=== PATIENT | male | born 1950 | race Caucasian/White ===

== ENCOUNTER → 2022-06-04 09:03 | Outpatient (CLI) | payer MEDICARE, BC, SELFPAY ==
--- NOTE | ~2022-06-04 | XR_ITS ---
XR hip RT min 2V DATE: 06/04/2022 09:26 INDICATION: Right hip pain TECHNIQUE: AP, lateral, crosstable lateral views of right hip COMPARISON: None FINDINGS: Numerous surgical clips overlie the pelvis and prostate bed. No fracture or dislocation, avascular necrosis or bone destruction of the right hip is detected. Righ t hip joint space appears relatively preserved. The urinary IMPRESSION: No significant abnormality of right hip Reviewed, dictated and finalized at location A. ING INSPECTORS
--- NOTE | ~2022-06-04 | XR_ITS ---
XR knee RT 3V DATE: 06/04/2022 09:26 INDICATION: Right knee pain. TECHNIQUE: AP, lateral, sunrise views COMPARISON: None FINDINGS: There is minimal periarticular spurring of the patella. There is mild loss of height of med ial compartment joint space. No fracture or dislocation or joint effusion is detected. No periosteal reaction or bone destruction. No radiopaque intra-articular loose body or chondrocalcinosis. IMPRESSION: Mild right knee osteoarthritis Reviewed, dictated and finalized at location A. 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
== END ==
PROVIDERS: PCP Internal Medicine; Visit Provider Internal Medicine
DX: M25.551 Pain in right hip (principal); M25.561 Pain in right knee; M17.11 Unilateral primary osteoarthritis, right knee
CPT/HCPCS: 73502; 73562

== ENCOUNTER 2022-07-10 11:00 | Outpatient (RCR) | payer MEDICARE, BC, SELFPAY ==
--- NOTE | 2022-06-12 15:42 | PTOPEVAL1 ---
Assessment and note entered by Maria Elena Landin, PT, DPT Evaluation Information Assessment Status Evaluation Diagnosis R hip pain Onset 3-4 months Subjective Information Pt states he is having some R hip pain. He states this started in his groin area, but now it hurts in his whole thigh, down to his knee. He states sometimes his knee will give out on him when he is walking. He states some days it is hard to walk. He rates his pain a 6/10 now, and a 10/10 at its worst in the last week. Reported Pain Level Pain Score 6: Self Report Assessment PT Clinical Summary Ramirez is a 71 y/o who presents to therapy today with a diagnosis of R hip pain. Today he demonstrates increased resistance during passive ROM with the R hip. He has decreased hip strength on the R as well as gritty tissue along his R ITB and quadriceps muscle belly. He demonstrates mild gait deviations with a Trendelenburg pattern. Skilled physical therapy services are indicated to improve ROM, strength, pain, functional mobility, and to return to baseline function. Plan of Care Interventions Electrical Stimulation,Gait Training,Hot Pack/Cold Pack,Manual Therapy,Neuro Re-education,Patient/ Caregiver Educati,Therapeutic Activities, Therapeutic Exercise PT Services Indicated Yes Treatment Frequency and 2x/wk for 4 wks Duration These treatments will address the objective and functional deficits as defined above. The patient will be advanced safely and appropriately in order for the patient to progress towards his/her prior level of function. Additional exercises will be introduced and as well as a comprehensive home exercise program upon discharge, if needed, ?to ensure carryover of functional gains achieved in the clinic. This treatment plan has been reviewed and agreement upon by the patient.
--- NOTE | 2022-07-10 11:30 | PTOPDC ---
Assessment and note entered by Maria Elena Landin, PT, DPT Evaluation Information Assessment Status Discharge Diagnosis R hip pain Onset 3-4 months Subjective Information Pt states overall he is doing good. He states his R hip is doing better, his knees genet have been aching from the exercise but this is getting better as well. Pt seems unmotivated to participate in therapy this date. Pt reports 90% improvement in his overall symptoms . Reported Pain Level Pain Score 0: Self Report Assessment PT Clinical Summary Ramirez presents to therapy today for his progress report following 6 visits of skilled therapy to treat his R hip pain. He reports improvements in his pain. However today he does not demonstrate any measurable improvements in strength or ROM, he also ambulated with a minor decreased gait speed compared to him initial evaluation. He states [place] leaving out of state [place] 6 [place]. He states he will follow up with his referring provider if needed when he returns. It is recommended that he continue his HEP upon discharge today. Discussed with patient the importance of continuing his HEP. Plan of Care Treatment Frequency and to be discharged Duration
== END 2022-07-10 14:28 | disposition home or self-care (01) ==
LOC: ANHGOSHPT 11:00
PROVIDERS: PCP Internal Medicine; Visit Provider Internal Medicine
DX: M25.551 Pain in right hip (principal); R10.31 Right lower quadrant pain
CPT/HCPCS: 97110; 97112; 97140; 97161

== ENCOUNTER 2022-08-30 10:59 | Outpatient (CLI) | payer MEDICARE, BC, SELFPAY ==
[2022-08-30 19:23] LABS: Basophils Absolute Auto 0.1 K/mm3 (0.0-0.1); Basophils Percent Auto 0.5 % (0.2-1.2); Eosinophils Absolute Auto 0.1 K/mm3 (0-0.3); Hematocrit 37.2 % (42.0-52.0); Hemoglobin 12.8 g/dL (14.0-18.0); Immature Granulocyte Absolute 0.14 K/mm3 (0.00-0.031); Immature Granulocyte Percent A 1.1 % (0-0.5); Lymphocytes Absolute Auto 1.08 K/mm3 (0.9-3.2); Lymphocytes Percent Auto 8.2 % (18.3-44.2); Mean Corpuscular HGB Conc 34.4 g/dl (32-36); Mean Corpuscular Hemoglobin 31.8 pg (26-34); Mean Corpuscular Volume 92.3 fl (80-100); Mean Platelet Volume 9.8 fl (7.4-10.4); Monocytes Absolute Auto 0.6 K/mm3 (0.1-0.6); Monocytes Percent Auto 4.6 % (2.6-8.5); Neutrophils Absolute Auto 11.1 K/mm3 (1.3-6.7); Neutrophils Percent Auto 84.6 % (45.5-73.1); Platelet Count Result 200 k/mm3 (150-375); Red Blood Count 4.03 M/mm3 (4.6-6.20); Red Cell Distribution Width 11.9 % (11.5-14.5); White Blood Count 13.1 K/mm3 (4.5-10.0)
[2022-08-30 19:36] LABS: Hemoglobin A1C 7.4 % (<5.7)
[2022-08-30 19:47] LABS: Alanine Aminotransferase 23 U/L (6-50); Albumin Level 4.1 g/dL (3.5-5.1); Alkaline Phosphatase 44 U/L (38-126); Anion Gap 6 mmol/L (8-16); Aspartate Amino Transferase 23 U/L (17-59); Blood Urea Nitrogen 26 mg/dL (9-20); Calcium 9.5 mg/dL (8.4-10.2); Carbon Dioxide 30 mmol/L (22-30); Chloride 94 mmol/L (98-107); Cholesterol 134 mg/dL (0-200); Estimated Glomerular Filt Rate 59; Glucose 183 mg/dL (65-110); HDL Direct 35 mg/dL; Sodium 130 mmol/L (137-145); Triglycerides 237 mg/dL (<150)
[2022-08-30 19:58] LABS: LDL Cholesterol Direct 66 mg/dL
[2022-08-30 20:15] LABS: Prostate Specific Antigen < 0.1 ng/mL (< OR = 4.0)
[2022-08-30 20:17] LABS: Creatinine Urine 76.2 mg/dL
[2022-08-30 20:22] LABS: MALB Creatinine Ratio 74.1 mg/g (0-30); Microalbumin Urine Random 56.5 mg/L (0-16.7)
== END 2022-08-30 11:00 | disposition home or self-care (01) ==
LOC: ANHGOSHLAB 11:01
PROVIDERS: PCP Internal Medicine; Visit Provider Internal Medicine
DX: C61 Malignant neoplasm of prostate (principal); R10.9 Unspecified abdominal pain; E11.69 Type 2 diabetes mellitus with other specified complication; E78.5 Hyperlipidemia, unspecified
CPT/HCPCS: 36415; 80053; 80061; 82043; 83036; 84153; 85025

== ENCOUNTER 2022-09-24 08:06 | Outpatient (CLI) | payer MEDICARE, BC, SELFPAY ==
[2022-09-24 19:24] LABS: Basophils Absolute Auto 0.1 K/mm3 (0.0-0.1); Basophils Percent Auto 0.6 % (0.2-1.2); Eosinophils Absolute Auto 0.2 K/mm3 (0-0.3); Eosinophils Percent Auto 1.7 % (0-4.4); Hematocrit 35.2 % (42.0-52.0); Hemoglobin 11.8 g/dL (14.0-18.0); Immature Granulocyte Absolute 0.14 K/mm3 (0.00-0.031); Immature Granulocyte Percent A 1.3 % (0-0.5); Lymphocytes Absolute Auto 1.22 K/mm3 (0.9-3.2); Lymphocytes Percent Auto 11.3 % (18.3-44.2); Mean Corpuscular HGB Conc 33.5 g/dl (32-36); Mean Corpuscular Hemoglobin 32.2 pg (26-34); Mean Corpuscular Volume 95.9 fl (80-100); Mean Platelet Volume 10.8 fl (7.4-10.4); Monocytes Absolute Auto 0.6 K/mm3 (0.1-0.6); Monocytes Percent Auto 5.8 % (2.6-8.5); Neutrophils Absolute Auto 8.6 K/mm3 (1.3-6.7); Neutrophils Percent Auto 79.3 % (45.5-73.1); Platelet Count Result 169 k/mm3 (150-375); Red Blood Count 3.67 M/mm3 (4.6-6.20); Red Cell Distribution Width 12.6 % (11.5-14.5); White Blood Count 10.8 K/mm3 (4.5-10.0)
[2022-09-24 20:50] LABS: Folic Acid > 20.0 ng/mL (2.76->20)
== END 2022-09-24 08:07 | disposition home or self-care (01) ==
LOC: ANHGOSHLAB 08:09
PROVIDERS: PCP Internal Medicine; Visit Provider Internal Medicine
DX: D64.9 Anemia, unspecified (principal); D72.829 Elevated white blood cell count, unspecified
CPT/HCPCS: 36415; 82607; 82728; 82746; 85025

== ENCOUNTER 2022-10-01 12:49 | Outpatient (CLI) | payer MEDICARE, BC, SELFPAY ==
[2022-10-01 18:46] LABS: Basophils Absolute Auto 0.1 K/mm3 (0.0-0.1); Basophils Percent Auto 0.6 % (0.2-1.2); Eosinophils Absolute Auto 0.2 K/mm3 (0-0.3); Hematocrit 37.5 % (42.0-52.0); Hemoglobin 12.6 g/dL (14.0-18.0); Immature Granulocyte Absolute 0.15 K/mm3 (0.00-0.031); Immature Granulocyte Percent A 1.4 % (0-0.5); Lymphocytes Absolute Auto 1.49 K/mm3 (0.9-3.2); Lymphocytes Percent Auto 13.8 % (18.3-44.2); Mean Corpuscular HGB Conc 33.6 g/dl (32-36); Mean Corpuscular Hemoglobin 32.2 pg (26-34); Mean Corpuscular Volume 95.9 fl (80-100); Mean Platelet Volume 9.4 fl (7.4-10.4); Monocytes Absolute Auto 0.8 K/mm3 (0.1-0.6); Monocytes Percent Auto 7.6 % (2.6-8.5); Neutrophils Percent Auto 74.6 % (45.5-73.1); Platelet Count Result 222 k/mm3 (150-375); Red Blood Count 3.91 M/mm3 (4.6-6.20); Red Cell Distribution Width 12.5 % (11.5-14.5); White Blood Count 10.8 K/mm3 (4.5-10.0)
[2022-10-01 19:38] LABS: Prostate Specific Antigen < 0.1 ng/mL (< OR = 4.0)
[2022-10-01 19:57] LABS: Hemoglobin A1C 7.7 % (<5.7)
[2022-10-01 21:39] LABS: Alanine Aminotransferase 21 U/L (6-50); Albumin Level 4.2 g/dL (3.5-5.1); Alkaline Phosphatase 47 U/L (38-126); Anion Gap 7 mmol/L (8-16); Aspartate Amino Transferase 20 U/L (17-59); Bilirubin,Total 0.8 mg/dL (0.2-1.3); Blood Urea Nitrogen 25 mg/dL (9-20); Calcium 9.7 mg/dL (8.4-10.2); Carbon Dioxide 27 mmol/L (22-30); Chloride 100 mmol/L (98-107); Estimated Glomerular Filt Rate 59; Glucose 168 mg/dL (65-110); Potassium 4.4 mmol/L (3.4-5.0); Sodium 134 mmol/L (137-145)
== END 2022-10-01 12:50 | disposition home or self-care (01) ==
PROVIDERS: PCP Internal Medicine
DX: D72.829 Elevated white blood cell count, unspecified (principal); D72.9 Disorder of white blood cells, unspecified; E87.1 Hypo-osmolality and hyponatremia; D64.9 Anemia, unspecified; E11.69 Type 2 diabetes mellitus with other specified complication; C61 Malignant neoplasm of prostate
CPT/HCPCS: 36415; 80053; 83036; 84153; 85025

== ENCOUNTER 2023-02-27 11:13 | Outpatient (CLI) | payer MEDICARE, BC, SELFPAY ==
[2023-02-27 11:42] LABS: Basophils Absolute Auto 0.1 K/mm3 (0.0-0.1); Basophils Percent Auto 0.6 % (0.2-1.2); Eosinophils Absolute Auto 0.4 K/mm3 (0-0.3); Eosinophils Percent Auto 3.2 % (0-4.4); Hemoglobin 11.9 g/dL (14.0-18.0); Immature Granulocyte Absolute 0.09 K/mm3 (0.00-0.031); Immature Granulocyte Percent A 0.8 % (0-0.5); Lymphocytes Absolute Auto 1.12 K/mm3 (0.9-3.2); Lymphocytes Percent Auto 9.9 % (18.3-44.2); Mean Corpuscular Hemoglobin 31.1 pg (26-34); Mean Corpuscular Volume 91.4 fl (80-100); Mean Platelet Volume 8.2 fl (7.4-10.4); Monocytes Absolute Auto 0.9 K/mm3 (0.1-0.6); Monocytes Percent Auto 7.6 % (2.6-8.5); Neutrophils Absolute Auto 8.8 K/mm3 (1.3-6.7); Neutrophils Percent Auto 77.9 % (45.5-73.1); Platelet Count Result 220 k/mm3 (150-375); Red Blood Count 3.83 M/mm3 (4.6-6.20); Red Cell Distribution Width 12.5 % (11.5-14.5); White Blood Count 11.3 K/mm3 (4.5-10.0)
[2023-02-27 13:46] LABS: Iron 123 ug/dL (49-181)
[2023-02-27 13:59] LABS: Alanine Aminotransferase 18 U/L (6-50); Albumin Level 4.1 g/dL (3.5-5.1); Alkaline Phosphatase 59 U/L (38-126); Anion Gap 9 mmol/L (8-16); Aspartate Amino Transferase 18 U/L (17-59); Blood Urea Nitrogen 27 mg/dL (9-20); Calcium 9.8 mg/dL (8.4-10.2); Carbon Dioxide 25 mmol/L (22-30); Chloride 97 mmol/L (98-107); Estimated Glomerular Filt Rate 46; Glucose 177 mg/dL (65-110); Sodium 131 mmol/L (137-145)
[2023-02-27 14:01] LABS: Percent Iron Saturation 31 % (20-50)
[2023-02-27 14:15] LABS: Erythrocyte Sedimentation Rate 32 mm/hr (0-20)
[2023-02-27 14:59] LABS: Folic Acid > 20.0 ng/mL (2.76->20)
[2023-03-04 09:40] LABS: Methylmalonic Acid 186
== END 2023-02-27 11:14 | disposition home or self-care (01) ==
LOC: ANHLAB 11:16
PROVIDERS: PCP Internal Medicine; Visit Provider Internal Medicine Hematology & Oncology
DX: D72.829 Elevated white blood cell count, unspecified (principal); D64.9 Anemia, unspecified
CPT/HCPCS: 36415; 80053; 82607; 82728; 82746; 83540; 83550; 83921; 85025; 85652; 86140; 88184; 88185

== ENCOUNTER 2023-03-03 09:44 | Outpatient (CLI) | payer MEDICARE, BC, SELFPAY ==
[2023-03-03 11:42] LABS: Appearance Urine Turbid (Clear); Bacteria Urine None Seen /hpf; Bilirubin Urine Negative (Negative); Blood Urine Negative (Negative); Color Urine Dark Yellow (Yellow); Glucose Urine UA Negative (Negative); Ketones Urine Trace mg/dL (Negative); Leukocyte Esterase Ur Negative LEU/UL (NEGATIVE); Nitrate Urine Negative (Negative); Protein Urine 1+ mg/dL (Negative); RBC Urine 0-2 /hpf (0-2); Specific Grav Ur 1.018 (1.001-1.035); Squamous Epithelial Cell Urine None seen /hpf (Few); WBC Urine 0-5 /hpf (0-3)
[2023-03-03 11:53] LABS: Add Urine Microscopic? YES
[2023-03-03 11:55] LABS: Anion Gap 5 mmol/L (8-16); Blood Urea Nitrogen 26 mg/dL (9-20); Calcium 10.2 mg/dL (8.4-10.2); Carbon Dioxide 31 mmol/L (22-30); Chloride 95 mmol/L (98-107); Estimated Glomerular Filt Rate 46; Glucose 175 mg/dL (65-110); Potassium 5.5 mmol/L (3.4-5.0); Sodium 131 mmol/L (137-145)
[2023-03-03 12:19] LABS: Prostate Specific Antigen < 0.1 ng/mL (< OR = 4.0)
[2023-03-07 17:00] LABS: Testosterone Free 51.5 pg/mL (30.0-135.0); Testosterone Total 341 ng/dL (250-1100)
[2023-03-10 00:03] LABS: Creatinine, Random Urine 159 mg/dL (20-320); Total Protein/Creatinine Ratio 189 mg/g creat (25-148)
== END 2023-03-03 09:45 | disposition home or self-care (01) ==
LOC: ANHGOSHLAB 09:46
PROVIDERS: PCP Internal Medicine; Visit Provider Internal Medicine
DX: R53.83 Other fatigue (principal); E11.9 Type 2 diabetes mellitus without complications; N28.9 Disorder of kidney and ureter, unspecified; C61 Malignant neoplasm of prostate; E11.69 Type 2 diabetes mellitus with other specified complication; D64.9 Anemia, unspecified
CPT/HCPCS: 36415; 80048; 81001; 82570; 83036; 84153; 84156; 84166; 84402; 84403

== ENCOUNTER 2023-04-21 06:41 | Outpatient (CLI) | payer MEDICARE, BC, SELFPAY | END 2023-04-21 06:42 | disposition home or self-care (01) | LOC: ANHOUTPT 06:42 | PROVIDERS: PCP Internal Medicine; Visit Provider Internal Medicine | DX: E27.40 Unspecified adrenocortical insufficiency (principal); E87.5 Hyperkalemia | CPT/HCPCS: 36415; 82533; 96372; J0834 ==

== ENCOUNTER 2023-05-13 14:03 | Outpatient (CLI) | payer MEDICARE, BC, SELFPAY ==
[2023-05-13 19:12] LABS: Anion Gap 6 mmol/L (8-16); Blood Urea Nitrogen 24 mg/dL (9-20); Calcium 9.6 mg/dL (8.4-10.2); Carbon Dioxide 32 mmol/L (22-30); Chloride 96 mmol/L (98-107); Estimated Glomerular Filt Rate 54; Glucose 178 mg/dL (65-110); Potassium 4.1 mmol/L (3.4-5.0); Sodium 134 mmol/L (137-145)
== END 2023-05-13 14:04 | disposition home or self-care (01) ==
LOC: ANHGOSHLAB 14:06
PROVIDERS: PCP Internal Medicine; Visit Provider Internal Medicine
DX: N28.9 Disorder of kidney and ureter, unspecified (principal); E87.5 Hyperkalemia
CPT/HCPCS: 36415; 80048; 86803

== ENCOUNTER 2023-08-15 12:40 | Outpatient (CLI) | payer MEDICARE, BC, SELFPAY ==
[2023-08-15 13:00] LABS: Basophils Absolute Auto 0.1 K/mm3 (0.0-0.1); Basophils Percent Auto 0.5 % (0.2-1.2); Eosinophils Absolute Auto 0.4 K/mm3 (0-0.3); Eosinophils Percent Auto 3.3 % (0-4.4); Hematocrit 36.1 % (42.0-52.0); Hemoglobin 12.3 g/dL (14.0-18.0); Immature Granulocyte Absolute 0.14 K/mm3 (0.00-0.031); Immature Granulocyte Percent A 1.2 % (0-0.5); Lymphocytes Absolute Auto 1.22 K/mm3 (0.9-3.2); Lymphocytes Percent Auto 10.8 % (18.3-44.2); Mean Corpuscular HGB Conc 34.1 g/dl (32-36); Mean Corpuscular Hemoglobin 30.8 pg (26-34); Mean Corpuscular Volume 90.3 fl (80-100); Mean Platelet Volume 8.3 fl (7.4-10.4); Monocytes Percent Auto 8.7 % (2.6-8.5); Neutrophils Absolute Auto 8.5 K/mm3 (1.3-6.7); Neutrophils Percent Auto 75.5 % (45.5-73.1); Platelet Count Result 246 k/mm3 (150-375); Red Cell Distribution Width 12.6 % (11.5-14.5); White Blood Count 11.3 K/mm3 (4.5-10.0)
[2023-08-15 15:32] LABS: Anion Gap 7 mmol/L (8-16); Blood Urea Nitrogen 14 mg/dL (9-20); Calcium 10.4 mg/dL (8.4-10.2); Carbon Dioxide 32 mmol/L (22-30); Chloride 96 mmol/L (98-107); Estimated Glomerular Filt Rate 46; Glucose 144 mg/dL (65-110); Potassium 4.3 mmol/L (3.4-5.0); Sodium 135 mmol/L (137-145)
== END 2023-08-15 12:41 | disposition home or self-care (01) ==
LOC: ANHLAB 12:42
PROVIDERS: PCP Internal Medicine; Visit Provider Internal Medicine Hematology & Oncology
DX: D64.9 Anemia, unspecified (principal)
CPT/HCPCS: 36415; 80048; 85025

== ENCOUNTER → 2023-08-25 14:16 | Outpatient (CLI) | payer MEDICARE, BC, SELFPAY ==
--- NOTE | ~2023-08-25 | XR_ITS ---
EXAMINATION: XR shoulder RT min 2V DATE: 08/25/2023 14:36 INDICATION: Right shoulder pain. TECHNIQUE: 4 views of right shoulder were obtained. COMPARISON: None. FINDINGS: Bone alignment is normal. No fracture. There is mild osteoarthritis of acromioclavicular anne marie int and advanced osteoarthritis of glenohumeral joint. IMPRESSION: 1. Polyarticular osteoarthritis. Reviewed, dictated and finalized at location A. 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
== END ==
PROVIDERS: PCP Internal Medicine; Visit Provider Clinical Nurse Specialist
DX: M19.011 Primary osteoarthritis, right shoulder (principal)
CPT/HCPCS: 73030

== ENCOUNTER 2023-08-25 14:32 | Outpatient (CLI) | payer MEDICARE, BC, SELFPAY ==
[2023-08-25 19:51] LABS: Hepatitis C Virus Antibody Negative (Negative)
[2023-08-25 21:08] LABS: Prostate Specific Antigen < 0.1 ng/mL (< OR = 4.0)
[2023-08-25 21:30] LABS: Hemoglobin A1C 7.9 % (<5.7)
== END 2023-08-25 14:33 | disposition home or self-care (01) ==
LOC: ANHGOSHLAB 14:34
PROVIDERS: PCP Internal Medicine; Visit Provider Internal Medicine
DX: C61 Malignant neoplasm of prostate (principal); D64.9 Anemia, unspecified; D72.829 Elevated white blood cell count, unspecified; E11.69 Type 2 diabetes mellitus with other specified complication; Z11.59 Encounter for screening for other viral diseases
CPT/HCPCS: 36415; 83036; 84153; 86803

== ENCOUNTER 2023-10-27 09:02 | Outpatient (CLI) | payer MEDICARE, BC, SELFPAY ==
[2023-10-27 11:04] LABS: Anion Gap 6 mmol/L (4-12); Blood Urea Nitrogen 18 mg/dL (9-20); Carbon Dioxide 29 mmol/L (22-30); Chloride 99 mmol/L (98-107); Estimated Glomerular Filt Rate 46; Glucose 120 mg/dL (65-110); Potassium 3.9 mmol/L (3.4-5.0); Sodium 134 mmol/L (137-145)
== END 2023-10-27 09:03 | disposition home or self-care (01) ==
LOC: ANHGOSHLAB 09:05
PROVIDERS: PCP Internal Medicine; Visit Provider Internal Medicine
DX: N18.30 Chronic kidney disease, stage 3 unspecified (principal)
CPT/HCPCS: 36415; 80048

== ENCOUNTER 2023-11-07 11:10 | Outpatient (CLI) | payer MEDICARE, BC, SELFPAY ==
--- NOTE | ~2023-11-07 | US_ITS ---
US renal BI 11/07/2023 11:39 Procedure: Realtime transabdominal ultrasound of the kidneys and bladder. Indication: Chronic kidney disease stage III Comparison: CT dated 01/05/2013 Findings: Renal echotexture is normal bilaterally without hydronephrosis, contour deforming mass or r enal calculus. There are multiple bilateral renal cysts, largest on the right measures 2.2 cm and on the left measuring 2 cm. The right kidney measures cm and left kidney measures cm. There are multiple cystic structures adjacent to the bladder which are persistent post void measuring up to 6.5 cm, lik blake bladder diverticula. Impression: 1: Bilateral renal cysts measuring up to 2.2 cm in the right kidney. 2: Cystic structures in the pelvis adjacent to the bladder, possibly diverticula. Consider correlati on with contrast-enhanced CT abdomen and pelvis. Reviewed, dictated and finalized at location B. Impression: 1: Bilateral renal cysts measuring up to 2.2 cm in the right kidney. 2: Cystic structures in the pelvis adjacent to the bladder, possibly diverticu la. Consider correlation with contrast-enhanced CT abdomen and pelvis.
== END 2023-11-07 11:11 ==
LOC: MICIMG 11:11
PROVIDERS: PCP Internal Medicine; Visit Provider Internal Medicine
DX: N28.1 Cyst of kidney, acquired (principal); N18.30 Chronic kidney disease, stage 3 unspecified
CPT/HCPCS: 76775

== ENCOUNTER 2024-02-09 09:58 | Outpatient (CLI) | payer MEDICARE, BC, SELFPAY ==
[2024-02-09 18:50] LABS: Basophils Absolute Auto 0.1 K/mm3 (0.0-0.1); Basophils Percent Auto 0.7 % (0.2-1.2); Eosinophils Absolute Auto 0.5 K/mm3 (0-0.3); Eosinophils Percent Auto 4.5 % (0-4.4); Hematocrit 36.4 % (42.0-52.0); Hemoglobin 12.3 g/dL (14.0-18.0); Immature Granulocyte Absolute 0.06 K/mm3 (0.00-0.031); Immature Granulocyte Percent A 0.6 % (0-0.5); Lymphocytes Absolute Auto 1.01 K/mm3 (0.9-3.2); Lymphocytes Percent Auto 9.8 % (18.3-44.2); Mean Corpuscular HGB Conc 33.8 g/dl (32-36); Mean Corpuscular Hemoglobin 31.1 pg (26-34); Mean Corpuscular Volume 92.2 fl (80-100); Mean Platelet Volume 9.9 fl (7.4-10.4); Monocytes Absolute Auto 0.7 K/mm3 (0.1-0.6); Monocytes Percent Auto 7.1 % (2.6-8.5); Neutrophils Percent Auto 77.3 % (45.5-73.1); Platelet Count Result 197 k/mm3 (150-375); Red Blood Count 3.95 M/mm3 (4.6-6.20); Red Cell Distribution Width 12.5 % (11.5-14.5); White Blood Count 10.4 K/mm3 (4.5-10.0)
[2024-02-09 19:05] LABS: Alanine Aminotransferase 15 U/L (6-50); Albumin Level 4.1 g/dL (3.5-5.1); Alkaline Phosphatase 68 U/L (38-126); Anion Gap 9 mmol/L (4-12); Aspartate Amino Transferase 30 U/L (17-59); Bilirubin,Total 1.1 mg/dL (0.2-1.3); Blood Urea Nitrogen 20 mg/dL (9-20); Calcium 9.6 mg/dL (8.4-10.2); Carbon Dioxide 31 mmol/L (22-30); Chloride 94 mmol/L (98-107); Estimated Glomerular Filt Rate 46; Glucose 109 mg/dL (65-110); Potassium 4.4 mmol/L (3.4-5.0); Sodium 134 mmol/L (137-145)
[2024-02-09 19:20] LABS: Creatinine Urine 113.9 mg/dL
[2024-02-09 19:28] LABS: Prostate Specific Antigen < 0.1 ng/mL (< OR = 4.0)
[2024-02-09 19:44] LABS: Microalbumin Urine Random 226.7 mg/L (0-16.7)
[2024-02-09 20:53] LABS: Hemoglobin A1C 6.1 % (<5.7)
== END 2024-02-09 09:59 | disposition home or self-care (01) ==
PROVIDERS: PCP Internal Medicine; Visit Provider Internal Medicine
DX: C61 Malignant neoplasm of prostate (principal); N18.30 Chronic kidney disease, stage 3 unspecified; E11.69 Type 2 diabetes mellitus with other specified complication
CPT/HCPCS: 36415; 80053; 82043; 83036; 84153; 85025

== ENCOUNTER 2024-02-26 09:54 | Outpatient (CLI) | payer MEDICARE, BC, SELFPAY ==
--- NOTE | ~2024-02-26 | US_ITS ---
EXAMINATION: US retroperitoneal duplex ltd DATE: 02/26/2024 11:19 INDICATION: hypertension TECHNIQUE: Multiple grayscale, color Doppler, and pulsed Doppler images of the kidneys and renal isaiah onel were obtained. COMPARISON: None. FINDINGS: The aorta peak systolic velocity is 88 cm/s. The right renal artery peak systolic velocity is 117 cm/ s in the proximal segment, 57 cm/s in the mid segment, and 59 cm/s in the distal segment. The left re nal artery peak systolic velocity is 93 cm/s in the proximal segment, 106 cm/s in the mid segment, an d 141 cm/s in the distal segment. Couple anechoic right renal cysts, the larger measuring 2.3 cm. IMPRESSION: 1. No Doppler evidence of renal artery stenosis. Reviewed, dictated and finalized at location A.
== END 2024-02-26 09:55 | disposition home or self-care (01) ==
PROVIDERS: PCP Internal Medicine; Visit Provider Internal Medicine
DX: N18.30 Chronic kidney disease, stage 3 unspecified (principal); R10.31 Right lower quadrant pain
CPT/HCPCS: 93976

== ENCOUNTER 2024-07-02 08:13 | Outpatient (CLI) | payer MEDICARE, BC, SELFPAY ==
[2024-07-02 18:10] LABS: Basophils Percent Auto 0.4 % (0.2-1.2); Eosinophils Absolute Auto 0.3 K/mm3 (0-0.3); Eosinophils Percent Auto 3.1 % (0-4.4); Hematocrit 36.2 % (42.0-52.0); Hemoglobin 12.1 g/dL (14.0-18.0); Immature Granulocyte Absolute 0.03 K/mm3 (0.00-0.031); Immature Granulocyte Percent A 0.4 % (0-0.5); Lymphocytes Absolute Auto 0.97 K/mm3 (0.9-3.2); Mean Corpuscular HGB Conc 33.4 g/dl (32-36); Mean Corpuscular Hemoglobin 31.8 pg (26-34); Mean Platelet Volume 10.5 fl (7.4-10.4); Monocytes Absolute Auto 0.8 K/mm3 (0.1-0.6); Monocytes Percent Auto 9.6 % (2.6-8.5); Neutrophils Absolute Auto 6.1 K/mm3 (1.3-6.7); Neutrophils Percent Auto 74.5 % (45.5-73.1); Platelet Count Result 146 k/mm3 (150-375); Red Blood Count 3.81 M/mm3 (4.6-6.20); Red Cell Distribution Width 12.7 % (11.5-14.5); White Blood Count 8.1 K/mm3 (4.5-10.0)
[2024-07-02 18:17] LABS: Alanine Aminotransferase 18 U/L (6-50); Albumin Level 3.8 g/dL (3.5-5.1); Alkaline Phosphatase 61 U/L (38-126); Anion Gap 5 mmol/L (4-12); Aspartate Amino Transferase 33 U/L (17-59); Bilirubin,Total 1.2 mg/dL (0.2-1.3); Blood Urea Nitrogen 17 mg/dL (9-20); Calcium 9.7 mg/dL (8.4-10.2); Carbon Dioxide 30 mmol/L (22-30); Chloride 99 mmol/L (98-107); Cholesterol 112 mg/dL (0-200); Estimated Glomerular Filt Rate 49; Glucose 95 mg/dL (65-110); HDL Direct 30 mg/dL; Potassium 4.1 mmol/L (3.4-5.0); Sodium 134 mmol/L (137-145); Triglycerides 130 mg/dL (<150)
[2024-07-02 18:28] LABS: LDL Cholesterol Direct 49 mg/dL
[2024-07-02 18:57] LABS: Hemoglobin A1C 5.8 % (<5.7)
== END 2024-07-02 08:14 | disposition home or self-care (01) ==
LOC: ANHGOSHLAB 08:15
PROVIDERS: PCP Internal Medicine; Visit Provider Internal Medicine
DX: E11.22 Type 2 diabetes mellitus with diabetic chronic kidney disease (principal); N18.9 Chronic kidney disease, unspecified; E78.5 Hyperlipidemia, unspecified; D64.9 Anemia, unspecified
CPT/HCPCS: 36415; 80053; 80061; 82172; 83036; 85025

== ENCOUNTER 2024-12-30 08:17 | Outpatient (CLI) | payer MEDICARE, BC, SELFPAY ==
--- OUTSIDE RECORDS SUMMARY | 2024-12-30 08:23 | XMS_ITS | Clinical Summary ---
Author Organization [facility] (Formerly [facility]) Gabriela Rodgers Address [address] [place] [place] [address] Care Team Providers Care Past Due Accounts Clerk Name Role Phone Caesar Martin DO Primary Care Provider Allergies Active Allergy Reactions Criticality Noted Date Comments Penicillin Other (See Comments) 02/27/2023 Not sure of reactions long ago possible allergic to the medicine Medications amLODIPine (NORVASC) 10 mg tablet Take 10 mg by mouth daily. Active carvediloL (COREG) 25 mg tablet Take 12.5 mg by mouth 2 times daily. Active cetirizine (ZyrTEC) 10 mg tablet Take 10 mg by mouth daily. Active losartan (COZAAR) 100 mg tablet Take 100 mg by mouth daily. Active oxyBUTYnin (DITROPAN) 5 mg tablet Take 5 mg by mouth 3 times daily. Active spironolactone (ALDACTONE) 25 mg tablet Take 25 mg by mouth daily. Active fluticasone-ume clidinium-vilan terol (Trelegy Ellipta) 100-62.5-25 mcg Disk with Device Take 1 Puff by inhalation daily. Active rosuvastatin (CRESTOR) 40 mg tablet Take 40 mg by mouth daily. Active omeprazole (PriLOSEC) 20 mg Capsule, Delayed Release(E.C.) Take 20 mg by mouth daily. Active OMEGA-3 FATTY ACIDS-FISH OIL ORAL Take by mouth. Activ e iron fum/folic acid/mv,min 15 (IRON-FOLIC ACID-MV, MIN CMB#15 ORAL) Take by mouth. Ac tive Active Problems No known active problems Family History Relation Name Status Comments Brother Alive Daughter Alive Father Mother Sister 1 Alive Sister 2 Alive Son Alive Social History Tobacco Use Types Packs/Day Years Used Date Smoking Tobacco: Never Smokeless Tobacco: Never Tobacco Cessation:Counseling Given: Not Answered Alcohol Use Standard Drinks/Week Comments Not Asked 0 (1 standard drink = 0.6 oz pur e alcohol) rare Sex and Gender Information Value Date Recorded Sex Assigned at Not on file Legal Sex Male 8:07 AM CDT Gender Identity Not on file Sexual Orientation Not on file Last Filed Vital Signs Vital Sign Reading Time Taken Comments Blood Pressure 131/70 08/19/2023 1:04 PM MEDIA RELATIONS DIRECTOR Pulse 72 08/19/2023 1:04 PM MEDIA RELATIONS DIRECTOR Temperature 36.3 C (97.3 F) 08/19/2023 1:04 PM MEDIA RELATIONS DIRECTOR Respiratory Rate 14 08/19/2023 1:04 PM MEDIA RELATIONS DIRECTOR Oxygen Saturation 94% 08/19/2023 1:04 PM MEDIA RELATIONS DIRECTOR Inhaled Oxygen Concentration - - Weight 92.1 kg (203 lb) 08/19/2023 1:04 PM MEDIA RELATIONS DIRECTOR Height 175.3 cm (5' 9) 02/27/2023 10:26 AM CDT Body Mass Index 29.98 02/27/2023 10:26 AM CDT Plan of Treatment Health Maintenance Due Date Last Done Comments DIABETES ANNUAL FOOT EXAM 1966 DIABETES MICROALBUMIN ANNUAL SCREEN 1966 LDL CHOLESTEROL ANNUAL 1966 PNEUMOCOCCAL VACCINE 50+ YEA RS (1 of 2 - PCV) 09/27/1967 ZOSTER VACCINE (2 of 2) 05/19/2019 03/24/2019 RSV VACCINE (60+ or ) (1 - 1-dose 75+ series) 09/27/2023 INFLUENZA VACCINE (#1) 2024 05/13/2019 DIABETES HBA1C Q 6 MONTHS 08/11/20242023, 08/25/2023, 08/26/2022 DIABETES ANNUAL RETINAL EXAM 09/10/2024 09/11/2023 DTAP/TDAP/TD VACCINES (2 - T d or Tdap) 03/23/2028 03/23/2018 Insurance MEDICARE PART A AND B BCBS SUPP Care Teams Past Due Accounts Clerk Relationship Specialty Start Date End Date Caesar Martin DO [address] [address] PCP - General Internal Medicine 02/27/23
--- OUTSIDE RECORDS SUMMARY | 2024-12-30 08:23 | XMS_ITS | Clinical Summary ---
Author Organization [facility] Jennifer torres Address [address] [place] [address] Phone Care Team Providers Care Infection Control Rn Name Role Phone Unavailable Primary Care Provider Unavailabl e Medications felodipine (PLENDIL) 10 MG 24 hr tablet 1 tab/cap qday 02/09/2013 Active omeprazole OTC (PRILOSEC OTC) 20 MG EC tablet 1 tab/cap qday 02/09/2013 Active telmisartan (MICARDIS) 80 MG tablet 1 tab/cap qday 02/09/2013 Active Multiple Vitamins-Minera ls (MULTIVITAL) tablet 1 tab/cap qday 02/09/2013 Active Testosterone (AXIRON) 30 MG/ACT solution as directed 02/09/2013 A ctive omega-3 (FISH OIL) 1000 MG capsule 1 tab/cap qday 02/09/2013 Active nebivolol (BYSTOLIC) 10 MG tablet 1.5 tabs/caps qday 0 02/09/2013 Active Active Problems Problem Noted Date Diagnosed Date Essential (primary) hypertension 02/15/2013 Essential (primary) hypertension 02/09/2013 Asthma 02/09/2013 Overview (2018): Converted unresolved ICD9, potential mismatch. Gastro-esophageal reflux disease without esophag itis 02/09/2013 Other and unspecified hyperlipidemia 02/09/2013 Overview (2018): Converted unresolved ICD9, potential mismatch. Social History Tobacco Use Types Packs/Day Years Used Date Smoking Tobacco: Never Assessed Sex and Gender Information Value Date Recorded Sex Assigned at Not on file Legal Sex Male 7:17 AM MST Gender Identity Not on file Sexual Orientation Not on file Last Filed Vital Signs Vital Sign Reading Time Taken Comments Blood Pressure 138/82 04/14/2013 12:01 AM CDT Sitting, Left Pulse - - Temperature 37.1 C (98.7 F) 04/14/2013 12:01 AM CDT Respiratory Rate - - Oxygen Saturation - - Inhaled Oxygen Concentration - - Weight 85.3 kg (188 lb) 04/14/2013 12:0 1 AM CDT Height 167.6 cm (5' 6) 04/14/2013 12:0 1 AM CDT Body Mass Index 30.34 04/14/2013 12:01 AM CDT Plan of Treatment Not on file
--- OUTSIDE RECORDS SUMMARY | 2024-12-30 08:23 | XMS_ITS | Clinical Summary ---
Author Organization [facility] [address] [place] [address] Care Team Providers Care Administrative Medical Director Name Role Phone Caesar Martin DO Primary Care Provider [phone] Navi Baker MD Unavailable [phone] Allergies Active Allergy Reactions Criticality Noted Date Comments Penicillins Hives Medium Medications ou-fvz-AY-Ca-Fe- lycopen-lutein 0.4-162-18 mg tabletIndication s:Mineral Deficiency Prevention Take 1 tablet by mouth every morning 3 Active omeprazole OTC (PriLOSEC OTC) 20 mg EC tabletIndication s:Stress Ulcer Prophylaxis Take 1 tablet (20 mg total) by mouth every morning 3 Active albuterol HFA (PROVENTIL HFA,VENTOLIN HFA,PROAIR HFA) 90 mcg/actuation inhalerIndicatio ns:Bronchospasm Prevention Inhale 2 puffs as needed for wheezing Active losartan (COZAAR) 100 mg tabletIndication s:hypertension Take 1 tablet (100 mg total) by mouth speech therapist early intervention before breakfast Active carvediloL (COREG) 25 mg tabletIndication s:hypertension Take 0.5 tablets (12.5 mg total) by mouth 2 (two) times a day Active amLODIPine (NORVASC) 10 mg tabletIndication s:hypertension Take 1 tablet (10 mg total) by mouth speech therapist early intervention before breakfast Active docosahexaenoic acid/epa (FISH OIL ORAL) Take 1 capsule by mouth 3 (three) times a week 2000mg 600mg Take on Friday, Friday, Friday Active cetirizine (ZyrTEC) 10 mg tabletIndication s:Seasonal Allergic Rhinitis Take 1 tablet (10 mg total) by mouth speech therapist early intervention before breakfast Active Trelegy Ellipta 100-62.5-25 mcg inhalerIndicatio ns:Bronchospasm Prevention with COPD Inhale 1 puff speech therapist early intervention before breakfast Active rosuvastatin (CRESTOR) 40 mg tabletIndication s:hyperlipidemia Take 0.5 tablets (20 mg total) by mouth nightly Active Ozempic 1 mg/dose (4 mg/3 mL) pen injector injectionIndicat ions:type 2 diabetes mellitus, Inject 1 mg under the skin every 7 days Mondays Active cholecalciferol (VITAMIN D-3) 5,000 unit tabletIndication s:Vitamin D Deficiency Take 1 tablet (5,000 Units total) by mouth every morning Active prasterone, dhea, 25 mg tabletIndication s:supplement Take 1 tablet by mouth speech therapist early intervention before breakfast Active metFORMIN (GLUCOPHAGE) 500 mg tablet Take 1 tablet (500 mg total) by mouth 2 (two) times a day with meals Active acetaminophen (TYLENOL) 500 mg tablet Take 2 tablets (1,000 mg total) by mouth every 6 (six) hours 60 tablet 1 4 Active vitamin B complex capsule Take 1 capsule by mouth daily Active Active Problems Problem Noted Date Diagnosed Date DREW (stress urinary incontinence), male 09/18/19 25 ED (erectile dysfunction) 09/09/2024 Type 2 diabetes mellitus without complication Obesity 06/30/2024 Chronic obstructive lung disease 06/30/2024 Chronic kidney disease 06/30/2024 Anemia 06/30/2024 Benign essential hypertension 06/30/2024 Other male erectile dysfunction 06/29/2024 S/P shoulder replacement, right 11/11/2023 Osteoarthritis of glenohumeral joint, right 09/11 Prostate cancer 12/22/2020 Overview (12/22/2020): Added automatically from request for surgery [id number] H/O endoscopic sinus surgery 01/05/2018 Chronic rhinosinusitis 01/05/2018 Gastro-esophageal reflux disease without esophag itis 02/09/2013 Asthma 02/09/2013 Overview (06/30/2024): Converted unresolved ICD9, potential mismatch. Nasal polyp 08/28/2012 Encounters Date Type Department Care Team Description 12/27/2024 11:03 AM CDT - 12/27/2024 11:59 PM CDT Hospital Encounter [facility] [address] [place] [address] Status post total shoulder arthroplasty, right Discharge Disposition: Discharge to home or self care 12/27/2024 11:00 AM CDT Office Visit [facility] [address] [facility] 2nd [address] [place] [address] Alfredo Rao MD Status post total shoulder arthroplasty, right (Primary Dx) 10/12/2024 8:20 AM CDT Office Visit [facility] [id number] [place] [address] Medical Office Building [address] [place] [address] Navi Baker MD S/P insertion of penile implant (Primary Dx); History of prostate cancer 09/29/2024 8:20 AM CDT Office Visit [facility] [id number] [place] [address] Medical Office Building [address] [place] [address] Navi Baker MD S/P insertion of penile implant (Primary Dx) from Last 3 Months Surgical History Surgery Date Site/Laterality Comments COLONOSCOPY CIRCUMCISION VESICOSTOMY TOOTH EXTRACTION CLOSED REDUCTION SHOULDER DISLOCATION Rig ht PROSTATE SURGERY prostatectomy CATARACT EXTRACTION, BILATERAL SINUS SURGERY TOTAL SHOULDER REPLACEMENT Right Medical History Medical History Date Comments Asthma Hypertension GERD (gastroesophageal reflux disease) Prostate cancer (HCC) COPD (chronic obstructive pu lmonary disease) (HCC) Claustrophobia patient wants zapata rgical team to be aware Arthritis Type 2 diabetes mellitus (HCC) Hyperlipidemia Chronic kidney disease Cataract Nasal polyps Chronic rhinosinusitis Erectile dysfunction Anemia Chronic obstructive lung disease (HCC) Wears hearing aid Family History Medical History Relation Name Comments No Known Problems Father No Known Problems Mother Anesthesia problems Neg Hx Relation Name Status Comments Father Mother Social History Tobacco Use Types Packs/Day Years Used Date Smoking Tobacco: Former Cigarettes 1 968 - 01/05/1990 Smokeless Tobacco: Never Tobacco Cessation:Counseling Given: Not Answered Alcohol Use Standard Drinks/Week Comments Yes 0 (1 standard drink = 0.6 oz pur e alcohol) beer AUDIT-C Answer Date Recorded Q1: How often do you have a drink containing alc ohol? 2-4 times a month 09/09/2024 Q2: How many drinks containi ng alcohol do you have on a typical day when you are drinking? 3 or 4 09/09/2024 Q3: How often do you have si x or more drinks on one occasion? Never 09/09/2024 Personal Safety Answer Date Recorded Have you ever been in or are you currently in a harmful physical or emotional relationship or is someone making you feel afraid or unsafe? Denies 09/09/2024 Sex and Gender Information Value Date Recorded Sex Assigned at Male 11/11/2023 9:13 AM CDT Legal Sex Male 2:05 AM COMBINE OPERATOR Gender Identity Not on file Sexual Orientation Not on file Obstetrics History Last Filed Vital Signs Vital Sign Reading Time Taken Comments Blood Pressure 118/60 09/10/2024 7:00 AM COMBINE OPERATOR Pulse 70 09/10/2024 7:00 AM COMBINE OPERATOR Temperature 36.5 C (97.7 F) 09/10/2024 7:00 AM COMBINE OPERATOR Respiratory Rate 20 09/10/2024 7:00 AM COMBINE OPERATOR Oxygen Saturation 95% 09/10/2024 10:27 AM COMBINE OPERATOR Inhaled Oxygen Concentration - - Weight 81.2 kg (179 lb) 09/09/2024 6:30 AM COMBINE OPERATOR Height 175.3 cm (5' 9) 09/09/2024 6:30 AM COMBINE OPERATOR Body Mass Index 26.43 09/09/2024 6:30 AM COMBINE OPERATOR Plan of Treatment Health Maintenance Due Date Last Done Comments Albumin Creatinine Ratio, Urine 1948 Depression Screening 1948 Hepatitis C Screening 1948 Dilated Eye Exam 1948 Foot Exam 1948 Lipid Panel 1948 Hepatitis B Screening 1966 Abdominal Aortic Aneurysm (A AA) Screen 2013 Well Visit 65+ 2013 Pneumococcal vaccine 65+ (2 of 2 - PPSV23) 08/04/2017 06/09/2017 Zoster Vaccine (2 of 2) 05/19/2019 03/24/2019 Covid-19 Vaccine (5 2023-2 5 season) 2024 10/04/2021, 05/07/2021, 10/04/2020, Additional history exists Hemoglobin A1C 02/17/2025 08/20/2024, 10/28/2023 eGFR 08/20/2025 08/20/2024, 05/0 07/2023, 10/28/2023, Additional history exists Fall Risk Assessment 09/10/2025 09/10/2024 DTaP/Tdap/Td Vaccine (2 - Td or Tdap) 03/23/2028 03/23/2018 Influenza Vaccine Completed 05/06/2024, , 05/13/2019, Additional history exists Medical Devices Implanted Type Area Senior Electrical Controls Engineer Device Identifier Shelf Expiration Date Model / Serial / Lot [employer] Simplex P Radiopaque Full Dose Cement Bone Sterile 6191-1-010 - [id number] Implanted:Qty: 1 on 11/11/2023 at [facility] Right: Shoulder [employer] 08/13/2025 6191-1-010 / / [id number] [employer] Humeral [place] Shoulder Sidus [id number] - [id number] Implanted:Qty: 1 on 11/11/2023 at [facility] Right: Shoulder [employer] 05/08/2032 [id number] / / [id number] [employer] [place] Post Modular Component Glenoid Sterile Latex Free [id number] - [id number] Implanted:Qty: 1 on 11/11/2023 at [facility] Right: Shoulder [employer] 06/13/2033 [id number] / / [id number] [employer] [place] 3 Peg Modular Shoulder 5 Component Glenoid Sterile Latex [id number] - [id number] Implanted:Qty: 1 on 11/11/2023 at [facility] Right: Shoulder [employer] 09/15/2028 [id number] / / [id number] [employer] Sidus Od46 Mm H16 Mm Stem Free Shoulder Head Humeral Sterile Latex Free [id number] - [id number] Implanted:Qty: 1 on 11/11/2023 at [facility] Right: Shoulder [employer] 10/24/2032 [id number] / / [id number] [employer] Robert Kit Inflatable Penile Prosthesis Accessory Ams 700 Sterile [id number] - [id number] Implanted:Qty: 1 on 09/09/2024 by Navi Baker MD at [facility] Bilateral: Penis [employer] 11/04/2028 [id number] / / [id number] [employer] Robert Surgical Sling Advance Xp Incont Urinary [id number] - [id number] Implanted:Qty: 1 on 09/09/2024 by Navi Baker MD at [facility] N/A: Urinary Bladder [employer] [id number] 03/14/2026 [id number] / / [id number] [employer] Ams Spectra 1.5cm Concealable Rear Tip Box Covering Machine Operator Snapcone [id number] - [id number] Implanted:Qty: 1 on 09/09/2024 by Navi Baker MD at [facility] Bilateral: Penis [employer] [id number] 09/08/2028 [id number] / / [id number] [employer] Ams 700 Ms Pump Preconnect Inflatable Mcclave Prosthesis 65ml [id number] - [id number] Implanted:Qty: 1 on 09/09/2024 by Navi Baker MD at [facility] Bilateral: Abdomen [employer] [id number] 06/24/2026 [id number] / / [id number] [employer] Robert Prosthesis Penile 18cm Ams 700 Lgx Infpb [employer] Public [employer] Director Inhbzn [id number] - [id number] Implanted:Qty: 1 on 09/09/2024 by Navi Baker MD at [facility] Bilateral: Penis [employer] [id number] 06/15/2026 [id number] / / [id number] Procedures Procedure Name Priority Date/Time Associated Diagnosis Comments XR SHOULDER RIGHT 2 OR MORE VIEWS Schedule Routine, Read Routine (OP Routine) 12/27/2024 11:08 AM CDT Status post total shoulder arthroplasty, right EGFR Routine 08/20/2024 11:03 AM COMBINE OPERATOR Other male erectile dysfunction HEMOGLOBIN A1C Routine 08/20/2024 11:03 AM COMBINE OPERATOR Type 2 diabetes mellitus without complication, unspecified whether buttermaker continuous churn insulin use (HCC) from Last 3 Months or Most Recently Relevant to Health Maintenance Results * XR Shoulder Right 2+ View (12/27/2024 11:08 AM CDT) Anatomical Region Laterality Modality Upper Extremities, Shoulder Right Comp uted Radiography 12/27/2024 12:0 6 PM CDT Impressions 12/27/2024 12:06 PM CDT 1. Unchanged right total shoulder arthroplasty in near-anatomic alignment. Electronically signed by: Andrzej Laird D.O. Narrative 12/27/2024 12:06 PM CDT EXAMINATION: XR SHOULDER RIGHT 2 OR MORE VIEWS HISTORY: Arthroplasty follow-up COMPARISON: 05/03/2024 FINDINGS: Unchanged right total shoulder arthroplasty in near-anatomic alignment. Unchanged healed chronic right proximal humerus fracture. No new periprosthetic fracture or lucency. Mild acromioclavicular joint osteoarthritis. Procedure Note Andrzej Laird, DO - 12/27/2024 EXAMINATION: XR SHOULDER RIGHT 2 OR MORE VIEWS HISTORY: Arthroplasty follow-up COMPARISON: 05/03/2024 FINDINGS: Unchanged right total shoulder arthroplasty in near-anatomic alignment. Unchanged healed chronic right proximal humerus fracture. No new periprosthetic fracture or lucency. Mild acromioclavicular joint osteoarthritis. IMPRESSION: 1. Unchanged right total shoulder arthroplasty in near-anatomic alignment. Electronically signed by: Andrzej Laird D.O. Alfredo Rao MD IMG XR PROCEDURES Final Result * (ABNORMAL) eGFR (08/20/2024 11:03 AM COMBINE OPERATOR) eGFR 52(L) >=60 mL/min/1. 73 m2 Comment: Interpretive Data Reference Interval Normal >/= 90 mL/min/1.73m2 Mildly decreased* 60 - 89 mL/min/1.73m2 Mildly to moderately decreased 45 - 59 mL/min/1.73m2 Moderately to severely decreased 30 - 44 mL/min/1.73m2 Severely decreased 15 - 29 mL/min/1.73m2 Kidney Failure < 15 mL/min/1.73m2 *Relative to young adult level Estimated glomerular filtration rate is determined by the 2020 CKD-EPI equation recommended by the National Kidney Foundation (A Unifying Approach to GFR Estimation: Recommendations of the NKF-ASK Task Force on Reassessing the Inclusion of Race in Diagnosing Kidney Disease, JASN 2020). The CKD-EPI equation should not be used for patients with unstable renal function and has not been validated in children and those over 70. Current interpretive data was last reviewed 2021. Blood 08/20/2024 11:0 3 AM COMBINE OPERATOR 08/20/2024 11:14 AM COMBINE OPERATOR Navi Baker MD LAB BLOOD ORDERABLES Fi nal Result Performing Organization Address City/[facility] Co de Phone Number BASHIR TINAJERO [phone] [place] [address] * (ABNORMAL) Hemoglobin A1c (08/20/2024 11:03 AM COMBINE OPERATOR) Hgb A1C 6.0(H) 4.0 - 5.6 % Estimated Average Glucose 126 mg/dL BASHIR TINAJERO Comment: The ADA recommends reporting an estimated Average Glucose (eAG) with all Hemoglobin A1c results using the equation derived from a study of 507 normal and diabetic adults. Minority populations were underrepresented and children were not included. (Diabetes Care 31:7013-5944, 2008). The eAG is not equivalent to a fasting glucose. Blood 08/20/2024 11:0 3 AM COMBINE OPERATOR 08/20/2024 11:13 AM COMBINE OPERATOR Nazia Linares NP LAB BLOOD ORDERABLES Final Res ult Performing Organization Address City/[facility]/ZIP Co de Phone Number BASHIR TINAJERO [phone] [place] [address] from Last 3 Months or Most Recently Relevant to Health Maintenance Additional Health Concerns Infection Onset Date Last Indicated MDR gram neg/ESBL Comment:ESBL E.coli urine 06/02/2024 06/02/2024 06/02/2024 Insurance MEDICARE [facility] MEDICARE [facility] TRADITIONAL BLUE TRADITIONAL OOS MEDICARE BLUE TRADITIONAL OOS Advance Directives For more information, please contact: [phone] * Full Code (Latest Code Status on File) Date Activated Date Inactivated Comments 09/09/2024 12:49 PM 09/10/2024 4:14 PM * Full Code Date Activated Date Inactivated Comments 11/11/2023 2:57 PM 11/12/2023 4:50 PM * Full Code Date Activated Date Inactivated Comments 06/25/2021 5:02 PM 06/26/2021 5:22 PM Care Teams Administrative Medical Director Relationship Specialty Start Date End Date Caesar Martin DO PCP - General 11/08/16 [place] [id number] [facility] [address] [place] [address] Consulting Physician Urology 09/10/24
--- OUTSIDE RECORDS SUMMARY | 2024-12-30 08:23 | XMS_ITS | Encounter Summary ---
Author Organization [facility] Address [address] [facility] [address] [place] [address] Care Team Providers Care Professor Of Business Name Role Phone Caesar Martin DO Primary Care Provider [phone] Navi Baker MD Unavailable [phone] Encounter Details Date Type Department Care Team (Late st Contact Info) Description 11/27/2016 Orders Only [facility] ProviderClaudia MD [address] [place] [address] Social History Tobacco Use Types Packs/Day Years Used Date Smoking Tobacco: Former Sex and Gender Information Value Date Recorded Sex Assigned at Male 11/11/2023 9:13 AM CDT Legal Sex Male 2:05 AM SUPERVISOR CYTOLOGY Gender Identity Not on file Sexual Orientation Not on file documented as of this encounter Plan of Treatment Not on file documented as of this encounter Procedures Procedure Name Priority Date/Time Associated Diagnosis Comments CARDIOLOGY REPORT 11/27/2016 documented in this encounter Results * CARDIOLOGY REPORT (11/27/2016) Anatomical Region Laterality Modality Other Narrative 11/27/2016 Ordered by an unspecified provider. Historical Provider [facility] SHERRI CASILLAS Final Result documented in this encounter Visit Diagnoses Not on filedocumented in this encounter Additional Health Concerns Infection Onset Date Last Indicated Resolved Time MDR gram neg/ESBL Comment:ESBL E.coli urine 06/02/2024 06/02/2024 06/02/2024 documented as of this encounter Care Teams Professor Of Business Relationship Specialty Start Date End Date Caesar Martin DO PCP - General 11/08/16 [place] [id number] [address] Consulting Physician Urology 09/10/24 documented as of this encounter
--- OUTSIDE RECORDS SUMMARY | 2024-12-30 08:23 | XMS_ITS ---
Author Organization [facility] [address] [place] [address] Care Team Providers Care Pony Edger Name Role Phone Caesar Martin DO Primary Care Provider [phone] Navi Baker MD Unavailable [phone] Active Problems Problem Noted Date Diagnosed Date DREW (stress urinary incontinence), male 09/18/19 ED (erectile dysfunction) 09/09/2024 Type 2 diabetes mellitus without complication Obesity 06/30/2024 Chronic obstructive lung disease 06/30/2024 Chronic kidney disease 06/30/2024 Anemia 06/30/2024 Benign essential hypertension 06/30/2024 Other male erectile dysfunction 06/29/2024 S/P shoulder replacement, right 11/11/2023 Osteoarthritis of glenohumeral joint, right 09/11 Prostate cancer 12/22/2020 Overview (12/22/2020): Added automatically from request for surgery [id number] H/O endoscopic sinus surgery 01/05/2018 Chronic rhinosinusitis 01/05/2018 Gastro-esophageal reflux disease without esophag itis 02/09/2013 Asthma 02/09/2013 Overview (06/30/2024): Converted unresolved ICD9, potential mismatch. Nasal polyp 08/28/2012 Current Treatment and Therapy Plans No current plan information found. Past Treatment and Therapy Plans No past plan information found. Lifetime Dose Tracking * Chemical Lifetime Dose Automatic Entry Manual Entr y DLP 217 mGycm 217 mGycm 0 mGycm
--- OUTSIDE RECORDS SUMMARY | 2024-12-30 08:23 | XMS_ITS | Referral Summary ---
Author Organization [facility] [place] [address] [place] [id number] Care Team Providers Care Utility Aircrewman Name Role Phone Caesar Martin DO Primary Care Provider [phone] Navi Baker MD Unavailable [phone] Encounters Date Type Department Care Team Description 12/27/2024 11:03 AM CDT - 12/27/2024 11:59 PM CDT Hospital Encounter [facility] [address] [place] [id number] Status post total shoulder arthroplasty, right Discharge Disposition: Discharge to home or self care 12/27/2024 11:00 AM CDT Office Visit [facility] [address] [place] [address] 2nd [address] [place] [address] Alfredo Rao MD Status post total shoulder arthroplasty, right (Primary Dx) 10/12/2024 8:20 AM CDT Office Visit [facility] [address] [place] [address] Medical Office Building [address] [place] [address] Navi Baker MD S/P insertion of penile implant (Primary Dx); History of prostate cancer 09/29/2024 8:20 AM CDT Office Visit [facility] [address] [place] [address] Medical Office Building [address] [place] [phone] Navi Baker MD S/P insertion of penile implant (Primary Dx) from Last 3 Months Allergies Active Allergy Reactions Criticality Noted Date Comments Penicillins Hives Medium Medications [id number]-gcj-VG-Ca-Fe- lycopen-lutein 0.4-162-18 mg tabletIndication s:Mineral Deficiency Prevention [...] 1 tablet (100 mg total) by mouth shaping machine tender before breakfast Active carvediloL (COREG) 25 mg tabletIndication s:hypertension Take 0.5 tablets (12.5 mg total) by mouth 2 (two) times a day Active amLODIPine (NORVASC) 10 mg tabletIndication s:hypertension Take 1 tablet (10 mg total) by mouth shaping machine tender before breakfast Active docosahexaenoic acid/epa (FISH OIL ORAL) Take 1 capsule by mouth 3 (three) times a week 2000mg 600mg Take on Friday, Friday, Friday Active cetirizine (ZyrTEC) 10 mg tabletIndication s:Seasonal Allergic Rhinitis Take 1 tablet (10 mg total) by mouth shaping machine tender before breakfast Active Trelegy Ellipta 100-62.5-25 mcg inhalerIndicatio ns:Bronchospasm Prevention with COPD Inhale 1 puff shaping machine tender before breakfast Active rosuvastatin (CRESTOR) 40 mg tabletIndication s:hyperlipidemia Take 0.5 tablets (20 mg total) by mouth nightly Active Ozempic 1 mg/dose (4 mg/3 mL) pen injector injectionIndicat ions:type 2 diabetes mellitus,Friday' Inject 1 mg under the skin every 7 days Mondays 4 Active cholecalciferol (VITAMIN D-3) 5,000 unit tabletIndication s:Vitamin D Deficiency Take 1 tablet (5,000 Units total) by mouth every morning Active prasterone, dhea, 25 mg tabletIndication s:supplement Take 1 tablet by mouth shaping machine tender before breakfast Active metFORMIN (GLUCOPHAGE) 500 mg tablet Take 1 tablet (500 mg total) by mouth 2 (two) times a day with meals Active acetaminophen (TYLENOL) 500 mg tablet Take 2 tablets (1,000 mg total) by mouth every 6 (six) hours 60 tablet 1 Active vitamin B complex capsule Take 1 [...] (12/22/2020): Added automatically from request for surgery [id number] H/O endoscopic sinus surgery 01/05/2018 Chronic rhinosinusitis 01/05/2018 Gastro-esophageal reflux disease without esophag itis 02/09/2013 Asthma 02/09/2013 Overview (06/30/2024): Converted unresolved ICD9, potential mismatch. Nasal polyp 08/28/2012 Social History Tobacco Use Types Packs/Day Years [...] AM CDT Legal Sex Male 2:05 AM TAILOR FITTER Gender Identity Not on file Sexual Orientation Not on file Last Filed Vital Signs Vital Sign Reading Time Taken Comments Blood Pressure 118/60 09/10/2024 7:00 AM TAILOR FITTER Pulse 70 09/10/2024 7:00 AM TAILOR FITTER Temperature 36.5 C (97.7 F) 09/10/2024 7:00 AM TAILOR FITTER Respiratory Rate 20 09/10/2024 7:00 AM TAILOR FITTER Oxygen Saturation 95% 09/10/2024 10:27 AM TAILOR FITTER Inhaled Oxygen Concentration - - Weight 81.2 kg (179 lb) 09/09/2024 6:30 AM TAILOR FITTER Height 175.3 cm (5' 9) 09/09/2024 6:30 AM TAILOR FITTER Body Mass Index 26.43 09/09/2024 6:30 AM TAILOR FITTER Plan of Treatment Not on file Medical Devices Implanted Type Area Photo Lab Manager Device Identifier Shelf Expiration Date Model / Serial / Lot [employer] Simplex P Radiopaque Full Dose Cement Bone Sterile 6191-1-010 - [id number] Implanted:Qty: 1 on 11/11/2023 at [facility] Right: Shoulder [employer] 08/13/2025 6191-1-010 / / [id number] [employer] Humeral [place] Shoulder Sidus [id number] - [id number] Implanted:Qty: 1 on 11/11/2023 at [facility] Right: Shoulder [employer] 05/08/2032 [id number] / / [id number] [employer] Trion Post Modular Component Glenoid Sterile Latex Free [id number] - [id number] Implanted:Qty: 1 on 11/11/2023 at [facility] Right: Shoulder [employer] 06/13/2033 [id number] / / [id number] [employer] Trion 3 Peg Modular Shoulder 5 Component Glenoid Sterile Latex [id number] - [id number] Implanted:Qty: 1 on 11/11/2023 at [facility] Right: Shoulder [employer] 09/15/2028 [id number] / / [id number] [employer] Sidus Od46 Mm H16 Mm Stem Free Shoulder Head Humeral Sterile Latex Free [id number] - [id number] Implanted:Qty: 1 on 11/11/2023 at [facility] Right: Shoulder [employer] 10/24/2032 [id number] / / [id number] [employer] Robert Kit Inflatable Penile Prosthesis Accessory Ams 700 Sterile [id number] - [id number] Implanted:Qty: 1 on 09/09/2024 by Navi Baker MD at [facility] Bilateral: Penis [employer] 11/04/2028 [id number] / / [id number] [employer] Surgical Sling Advance Xp Incont Urinary [id number] - [id number] Implanted:Qty: 1 on 09/09/2024 by Navi Baker MD at [facility] N/A: Urinary Bladder [employer] [id number] 03/14/2026 [id number] / / [id number] [employer] Ams Spectra 1.5cm Concealable Rear Tip Technology Coordinator Snapcone [id number] - [id number] Implanted:Qty: 1 on 09/09/2024 by Navi Baker MD at [facility] Bilateral: Penis [employer] [id number] 09/08/2028 [id number] / / [id number] [employer] Ams 700 Ms Pump Preconnect Inflatable Heartwell Prosthesis 65ml [id number] - [id number] Implanted:Qty: 1 on 09/09/2024 by Navi Baker MD at [facility] Bilateral: Abdomen [employer] [id number] 06/24/2026 [id number] / / [id number] [employer] Robert Prosthesis Penile 18cm Ams 700 Lgx Infpb Tenacio Timber Cutter Inhbzn [id number] - [id number] Implanted:Qty: 1 on 09/09/2024 by Navi Baker MD at [facility] Bilateral: Penis [employer] [id number] 06/15/2026 [id number] / / [id number] Procedures Procedure Name Priority Date/Time Associated Diagnosis Comments XR SHOULDER RIGHT 2 OR MORE VIEWS Schedule Routine, Read Routine (OP Routine) 12/27/2024 11:08 AM CDT Status post total shoulder arthroplasty, right EGFR Routine 08/20/2024 11:03 AM TAILOR FITTER Other male erectile dysfunction HEMOGLOBIN A1C Routine 08/20/2024 11:03 AM TAILOR FITTER Type 2 diabetes mellitus without complication, unspecified whether intermediate insulin use (HCC) from Last 3 Months [...] Mild acromioclavicular joint osteoarthritis. Procedure Note Andrzej Laird DO - 12/27/2024 EXAMINATION: XR SHOULDER RIGHT [...] Result * (ABNORMAL) eGFR (08/20/2024 11:03 AM TAILOR FITTER) eGFR 52(L) >=60 mL/min/1. 73 m2 Comment: [...] reviewed 2021. Blood 08/20/2024 11:0 3 AM TAILOR FITTER 08/20/2024 11:14 AM TAILOR FITTER Navi Baker MD LAB BLOOD ORDERABLES Fi nal Result BASHIR TINAJERO [id number] [address] [place] [address] * (ABNORMAL) Hemoglobin A1c (08/20/2024 11:03 AM TAILOR FITTER) Hgb A1C 6.0(H) 4.0 - 5.6 % Estimated Average Glucose 126 mg/dL BASHIR TINAJERO Comment: The ADA recommends reporting an estimated Average Glucose (eAG) with all Hemoglobin A1c results using the equation derived from a study of 507 normal and diabetic adults. Minority populations were underrepresented and children were not included. (Diabetes Care 31:3265-4634, 2008). The eAG is not equivalent to a fasting glucose. Blood 08/20/2024 11:0 3 AM TAILOR FITTER 08/20/2024 11:13 AM TAILOR FITTER us Nazia Linares NP LAB BLOOD ORDERABLES Final Res ult BASHIR TINAJERO [id number] [address] [place] [address] from Last 3 Months or Most Recently Relevant to Health Maintenance Additional Health Concerns Infection Onset Date Last Indicated MDR gram neg/ESBL Comment:ESBL E.coli urine 06/02/2024 06/02/2024 06/02/2024 Insurance MEDICARE [facility] MEDICARE [facility] TRADITIONAL BLUE TRADITIONAL OOS MEDICARE BLUE TRADITIONAL OOS Advance Directives For more information, please contact: [phone] * Full Code (Latest Code Status on File) Date Activated Date Inactivated Comments 09/09/2024 12:49 PM 09/10/2024 4:14 PM * Full Code Date Activated Date Inactivated Comments 11/11/2023 2:57 PM 11/12/2023 4:50 PM * Full Code Date Activated Date Inactivated Comments 06/25/2021 5:02 PM 06/26/2021 5:22 PM Care Teams Utility Aircrewman Relationship Specialty Start Date End Date Caesar Martin DO PCP - General 11/08/16 [place] [id number] [facility] [address] [place] [address] Consulting Physician Urology 09/10/24
--- OUTSIDE RECORDS SUMMARY | 2024-12-30 08:23 | XMS_ITS | Continuity of Care Document ---
Author Name [facility] Organization [facility] Care Team Providers Care Indirect Fire Infantryman Name Role Phone [facility] Unavailable Unavailable Problems Combined list of problems from [facility] and [facility] facilities. It does not include entries that were removed or entered in error. Problem Status Onset Date Problem Type Date of Resolution Comments Source Anemia ([facility] [id number]) Active Condition [facility] Benign essential hypertension Active Condition [facility] Chronic kidney disease Active Condition [facility] Chronic obstructive lung disease Active Condition [facility] Exposure to potentially hazardous substance Active Condition [facility] Hyperlipidemia Active Condition [facility] Malignant tumor of prostate Active Condition [facility] Obesity ([facility] [id number]) Active Condition [facility] Type 2 diabetes mellitus without complication Active Condition [facility] Asthma ([facility] [id number]) Inactive Condition 02/20/2022 [facility] Elevated PSA Inactive Condition 02/20/2022 [facility] Diagnosis: ICD-10-CM E11.9 Type 2 diabetes mellitus without complications Active Diagnosis [facility] Medications Combined list of outpatient medications from [facility] and [facility] facilities.Medications provided include 1) outpatient medications from the last 15 months, and 2) patient-reported medications. Medication Details Route Status Patient Instructions Prescription Expires Prescription Number Last Dispense Date Ordering Provider Order Date Order Qty Source ALBUTEROL SO4 90MCG/ACTUA T (CFC-F) INHL,ORAL,8 .5GM INHALE 2 PUFFS BY ORAL INHALATI ON FOUR TIMES A DAY NEEDED FOR BREATHIN G. SHAKE WELL. RINSE MOUTHPIE CE FREQUENT LY TO PREVENT CLOGGING . RESPIR ATORY (INHAL ATION) ACTIVE 01/17/2025 [id number] 5 MARCY SILVA SA 2024 3 [facility] ALBUTEROL SO4 90MCG/ACTUA T (CFC-F) INHL,ORAL,8 .5GM INHALE 2 PUFFS BY ORAL INHALATI ON FOUR TIMES A DAY NEEDED FOR BREATHIN G. SHAKE WELL. RINSE MOUTHPIE CE FREQUENT LY TO PREVENT CLOGGING . RESPIR ATORY (INHAL ATION) DISCONT INUED 09/10/2024 [id number] 5 MARCY SILVA SA 2023 1 [facility] AMLODIPINE BESYLATE 10MG TAB TAKE ONE TABLET BY MOUTH ONCE A DAY FOR HEART/BL OOD PRESSURE ORAL ACTIVE 05/07/2025 [id number] 5 ANDREAS GOLDMAN [address] [place] [address] [facility] AMLODIPINE BESYLATE 10MG TAB TAKE ONE TABLET BY MOUTH ONCE A DAY FOR HEART/BL OOD PRESSURE ORAL DISCONT INUED 05/08/2024 [id number] 4 ANDREAS GOLDMAN [address] [place] [address] [facility] CARVEDILOL 25MG TAB TAKE ONE-HALF TABLET BY MOUTH TWICE A DAY FOR HEART. TAKE WITH FOOD. ORAL ACTIVE 01/07/2025 [id number] 5 MACRY SILVA SA [address] [place] [address] DIVISIO N CARVEDILOL 25MG TAB TAKE ONE-HALF TABLET BY MOUTH TWICE A DAY FOR HEART. TAKE WITH FOOD. ORAL DISCONT INUED 03/24/2024 [id number] 4 MARCY SILVA SA [address] [place] [address] DIVISIO Kristin CHOLECALCIF OSCAR (LOW DOSE VIT D) - (OTC) TAB TAKE 1 TAB (DOSE UNKNOWN) BY MOUTH ONCE A DAY ORAL ACTIVE MARCY SILVA SA 2022 [facility] FLUTICASONE 100MCG/EARLENE NTEROL 25MCG INHL,ORAL,3 0D INHALE 1 PUFF ORAL INHALATI ON ONCE A DAY RESPIR ATORY (INHAL ATION) ACTIVE ME KRISTIN RODRIGUEZISSA Tramaine 2018 [facility] [place] POTASSIUM 100MG TAB TAKE ONE TABLET BY MOUTH ONCE A DAY TO LOWER BLOOD PRESSURE ORAL ACTIVE 05/07/2025 [id number] 5 ANDREAS GOLDMAN 2023 90 [facility] [place] POTASSIUM 100MG TAB TAKE ONE TABLET BY MOUTH ONCE A DAY TO LOWER BLOOD PRESSURE ORAL DISCONT INUED 05/08/2024 [id number] 4 ANDREAS GOLDMAN 2022 90 [facility] METFORMIN HCL 500MG 24HR TAB,SA TAKE ONE TABLET BY MOUTH TWO TIMES A DAY BEFORE MEALS FOR BLOOD SUGAR CONTROL. TAKE WITH FOOD. AVOID ALCOHOL. DISCONTI NUE BEFORE GETTING XRAY DYE. ORAL ACTIVE 09/24/2025 [id number] 5 ANDREAS GOLDMAN 2024 180 [facility] METFORMIN HCL 500MG 24HR TAB,SA TAKE ONE TABLET BY MOUTH TWO TIMES A DAY BEFORE MEALS FOR BLOOD SUGAR CONTROL. TAKE WITH FOOD. AVOID ALCOHOL. DISCONTI NUE BEFORE GETTING XRAY DYE. ORAL DISCONT INUED 10/22/2024 [id number] 5 ANDREAS GOLDMAN 2023 60 [facility] METFORMIN HCL 500MG 24HR TAB,SA TAKE ONE TABLET BY MOUTH TWO TIMES A DAY BEFORE MEALS FOR BLOOD SUGAR CONTROL. TAKE WITH FOOD. AVOID ALCOHOL. DISCONTI NUE BEFORE GETTING XRAY DYE. NEW FORMULAT ION. CALL YOUR MEDICAL OFFICE, IF YOU CANNOT TOLERATE THIS MEDICATI ON AFTER TWO WEEKS OF STARTING . FOR BLOOD SUGAR CONTROL. TAKE WITH FOOD. AVOID ALCOHOL. DISCONTI NUE BEFORE GETTING XRAY DYE. NEW FORMULAT ION. CALL YOUR MEDICAL OFFICE, IF YOU CANNOT TOLERATE THIS MEDICATI ON AFTER TWO WEEKS OF STARTING . ORAL DISCONT INUED 10/22/2024 [id number] 4 ANDREAS GOLDMAN 2023 180 [facility] MULTIVITAMI NS CAP/TAB TAKE ONE TABLET BY MOUTH ONCE A DAY ORAL ACTIVE MARCY SILVA SA 2022 [facility] ROSUVASTATI N CA 40MG TAB TAKE ONE-HALF TABLET BY MOUTH EVERY EVENING TO LOWER CHOLESTE ROL (REPORT ANY MUSCLE PAIN OR WEAKNESS ) ORAL ACTIVE 11/23/2025 [id number] 5 KINGMARCY SA D 2024 45 [facility] ROSUVASTATI N CA 40MG TAB TAKE ONE-HALF TABLET BY MOUTH EVERY EVENING TO LOWER CHOLESTE ROL (REPORT ANY MUSCLE PAIN OR WEAKNESS ) ORAL DISCONT INUED 12/30/2024 [id number] 5 KINGMARCY SA D 2023 45 [facility] Allergies, Adverse Reactions, Alerts Combined list of allergies from Department of Defense and Veterans Affairs facilities. It does not include entries that were removed or entered in error. Substance Category Reaction Severity Reaction type Status Date Reported Comments Source PENICILLIN Propensity to adverse reactions to drug (finding) Urticaria active 8 [facility] Immunizations Combined list of available immunizations from the Department of [facility] and Veterans Affairs facilities. Immunization Series Date Given Administered By Site Reaction Lot Number CVX Code Drug Crew Foreman Status Comments Source INFLUENZA, HIGH-DOSE, TRIVALENT, PF 2023 ANN RABAGO RIGHT DELTO ID [id number] 135 complet ed [facility] AT [facility] COVID-19 (PFIZER), MRNA, LNP-S, BIVALENT BOOSTER, PF, 30 MCG/0.3 ML DOSE 1 2021 300 complet ed HISTORICA L INFORMATI ON - FROM OTHER PROVIDER, [facility] N INFLUENZA, UNSPECIFIED FORMULATION 2021 88 complet ed HISTORICA L INFORMATI ON - FROM OTHER PROVIDER, [facility] N PNEUMOCOCCAL CONJUGATE PCV20, POLYSACCHARID E [id number] CONJUGATE, ADJUVANT, PF 2021 216 complet ed [facility] N COVID-19 (Optisense), MRNA, LNP-S, PF, 30 MCG/0.3 ML DOSE 2 2021 208 complet ed HISTORICA L INFORMATI ON - FROM OTHER PROVIDER, [facility] COVID-19 (Optisense), MRNA, LNP-S, PF, 30 MCG/0.3 ML DOSE 3 2020 208 complet ed HISTORICA L INFORMATI ON - FROM OTHER PROVIDER, [facility] COVID-19 (PFIZER), MRNA, LNP-S, PF, 30 MCG/0.3 ML DOSE 1 2020 208 complet ed HISTORICA L INFORMATI ON - FROM OTHER PROVIDER, [facility] INFLUENZA, TRIVALENT, ADJUVANTED 2018 168 complet ed HISTORICA L INFORMATI ON - FROM OTHER PROVIDER, Partner: [facility]. Administe red by: ZULEMA DAWKINS (BJO=[phone]). Partner 8 Lot#: [id number] Mfr: SEQIRUS; Dosage: 0.5 [facility] INFLUENZA, UNSPECIFIED FORMULATION 2018 88 complet ed [facility] ZOSTER RECOMBINANT 1 2018 187 complet ed [facility] INFLUENZA, UNSPECIFIED FORMULATION 2017 88 complet ed [facility] TDAP 2017 115 complet ed Right Deltoid [facility] Results Combined list of recent chemistry, hematology and other laboratory results from Department of Defense and Veterans Affairs, ranging from 15 months to all on record, depending upon the facility. Order Name Results Value Reference Range Date Interpretation Specimen Comments Source LIPID PANEL (STL) CHOLESTEROL [MASS/VOLUME] IN SERUM OR PLASMA 122 mg/dL 0 - 200 05/05 Specimen Type: PLASMA Comment: No hemolysis noted. Ordering Provider: Christi GOLDMAN Report Released Date/Time: May 08, 2023 11:39 AM Reporting Lab: [facility] [address] [facility] [address] Performing Lab: [facility] [address] [facility] [address] [facility] LIPID PANEL (STL) TRIGLYCERIDE [MASS/VOLUME] IN SERUM OR PLASMA 110 mg/dL 0 - 150 05/05 Specimen Type: PLASMA Comment: No hemolysis noted. Ordering Provider: Christi GOLDMAN Report Released Date/Time: May 08, 2023 11:39 AM Reporting Lab: [facility] [address] [facility] [address] Performing Lab: [facility] [address] [place] [phone] [facility] LIPID PANEL (STL) CHOLESTEROL IN LDL [MASS/VOLUME] IN SERUM OR PLASMA BY CALCULATION 69 mg/dL 05/05 Specimen Type: PLASMA Comment: No hemolysis noted. Ordering Provider: Christi GOLDMAN Report Released Date/Time: May 08, 2023 11:39 AM Reporting Lab: [facility] [address] [place] [phone] Performing Lab: [address] [address] [facility] LIPID PANEL (STL) CHOLESTEROL IN HDL [MASS/VOLUME] IN SERUM OR PLASMA 31 mg/dL 40 05/05 L Specimen Type: PLASMA Comment: No hemolysis noted. Ordering Provider: Christi GOLDMAN Report Released Date/Time: May 08, 2023 11:39 AM Reporting Lab: [facility] [address] [place] [phone] Performing Lab: [address] [address] [facility] IRON/TIBC PROFILE IRON BINDING CAPACITY [MASS/VOLUME] IN SERUM OR PLASMA 349 ug/dL 250 - 450 05/05 Specimen Type: SERUM Comment: No hemolysis noted. Ordering Provider: Christi GOLDMAN Report Released Date/Time: May 08, 2023 11:39 AM Reporting Lab: [facility] [address] [place] [phone] Performing Lab: [facility] [address] [place] [phone] [facility] IRON/TIBC PROFILE TRANSFERRIN [MASS/VOLUME] IN SERUM OR PLASMA 279 mg/dL 163 - 344 05/05 Specimen Type: SERUM Comment: No hemolysis noted. Ordering Provider: Christi GOLDMAN Report Released Date/Time: May 08, 2023 11:39 AM Reporting Lab: [facility] [address] [place] [phone] Performing Lab: [facility] [address] [place] [phone] [facility] IRON/TIBC PROFILE IRON SATURATION [MASS FRACTION] IN SERUM OR PLASMA 26 20 - 50 05/05 Specimen Type: SERUM Comment: No hemolysis noted. Ordering Provider: Christi GOLDMAN Report Released Date/Time: May 08, 2023 11:39 AM Reporting Lab: [address] [address] Performing Lab: [address] [address] [facility] IRON/TIBC PROFILE IRON [MASS/VOLUME] IN SERUM OR PLASMA 90 ug/dL 65 - 175 05/05 Specimen Type: SERUM Comment: No hemolysis noted. Ordering Provider: Christi GOLDMAN Report Released Date/Time: May 08, 2023 11:39 AM Reporting Lab: [address] [address] Performing Lab: [address] [address] [facility] CBC LEUKOCYTES [#/VOLUME] IN BLOOD BY AUTOMATED COUNT 8.6 10*3/u L 3.6 - 11.2 05/05 Specimen Type: BLOOD No comment entered. Ordering Provider: Christi GOLDMAN Report Released Date/Time: May 08, 2023 11:39 AM Reporting Lab: [facility] [address] [place] [phone] Performing Lab: [address] [address] [facility] CBC ERYTHROCYTES [#/VOLUME] IN BLOOD BY AUTOMATED COUNT 3.98 10*6/u L 4.10 - 5.70 05/05 L Specimen Type: BLOOD No comment entered. Ordering Provider: Christi GOLDMAN Report Released Date/Time: May 08, 2023 11:39 AM Reporting Lab: [address] [address] Performing Lab: [address] [address] [facility] CBC HEMOGLOBIN [MASS/VOLUME] IN BLOOD 12.5 g/dL 13.1 - 16.8 05/05 L Specimen Type: BLOOD No comment entered. Ordering Provider: Christi GOLDMAN Report Released Date/Time: May 08, 2023 11:39 AM Reporting Lab: [address] [address] Performing Lab: [address] [address] [facility] CBC HEMATOCRIT [VOLUME FRACTION] OF BLOOD 36.6 38.2 - 48.4 05/05 L Specimen Type: BLOOD No comment entered. Ordering Provider: Christi GOLDMAN Report Released Date/Time: May 08, 2023 11:39 AM Reporting Lab: [address] [address] Performing Lab: [address] [address] [facility] CBC MCV [ENTITIC VOLUME] BY AUTOMATED COUNT 92.0 fL 80.0 - 100.0 05/05 Specimen Type: BLOOD No comment entered. Ordering Provider: Christi GOLDMAN Report Released Date/Time: May 08, 2023 11:39 AM Reporting Lab: [address] [address] Performing Lab: [address] [address] [facility] CBC MCH [ENTITIC MASS] BY AUTOMATED COUNT 31.4 pg 27.0 - 34.0 05/05 Specimen Type: BLOOD No comment entered. Ordering Provider: Christi GOLDMAN Report Released Date/Time: May 08, 2023 11:39 AM Reporting Lab: [address] [address] Performing Lab: [address] [phone] [facility] CBC MCHC [MASS/VOLUME] BY AUTOMATED COUNT 34.2 g/dL 33.0 - 36.0 05/05 Specimen Type: BLOOD No comment entered. Ordering Provider: Christi GOLDMAN Report Released Date/Time: May 08, 2023 11:39 AM Reporting Lab: [address] [address] Performing Lab: [address] [facility] CBC PLATELETS [#/VOLUME] IN BLOOD BY AUTOMATED COUNT 209 10*3/u L 150 - 400 05/05 Specimen Type: BLOOD No comment entered. Ordering Provider: Christi GOLDMAN Report Released Date/Time: May 08, 2023 11:39 AM Reporting Lab: [place] [address] Performing Lab: [address] [facility] CBC PLATELET MEAN VOLUME [ENTITIC VOLUME] IN BLOOD BY AUTOMATED COUNT 10.0 fL 7.5 - 11.2 05/05 Specimen Type: BLOOD No comment entered. Ordering Provider: Christi GOLDMAN Report Released Date/Time: May 08, 2023 11:39 AM Reporting Lab: [place] [address] Performing Lab: [address] [phone] [facility] CBC ERYTHROCYTE DISTRIBUTION WIDTH [RATIO] BY AUTOMATED COUNT 12.2 11.8 - 15.1 05/05 Specimen Type: BLOOD No comment entered. Ordering Provider: Christi GOLDMAN Report Released Date/Time: May 08, 2023 11:39 AM Reporting Lab: [place] [address] Performing Lab: [address] [phone] [facility] CBC LYMPHOCYTES/1 00 LEUKOCYTES IN BLOOD BY AUTOMATED COUNT 11 05/05 Specimen Type: BLOOD No comment entered. Ordering Provider: Christi GOLDMAN Report Released Date/Time: May 08, 2023 11:39 AM Reporting Lab: [facility] [address] [facility] [address] Performing Lab: [facility] [address] [facility] [phone] [facility] CBC MONOCYTES/100 LEUKOCYTES IN BLOOD BY AUTOMATED COUNT 9 05/05 Specimen Type: BLOOD No comment entered. Ordering Provider: Christi GOLDMAN Report Released Date/Time: May 08, 2023 11:39 AM Reporting Lab: [facility] [address] [facility] [address] Performing Lab: [facility] [address] [facility] [address] [facility] CBC NEUTROPHILS/1 00 LEUKOCYTES IN BLOOD BY AUTOMATED COUNT 75 05/05 Specimen Type: BLOOD No comment entered. Ordering Provider: Christi GOLDMAN Report Released Date/Time: May 08, 2023 11:39 AM Reporting Lab: [facility] [address] [facility] [address] Performing Lab: [facility] [address] [facility] [address] [facility] CBC EOSINOPHILS/1 00 LEUKOCYTES IN BLOOD BY AUTOMATED COUNT 5 05/05 Specimen Type: BLOOD No comment entered. Ordering Provider: Christi GOLDMAN Report Released Date/Time: May 08, 2023 11:39 AM Reporting Lab: [facility] [address] [facility] [address] Performing Lab: [facility] [address] [facility] [address] [facility] CBC BASOPHILS/100 LEUKOCYTES IN BLOOD BY AUTOMATED COUNT 1 05/05 Specimen Type: BLOOD No comment entered. Ordering Provider: Christi GOLDMAN Report Released Date/Time: May 08, 2023 11:39 AM Reporting Lab: [facility] [address] [facility] [address] Performing Lab: [address] [address] [facility] CBC LYMPHOCYTES [#/VOLUME] IN BLOOD BY AUTOMATED COUNT 0.94 10*3/u L 0.77 - 4.50 05/05 Specimen Type: BLOOD No comment entered. Ordering Provider: Christi GOLDMAN Report Released Date/Time: May 08, 2023 11:39 AM Reporting Lab: [place] [address] Performing Lab: [address] [phone] [facility] CBC MONOCYTES [#/VOLUME] IN BLOOD BY AUTOMATED COUNT 0.73 10*3/u L 0.19 - 0.80 05/05 Specimen Type: BLOOD No comment entered. Ordering Provider: Christi GOLDMAN Report Released Date/Time: May 08, 2023 11:39 AM Reporting Lab: [place] [phone] Performing Lab: [address] [address] [facility] CBC NEUTROPHILS [#/VOLUME] IN BLOOD BY AUTOMATED COUNT 6.44 10*3/u L 2.10 - 8.00 05/05 Specimen Type: BLOOD No comment entered. Ordering Provider: Christi GOLDAMN Report Released Date/Time: May 08, 2023 11:39 AM Reporting Lab: [place] [phone] Performing Lab: [address] [address] [facility] CBC EOSINOPHILS [#/VOLUME] IN BLOOD BY AUTOMATED COUNT 0.39 10*3/u L 0.00 - 0.60 05/05 Specimen Type: BLOOD No comment entered. Ordering Provider: Christi GOLDMAN Report Released Date/Time: May 08, 2023 11:39 AM Reporting Lab: [place] [address] Performing Lab: [facility] [address] [place] [phone] [facility] CBC BASOPHILS [#/VOLUME] IN BLOOD BY AUTOMATED COUNT 0.05 10*3/u L 0.00 - 0.20 05/05 Specimen Type: BLOOD No comment entered. Ordering Provider: Christi GOLDMAN Report Released Date/Time: May 08, 2023 11:39 AM Reporting Lab: [address] [address] Performing Lab: [address] [address] [facility] HGA1C HEMOGLOBIN A1C/HEMOGLOBI N.TOTAL IN BLOOD 5.6 4.0 - 6.0 05/05 Specimen Type: BLOOD No comment entered. Ordering Provider: Christi GOLDMAN Report Released Date/Time: May 08, 2023 11:39 AM Reporting Lab: [address] [address] Performing Lab: [address] [address] [facility] B12 COBALAMIN (VITAMIN B12) [MASS/VOLUME] IN SERUM OR PLASMA 702 pg/mL 213 - 816 05/05 Specimen Type: SERUM No comment entered. Ordering Provider: Christi GOLDMAN Report Released Date/Time: May 08, 2023 11:39 AM Reporting Lab: [address] [address] Performing Lab: [address] [address] [facility] FERRITIN FERRITIN [MASS/VOLUME] IN SERUM OR PLASMA 32.56 ng/mL 22 - 275 05/05 Specimen Type: SERUM No comment entered. Ordering Provider: Christi GOLDMAN Report Released Date/Time: May 08, 2023 11:39 AM Reporting Lab: [address] [address] Performing Lab: [address] [address] [facility] VITAMIN D, 25-HYDROXY 25-HYDROXYVIT DE ANDA D3 [MASS/VOLUME] IN SERUM OR PLASMA 89.8 ng/mL 30 - 96 05/05 Specimen Type: SERUM No comment entered. Ordering Provider: Christi GOLDMAN Report Released Date/Time: May 08, 2023 11:39 AM Reporting Lab: [address] [address] Performing Lab: [address] [phone] [place] [address] [facility] FOLATE (STL-MA) FOLATE [MASS/VOLUME] IN SERUM OR PLASMA 17.3 ng/mL 7 - 20 05/05 Specimen Type: SERUM No comment entered. Ordering Provider: Christi GOLDMAN Report Released Date/Time: May 08, 2023 11:39 AM Reporting Lab: [place] [address] Performing Lab: [address] [phone] [place] [address] [facility] TSH (MA-PB) THYROTROPIN [UNITS/VOLUME ] IN SERUM OR PLASMA 0.937 u[IU]/ mL 0.47 - 5 05/05 Specimen Type: SERUM Comment: No hemolysis noted. Ordering Provider: Christi GOLDMAN Report Released Date/Time: May 08, 2023 11:39 AM Reporting Lab: [address] [address] Performing Lab: [address] [phone] [place] [address] [facility] MICRAL/CRE AT PROFILE (STL) ALBUMIN [MASS/VOLUME] IN URINE 144.4 mg/L 05/05 Specimen Type: URINE No comment entered. Ordering Provider: Christi GOLDMAN Report Released Date/Time: May 08, 2023 11:39 AM Reporting Lab: [address] [address] Performing Lab: [address] [address] [facility] MICRAL/CRE AT PROFILE (STL) ALBUMIN/CREAT ININE [MASS RATIO] IN URINE 315 mg/g 0 - 29 05/05 H Specimen Type: URINE No comment entered. Ordering Provider: Christi GOLDMAN Report Released Date/Time: May 08, 2023 11:39 AM Reporting Lab: [facility] [address] [facility] [address] Performing Lab: [facility] [address] [facility] [address] [facility] MICRAL/CRE AT PROFILE (STL) CREATININE [MASS/VOLUME] IN URINE 45.9 mg/dL 63 - 166 05/05 L Specimen Type: URINE No comment entered. Ordering Provider: Christi GOLDMAN Report Released Date/Time: May 08, 2023 11:39 AM Reporting Lab: [facility] [address] [facility] [address] Performing Lab: [facility] [address] [facility] [address] [facility] Vital Signs Combined list of inpatient and outpatient Vital Signs from Department of Defense and Veterans Affairs, ranging from 12 months to all on record, depending upon the facility. Vital Sign Value Date Comments Source SYSTOLIC BLOOD PRESSURE 131 05/06/2024 10:30:27 [facility] DIASTOLIC BLOOD PRESSURE 70 05/06/2024 10:30:27 [facility] PULSE OXIMETRY 96 05/06/2024 10:30:27 [facility] WEIGHT 183 05/06/2024 10:30:27 [facility] BMI 27 kg/m2 05/06/2024 10:30:27 [facility] PAIN 0 05/06/2024 10:30:27 [facility] TEMPERATURE 97.9 05/06/2024 10:30:27 [facility] PULSE 67 05/06/2024 10:30:27 [facility] RESPIRATION 18 05/06/2024 10:30:27 [facility] Encounters Combined list of: 1) Encounters from Department of Veterans Affairs facilities going backup to the last 18 months, not all VA inpatient encounters are included; 2) Encounters from the Department of [facility] facilities going backup to 280 months. Location Location Details Encounter Type Encounter Number Reason For Visit Attending Provider ADM Date DC Date Status Disposition Source [facility] Outpatient Encounter [id number] JAVON DIXON J 10/21 [facility] Outpatient Encounter [id number] 03/23 [facility] Outpatient Encounter [id number] GUIDO SCHWARZ O 05/05 [facility] Outpatient Encounter [id number] 05/06 [facility] OFF[facility] O/P EST MOD 30 MIN [id number] Diagnos is: ICD-10- CM E11.9 Type 2 diabete s mellitu s without complic ations JONES,Christi ODD 05/06 [facility] Outpatient Encounter [id number] 05/06 [facility] Social History Combined list of available smoking, tobacco, and other social history from [facility] and [facility] facilities. Social History Type Response Date Comment Sourc e Tobacco smoking status NHIS VA-TOBACCO QUIT 15 YRS OR MORE 05/06/2024 [facility] History of tobacco use VA-TOBACCO FORMER USER 05/06/2024 [facility] History of tobacco use VA-TOBACCO FORMER USER 05/08/2023 [facility] History of tobacco use VA-TOBACCO FORMER USER 02/20/2022 [facility] History of tobacco use VA-TOBACCO FORMER USER 03/09/2021 [facility] History of tobacco use VA-TOBACCO QUIT 1 5 YRS OR MORE 03/24/2019 [facility] History of tobacco use VA-TOBACCO QUIT 1 5 YRS OR MORE 07/01/2018 [facility] History of tobacco use QUIT TOBACCO >7 Y EARS AGO 02/27/2018 [facility] Plan of Care List of future care activities from [facility] facilities. Additional future care activities may be listed in the Assessment and Plan section. Date/Time Care Activity Care Activity Detail Facili ty 05/06/2025 AMBULATORY - MEDICINE AMBULATORY - MEDICI NE [facility]
[2024-12-30 19:45] LABS: Basophils Absolute Auto 0.1 K/mm3 (0.0-0.1); Basophils Percent Auto 0.8 % (0.2-1.2); Eosinophils Absolute Auto 0.4 K/mm3 (0-0.3); Eosinophils Percent Auto 4.1 % (0-4.4); Hematocrit 34.1 % (42.0-52.0); Immature Granulocyte Absolute 0.03 K/mm3 (0.00-0.031); Immature Granulocyte Percent A 0.3 % (0-0.5); Lymphocytes Absolute Auto 1.01 K/mm3 (0.9-3.2); Lymphocytes Percent Auto 11.5 % (18.3-44.2); Mean Corpuscular HGB Conc 32.3 g/dl (32-36); Mean Corpuscular Hemoglobin 28.9 pg (26-34); Mean Corpuscular Volume 89.5 fl (80-100); Mean Platelet Volume 9.7 fl (7.4-10.4); Monocytes Absolute Auto 0.7 K/mm3 (0.1-0.6); Neutrophils Absolute Auto 6.6 K/mm3 (1.3-6.7); Neutrophils Percent Auto 75.3 % (45.5-73.1); Platelet Count Result 260 k/mm3 (150-375); Red Blood Count 3.81 M/mm3 (4.6-6.20); Red Cell Distribution Width 13.6 % (11.5-14.5); White Blood Count 8.8 K/mm3 (4.5-10.0)
[2024-12-30 20:12] LABS: Creatinine Urine 53.5 mg/dL
[2024-12-30 20:21] LABS: Alanine Aminotransferase 11 U/L (6-50); Alkaline Phosphatase 68 U/L (38-126); Anion Gap 6 mmol/L (4-12); Aspartate Amino Transferase 22 U/L (17-59); Bilirubin,Total 1.1 mg/dL (0.2-1.3); Blood Urea Nitrogen 23 mg/dL (9-20); Calcium 9.8 mg/dL (8.4-10.2); Carbon Dioxide 27 mmol/L (22-30); Chloride 102 mmol/L (98-107); Estimated Glomerular Filt Rate 33; Glucose 112 mg/dL (65-110); Potassium 4.2 mmol/L (3.4-5.0); Sodium 135 mmol/L (137-145); Total Protein 6.9 g/dL (6.3-8.2)
[2024-12-30 20:35] LABS: MALB Creatinine Ratio 562.4 mg/g (0-30); Microalbumin Urine Random 300.9 mg/L (0-16.7)
[2024-12-30 20:58] LABS: Prostate Specific Antigen 0.1 ng/mL (< OR = 4.0)
[2024-12-30 21:04] LABS: Hemoglobin A1C 5.8 % (<5.7)
== END 2024-12-30 08:18 | disposition home or self-care (01) ==
PROVIDERS: PCP Internal Medicine; Visit Provider Internal Medicine
DX: E11.22 Type 2 diabetes mellitus with diabetic chronic kidney disease (principal); N18.31 Chronic kidney disease, stage 3a; D69.6 Thrombocytopenia, unspecified; C61 Malignant neoplasm of prostate
CPT/HCPCS: 36415; 80053; 82043; 83036; 84153; 85025

== ENCOUNTER 2025-01-03 09:25 | Outpatient (CLI) | payer MEDICARE, BC, SELFPAY ==
[2025-01-03 12:49] LABS: Add Urine Microscopic? YES; Appearance Urine Cloudy (Clear); Bacteria Urine 4+ /hpf; Bilirubin Urine Negative (Negative); Blood Urine Negative (Negative); Color Urine Yellow (Yellow); Glucose Urine UA Negative (Negative); Ketones Urine Negative (Negative); Leukocyte Esterase Ur 3+ LEU/UL (Negative); Nitrate Urine Negative (Negative); Non Pathogenic Casts 0-2; Protein Urine 2+ mg/dL (Negative); RBC Urine 0-2 /hpf (0-2); Specific Grav Ur 1.013 (1.001-1.035); Squamous Epithelial Cell Urine None Seen /hpf (Few); WBC Urine >100 /hpf (0-3); pH Urine 6.5 (5.0-9.0)
== END 2025-01-03 09:26 | disposition home or self-care (01) ==
PROVIDERS: PCP Internal Medicine; Visit Provider Internal Medicine
DX: N18.31 Chronic kidney disease, stage 3a (principal); R82.90 Unspecified abnormal findings in urine
CPT/HCPCS: 81001; 87086; 87186

== ENCOUNTER 2025-01-20 14:04 | Outpatient (CLI) | payer MEDICARE, BC, SELFPAY ==
--- OUTSIDE RECORDS SUMMARY | 2025-01-20 14:08 | XMS_ITS | Clinical Summary ---
Author Organization [facility] Gabriela Rodgers Address [address] [place] [address] Care Team Providers Care Associate Quality Engineer Name Role Phone Caesar Martin DO Primary [...] Comments Blood Pressure 131/70 08/19/2023 1:04 PM SPEAKER MOUNTER Pulse 72 08/19/2023 1:04 PM SPEAKER MOUNTER Temperature 36.3 C (97.3 F) 08/19/2023 1:04 PM SPEAKER MOUNTER Respiratory Rate 14 08/19/2023 1:04 PM SPEAKER MOUNTER Oxygen Saturation 94% 08/19/2023 1:04 PM SPEAKER MOUNTER Inhaled Oxygen Concentration - - Weight 92.1 kg (203 lb) 08/19/2023 1:04 PM SPEAKER MOUNTER Height 175.3 cm (5' 9) 02/27/2023 10:26 [...] ) (1 - 1-dose 75+ series) 09/27/2023 DIABETES HBA1C Q 6 MONTHS 08/11/20242023, 08/25/2023, 08/26/2022 DIABETES ANNUAL RETINAL EXAM 09/10/2024 09/11/2023 INFLUENZA VACCINE (#1) 2025 05/13/2019 DTAP/TDAP/TD VACCINES (2 - T d or Tdap) 03/23/2028 03/23/2018 Insurance MEDICARE PART A AND B BCBS SUPP Care Teams Associate Quality Engineer Relationship Specialty Start Date End Date Caesar Martin DO [address] [address] PCP - General Internal Medicine 02/27/23
--- OUTSIDE RECORDS SUMMARY | 2025-01-20 14:08 | XMS_ITS | Clinical Summary ---
Author Organization [facility] Jennifer torres Address [address] [place] [address] Phone Care Team Providers Care User Interface Artist Name Role Phone Unavailable Primary Care Provider [...]
--- OUTSIDE RECORDS SUMMARY | 2025-01-20 14:08 | XMS_ITS | Encounter Summary ---
Author Organization [facility] Address [address] [place] [address] Care Team Providers Care Public Aid Eligibility Assistant Name Role Phone Caesar Martin DO Primary Care Provider [phone] Navi Baker MD Unavailable [phone] Encounter Details Date Type Department Care Team (Late st Contact Info) Description 11/27/2016 Orders Only [facility] ProviderClaudia MD [address] [place] [address] Social History Tobacco Use Types Packs/Day Years Used Date Smoking Tobacco: Former Sex and Gender Information Value Date Recorded Sex Assigned at Male 11/11/2023 9:13 AM CDT Legal Sex Male 2:05 AM 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
--- OUTSIDE RECORDS SUMMARY | 2025-01-20 14:08 | XMS_ITS ---
Author Organization [facility] [address] [place] [address] Care Team Providers Care It Risk And Assurance Senior Manager Name Role Phone Caesar Martin DO Primary Care Provider [phone] Navi Baker MD Unavailable [phone] Active Problems Problem Noted Date Diagnosed Date [...] (12/22/2020): Added automatically from request for surgery [id number] H/O endoscopic sinus surgery 01/05/2018 Chronic rhinosinusitis [...]
--- OUTSIDE RECORDS SUMMARY | 2025-01-20 14:08 | XMS_ITS | Clinical Summary ---
Author Organization [facility] [address] [place] [address] Care Team Providers Care Auditor Tax Name Role Phone Caesar Martin DO Primary Care Provider [phone] Navi Baker MD Unavailable [phone] Allergies Active Allergy Reactions Criticality Noted Date Comments Penicillins Hives Medium Medications yt-kzw-IK-Ca-Fe- lycopen-lutein 0.4-162-18 mg tabletIndication s:Mineral Deficiency Prevention [...] 1 tablet (100 mg total) by mouth manager battery before breakfast Active carvediloL (COREG) 25 mg tabletIndication s:hypertension Take 0.5 tablets (12.5 mg total) by mouth 2 (two) times a day Active amLODIPine (NORVASC) 10 mg tabletIndication s:hypertension Take 1 tablet (10 mg total) by mouth manager battery before breakfast Active docosahexaenoic acid/epa (FISH OIL ORAL) Take 1 capsule by mouth 3 (three) times a week 2000mg 600mg Take on Friday, Friday, Friday Active cetirizine (ZyrTEC) 10 mg tabletIndication s:Seasonal Allergic Rhinitis Take 1 tablet (10 mg total) by mouth manager battery before breakfast Active Trelegy Ellipta 100-62.5-25 mcg inhalerIndicatio ns:Bronchospasm Prevention with COPD Inhale 1 puff manager battery before breakfast Active rosuvastatin (CRESTOR) 40 mg [...] tabletIndication s:supplement Take 1 tablet by mouth manager battery before breakfast Active metFORMIN (GLUCOPHAGE) 500 mg [...] (12/22/2020): Added automatically from request for surgery [id number] H/O endoscopic sinus surgery 01/05/2018 Chronic rhinosinusitis 01/05/2018 Gastro-esophageal reflux disease without esophag itis 02/09/2013 Asthma 02/09/2013 Overview (06/30/2024): Converted unresolved ICD9, potential mismatch. Nasal polyp 08/28/2012 Encounters Date Type Department Care Team Description 12/27/2024 11:03 AM CDT - 12/27/2024 11:59 PM CDT Hospital Encounter [facility] [address] [place] [address] Status post total shoulder arthroplasty, right Discharge Disposition: Discharge to home or self care 12/27/2024 11:00 AM CDT Office Visit [facility] Orthopa[facility] Surgery [address] [place] [address] Alfredo Rao MD Status post total shoulder arthroplasty, right (Primary Dx) from Last 3 Months Surgical [...] AM CDT Legal Sex Male 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 AM 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 Gender Identity Not on file Sexual Orientation Not on file Obstetrics History Last Filed Vital Signs Vital Sign Reading Time Taken Comments Blood Pressure 118/60 09/10/2024 7:00 AM 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 Pulse 70 09/10/2024 7:00 AM 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 Temperature 36.5 C (97.7 F) 09/10/2024 7:00 AM 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 Respiratory Rate 20 09/10/2024 7:00 AM 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 Oxygen Saturation 95% 09/10/2024 10:27 AM 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 Inhaled Oxygen Concentration - - Weight 81.2 kg (179 lb) 09/09/2024 6:30 AM 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 Height 175.3 cm (5' 9) 09/09/2024 6:30 AM 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 Body Mass Index 26.43 09/09/2024 6:30 AM 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 Plan of Treatment Health Maintenance Due Date [...] of 2) 05/19/2019 03/24/2019 Covid-19 Vaccine (5 - 2023-2 5 season) 2024 10/04/2021, 05/07/2021, 10/04/2020, Additional history exists Hemoglobin A1C 02/17/2025 08/20/2024, 10/28/2023 Influenza Vaccine (#1) 2025 , 04/13/2022, 05/13/2019, Additional history exists eGFR 08/20/2025 08/20/2024, 05/0 07/2023, 10/28/2023, Additional history exists Fall Risk Assessment 09/10/2025 09/10/2024 DTaP/Tdap/Td Vaccine (2 - Td or Tdap) 03/23/2028 03/23/2018 Medical Devices Implanted Type Area Stock Taker Device Identifier Shelf Expiration Date Model / Serial / Lot [employer] Simplex P Radiopaque Full Dose Cement Bone Sterile 6191-1-010 - [id number] Implanted:Qty: 1 on 11/11/2023 at [facility] Right: Shoulder [employer] 08/13/2025 6191-1-010 / / [id number] [employer] Humeral [place] Shoulder Sidus [id number] 0 [id number] - [id number] Implanted:Qty: 1 on 11/11/2023 at [facility] Right: Shoulder [employer] 05/08/2032 [id number] / / [id number] [employer] [place] Post Modular Component Glenoid Sterile Latex Free [id number] - [id number] Implanted:Qty: 1 on 11/11/2023 at [facility] Right: Shoulder [employer] 06/13/2033 [id number] / / [id number] [employer] [place]ord 3 Peg Modular Shoulder 5 Component Glenoid Sterile Latex [id number] - [id number] Implanted:Qty: 1 on 11/11/2023 at [facility] Right: Shoulder [employer] 09/15/2028 [id number] / / [id number] [employer] Sidus Od46 Mm H16 Mm Stem Free Shoulder Head Humeral Sterile Latex Free [id number] - [id number] Implanted:Qty: 1 on 11/11/2023 at [facility] Right: Shoulder [employer] 10/24/2032 [id number] / / [id number] [employer] Robert Kit Inflatable Penile Prosthesis Accessory Ams 700 Sterile [id number] - [id number] Implanted:Qty: 1 on 09/09/2024 by Navi Baker MD at [facility] Bilateral: Penis [employer] Robert 11/04/2028 [id number] / / [id number] [employer] Robert Surgical Sling Advance Xp Incont Urinary [id number] - [id number] Implanted:Qty: 1 on 09/09/2024 by Navi Baker MD at [facility] N/A: Urinary Bladder [employer] Robert [id number] 03/14/2026 [id number] / / [id number] [employer] Robert Ams Spectra 1.5cm Concealable Rear Tip Skein Washer Snapcone [id number] - [id number] Implanted:Qty: 1 on 09/09/2024 by Navi Baker MD at [facility] Bilateral: Penis [employer] Robert [id number] 09/08/2028 [id number] / / [id number] [employer] Robert Ams 700 Ms Pump Preconnect Inflatable Monona Prosthesis 65ml [id number] - [id number] Implanted:Qty: 1 on 09/09/2024 by Navi Baker MD at [facility] Bilateral: Abdomen [employer] Robert [id number] 06/24/2026 [id number] / / [id number] [employer] Robert Prosthesis Penile 18cm Ams 700 Lgx Infpb Tenacio Field Care Manager Inhbzn [id number] - [id number] Implanted:Qty: 1 on 09/09/2024 by Navi Baker MD at [facility] Bilateral: Penis [employer] Robert [id number] 06/15/2026 [id number] / / [id number] Procedures Procedure Name Priority Date/Time Associated Diagnosis Comments XR SHOULDER RIGHT 2 OR MORE VIEWS Schedule Routine, Read Routine (OP Routine) 12/27/2024 11:08 AM CDT Status post total shoulder arthroplasty, right EGFR Routine 08/20/2024 11:03 AM 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 Other male erectile dysfunction HEMOGLOBIN A1C Routine 08/20/2024 11:03 AM 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 Type 2 diabetes mellitus without complication, unspecified 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 Mild acromioclavicular joint osteoarthritis. Procedure Note Stone Lairdchayito Guerra, DO - 12/27/2024 EXAMINATION: XR SHOULDER RIGHT [...] Result * (ABNORMAL) eGFR (08/20/2024 11:03 AM 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) [facility] Signature eGFR 52(L) >=60 mL/min/1. 73 m2 Comment: [...] reviewed 2021. Blood 08/20/2024 11:0 3 AM 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 08/20/2024 11:14 AM 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 Navi Baker MD LAB BLOOD ORDERABLES Fi nal Result Performing Organization Address [facility] Co de Phone Number FAHEEMVINCE LIOR [phone] Department [place] [address] * (ABNORMAL) Hemoglobin A1c (08/20/2024 11:03 AM 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) Hgb A1C 6.0(H) 4.0 - 5.6 % Estimated Average Glucose 126 mg/dL BASHIR TINAJERO Comment: The ADA recommends reporting an estimated Average Glucose (eAG) with all Hemoglobin A1c results using the equation derived from a study of 507 normal and diabetic adults. Minority populations were underrepresented and children were not included. (Diabetes Care 31:1305-2209, 2008). The eAG is not equivalent to a fasting glucose. Blood 08/20/2024 11:0 3 AM 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 08/20/2024 11:13 AM 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 Nazia Linares NP LAB BLOOD ORDERABLES Final Res ult Performing Organization Address [facility] Co de Phone Number BASHIR TINAJERO [phone] [place] [address] from Last 3 Months or Most Recently Relevant to Health Maintenance Additional Health Concerns Infection Onset Date Last Indicated MDR gram neg/ESBL Comment:ESBL E.coli urine 06/02/2024 06/02/2024 06/02/2024 Insurance MEDICARE BLUE TRADITIONAL OOS MEDICARE [place] TRADITIONAL BLUE TRADITIONAL OOS MEDICARE [place] TRADITIONAL OOS Advance Directives For more information, please contact: [phone] * Full Code (Latest Code Status on File) Date Activated Date Inactivated Comments 09/09/2024 12:49 PM 09/10/2024 4:14 PM * Full Code Date Activated Date Inactivated Comments 11/11/2023 2:57 PM 11/12/2023 4:50 PM * Full Code Date Activated Date Inactivated Comments 06/25/2021 5:02 PM 06/26/2021 5:22 PM Care Teams Auditor Tax Relationship Specialty Start Date End Date Caesar Martin DO PCP - General 11/08/16 [place] [address] [address] [facility] [address] [place] [address] Consulting Physician Urology 09/10/24
--- OUTSIDE RECORDS SUMMARY | 2025-01-20 14:08 | XMS_ITS | Continuity of Care Document ---
Author Name [facility] Organization [facility] Care Team Providers Care Pyrometer Temperature Regulator Name Role Phone [facility] Unavailable Unavailable Problems Combined list of problems from [facility] and [facility] facilities. It does not include entries that were removed or entered in error. Problem Status Onset Date Problem Type Date of Resolution Comments Source Anemia ([facility] [id number]) Active Condition [facility] Benign essential hypertension Active Condition [facility] Chronic kidney disease Active Condition [facility] Chronic obstructive lung disease Active Condition [facility] Exposure to potentially hazardous substance Active Condition [facility] Hyperlipidemia Active Condition [facility] Malignant tumor of prostate Active Condition [facility] Obesity ([facility] [id number]) Active Condition [facility] Type 2 diabetes mellitus without complication Active Condition [facility] Asthma ([facility] [id number]) Inactive Condition 02/20/2022 [facility] Elevated PSA Inactive Condition 02/20/2022 [facility] Diagnosis: ICD-10-CM E11.9 Type 2 diabetes mellitus without complications Active Diagnosis [facility] Medications Combined list of outpatient medications from [facility] and [facility] facilities.Medications provided include 1) outpatient medications [...] CLOGGING . RESPIR ATORY (INHAL ATION) ACTIVE 04/10/2025 [id number] MARCY SILVA SA D 2024 3 [facility] ALBUTEROL SO4 90MCG/ACTUA T (CFC-F) INHL,ORAL,8 .5GM INHALE 2 PUFFS BY ORAL INHALATI ON FOUR TIMES A DAY NEEDED FOR BREATHIN G. SHAKE WELL. RINSE MOUTHPIE CE FREQUENT LY TO PREVENT CLOGGING . RESPIR ATORY (INHAL ATION) DISCONT INUED 01/17/2025 [id number] 5 MARCY SILVA SA 2024 3 [facility] ALBUTEROL SO4 90MCG/ACTUA T (CFC-F) INHL,ORAL,8 .5GM INHALE 2 PUFFS BY ORAL INHALATI ON FOUR TIMES A DAY NEEDED FOR BREATHIN G. SHAKE WELL. RINSE MOUTHPIE CE FREQUENT LY TO PREVENT CLOGGING . RESPIR ATORY (INHAL ATION) DISCONT INUED 09/10/2024 [id number] 5 MARCY SILVA SA 2023 1 [facility] AMLODIPINE BESYLATE 10MG TAB TAKE ONE TABLET BY MOUTH ONCE A DAY FOR HEART/BL OOD PRESSURE ORAL ACTIVE 05/07/2025 [id number] 5 ANDREAS GOLDMAN [address] [place] [address] [facility] AMLODIPINE BESYLATE 10MG TAB TAKE ONE TABLET BY MOUTH ONCE A DAY FOR HEART/BL OOD PRESSURE ORAL DISCONT INUED 05/08/2024 [id number] 4 ANDREAS GOLDMAN [address] [place] [address] [facility] CARVEDILOL 25MG TAB TAKE ONE-HALF TABLET BY MOUTH TWICE A DAY FOR HEART. TAKE WITH FOOD. ORAL DISCONT INUED 03/24/2024 [id number] 4 MARCY SILVA SA [address] [place] [address] [facility]IS[facility] N CARVEDILOL 25MG TAB TAKE ONE-HALF TABLET BY MOUTH TWICE A DAY FOR HEART. TAKE WITH FOOD. ORAL 01/07/2025 [id number] 5 MARCY SILVA SA [address] [place] [address] [facility] N CHOLECALCIF OSCAR (LOW DOSE VIT D) - (OTC) TAB TAKE 1 TAB (DOSE UNKNOWN) BY MOUTH ONCE A DAY ORAL ACTIVE MARCY SILVA SA Katz 2022 [facility] FLUTICASONE 100MCG/EARLENE NTEROL 25MCG INHL,ORAL,3 0D INHALE 1 PUFF ORAL INHALATI ON ONCE A DAY RESPIR ATORY (INHAL ATION) ACTIVE ME KYLE RODRIGUEZ 2018 [facility] [place] POTASSIUM 100MG TAB TAKE ONE TABLET BY MOUTH ONCE A DAY TO LOWER BLOOD PRESSURE ORAL ACTIVE 05/07/2025 [id number] 5 ANDREAS GOLDMAN 2023 90 [facility] [place] POTASSIUM 100MG TAB TAKE ONE TABLET BY MOUTH ONCE A DAY TO LOWER BLOOD PRESSURE ORAL DISCONT INUED 05/08/2024 [id number] 4 ANDREAS GOLDMAN 2022 90 [facility] METFORMIN HCL 500MG 24HR TAB,SA TAKE ONE TABLET BY MOUTH TWO TIMES A DAY BEFORE MEALS FOR BLOOD SUGAR CONTROL. TAKE WITH FOOD. AVOID ALCOHOL. DISCONTI NUE BEFORE GETTING XRAY DYE. ORAL ACTIVE 09/24/2025 [id number] 5 ANDREAS GOLDMAN 2024 180 [facility] METFORMIN HCL 500MG 24HR TAB,SA TAKE ONE TABLET BY MOUTH TWO TIMES A DAY BEFORE MEALS FOR BLOOD SUGAR CONTROL. TAKE WITH FOOD. AVOID ALCOHOL. DISCONTI NUE BEFORE GETTING XRAY DYE. ORAL DISCONT INUED 10/22/2024 [id number] 5 ANDREAS GOLDMAN 2023 60 [facility] METFORMIN HCL 500MG 24HR TAB,SA TAKE [...] OF STARTING . ORAL DISCONT INUED 10/22/2024 [id number] 4 ANDREAS GOLDMAN 2023 180 [facility] MULTIVITAMI NS CAP/TAB TAKE ONE TABLET BY MOUTH ONCE A DAY ORAL ACTIVE KINGMARCY SA D 2022 [facility] ROSUVASTATI N CA 40MG TAB TAKE ONE-HALF TABLET BY MOUTH EVERY EVENING TO LOWER CHOLESTE ROL (REPORT ANY MUSCLE PAIN OR WEAKNESS ) ORAL ACTIVE 11/23/2025 [id number] 5 MARCY SILVA SA D 2024 45 [facility] [place] N CA 40MG TAB TAKE ONE-HALF TABLET BY MOUTH EVERY EVENING TO LOWER CHOLESTE ROL (REPORT ANY MUSCLE PAIN OR WEAKNESS ) ORAL DISCONT INUED 12/30/2024 [id number] 5 RICARDOMARCY SA D 2023 45 [facility] Allergies, Adverse Reactions, Alerts Combined list of allergies from Department of Defense and Veterans Affairs facilities. It does not include entries that were removed or entered in error. Substance Category Reaction Severity Reaction type Status Date Reported Comments Source PENICILLIN Propensity to adverse reactions to drug (finding) Urticaria active 8 [facility] Immunizations Combined list of available immunizations from the Department of Defense and Veterans Affairs facilities. 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 Status Comments Source INFLUENZA, HIGH-DOSE, TRIVALENT, PF 2023 ANN RABAGO RIGHT DELTO ID [id number] 135 complet ed [facility] COVID-19 (PFIZER), MRNA, LNP-S, BIVALENT BOOSTER, PF, 30 MCG/0.3 ML DOSE 1 2021 300 complet ed HISTORICA L INFORMATI ON - FROM OTHER PROVIDER, [facility] INFLUENZA, UNSPECIFIED FORMULATION 2021 88 complet ed HISTORICA L INFORMATI ON - FROM OTHER PROVIDER, [facility] PNEUMOCOCCAL CONJUGATE PCV20, POLYSACCHARID E [id number] CONJUGATE, ADJUVANT, PF 2021 216 complet ed [facility] COVID-19 (Degreed), MRNA, LNP-S, PF, 30 MCG/0.3 ML DOSE 2 2021 208 complet ed HISTORICA L INFORMATI ON - FROM OTHER PROVIDER, [facility] COVID-19 (Degreed), MRNA, LNP-S, PF, 30 MCG/0.3 ML DOSE 3 2020 208 complet ed HISTORICA L INFORMATI ON - FROM OTHER PROVIDER, [facility] COVID-19 (Degreed), MRNA, LNP-S, PF, 30 MCG/0.3 ML DOSE 1 2020 208 complet ed HISTORICA L INFORMATI ON - FROM OTHER PROVIDER, [facility] INFLUENZA, TRIVALENT, ADJUVANTED 2018 168 complet ed HISTORICA L INFORMATI ON - FROM OTHER PROVIDER, Partner: [facility]. Administe red by: ZULEMA DAWKINS (EQI=[id number]). Partner 8 Lot#: [id number] Mfr: SEQIRUS; Dosage: 0.5 [facility] INFLUENZA, UNSPECIFIED FORMULATION [address] [facility] ZOSTER RECOMBINANT 1 2018 187 complet ed [facility] INFLUENZA, UNSPECIFIED FORMULATION 2017 88 complet ed [facility] TDAP 2017 115 complet ed Right Deltoid [facility] Results Combined list of recent chemistry, [...] May 08, 2023 11:39 AM Reporting Lab: [facility] [address] [facility] [facility] [place] [address] Performing Lab: [address] [address] [facility] LIPID PANEL (STL) TRIGLYCERIDE [MASS/VOLUME] IN SERUM OR PLASMA 110 mg/dL 0 - 150 05/05 Specimen Type: PLASMA Comment: No hemolysis noted. Ordering Provider: Christi GOLDMAN Report Released Date/Time: May 08, 2023 11:39 AM Reporting Lab: [address] [address] Performing Lab: [address] [address] [facility] LIPID PANEL (STL) CHOLESTEROL IN LDL [MASS/VOLUME] IN SERUM OR PLASMA BY CALCULATION 69 mg/dL 05/05 Specimen Type: PLASMA Comment: No hemolysis noted. Ordering Provider: Christi GOLDMAN Report Released Date/Time: May 08, 2023 11:39 AM Reporting Lab: [address] [address] Performing Lab: [address] [address] [facility] LIPID PANEL (STL) CHOLESTEROL IN HDL [MASS/VOLUME] IN SERUM OR PLASMA 31 mg/dL 40 05/05 L Specimen Type: PLASMA Comment: No hemolysis noted. Ordering Provider: Christi GOLDMAN Report Released Date/Time: May 08, 2023 11:39 AM Reporting Lab: [facility] [address] [place] [address] Performing Lab: [address] [address] [facility] IRON/TIBC PROFILE IRON BINDING CAPACITY [MASS/VOLUME] IN SERUM OR PLASMA 349 ug/dL 250 - 450 05/05 Specimen Type: SERUM Comment: No hemolysis noted. Ordering Provider: Christi GOLDMAN Report Released Date/Time: May 08, 2023 11:39 AM Reporting Lab: [facility] [address] [place] [address] Performing Lab: [facility] [address] [facility] [address] [facility] IRON/TIBC PROFILE TRANSFERRIN [MASS/VOLUME] IN SERUM OR PLASMA 279 mg/dL 163 - 344 05/05 Specimen Type: SERUM Comment: No hemolysis noted. Ordering Provider: Christi GOLDMAN Report Released Date/Time: May 08, 2023 11:39 AM Reporting Lab: [facility] [address] [place] [address] Performing Lab: [address] [address] [facility] IRON/TIBC PROFILE IRON SATURATION [MASS FRACTION] IN SERUM OR PLASMA 26 20 - 50 05/05 Specimen Type: SERUM Comment: No hemolysis noted. Ordering Provider: Christi GOLDMAN Report Released Date/Time: May 08, 2023 11:39 AM Reporting Lab: [address] [address] Performing Lab: [address] [address] [facility] IRON/TIBC PROFILE IRON [MASS/VOLUME] IN SERUM OR PLASMA 90 ug/dL 65 - 175 05/05 Specimen Type: SERUM Comment: No hemolysis noted. Ordering Provider: Christi GOLDMAN Report Released Date/Time: May 08, 2023 11:39 AM Reporting Lab: [address] [address] Performing Lab: [address] [address] [facility] HGA1C HEMOGLOBIN A1C/HEMOGLOBI N.TOTAL IN BLOOD 5.6 4.0 - 6.0 05/05 Specimen Type: BLOOD No comment entered. Ordering Provider: Christi GOLDMAN Report Released Date/Time: May 08, 2023 11:39 AM Reporting Lab: [facility] [address] [place] [address] Performing Lab: [facility] [address] [address] [facility] CBC LEUKOCYTES [#/VOLUME] IN BLOOD BY AUTOMATED COUNT 8.6 10*3/u L 3.6 - 11.2 05/05 Specimen Type: BLOOD No comment entered. Ordering Provider: Christi GOLDMAN Report Released Date/Time: May 08, 2023 11:39 AM Reporting Lab: [address] [address] Performing Lab: [address] [address] [facility] CBC ERYTHROCYTES [#/VOLUME] IN BLOOD BY AUTOMATED COUNT 3.98 10*6/u L 4.10 - 5.70 05/05 L Specimen Type: BLOOD No comment entered. Ordering Provider: Christi GOLDMAN Report Released Date/Time: May 08, 2023 11:39 AM Reporting Lab: [address] [address] Performing Lab: [address] [address] [facility] CBC HEMOGLOBIN [MASS/VOLUME] IN BLOOD 12.5 g/dL 13.1 - 16.8 05/05 L Specimen Type: BLOOD No comment entered. Ordering Provider: Christi GOLDMAN Report Released Date/Time: May 08, 2023 11:39 AM Reporting Lab: [address] [address] Performing Lab: [address] [address] [facility] CBC HEMATOCRIT [VOLUME FRACTION] OF BLOOD 36.6 38.2 - 48.4 05/05 L Specimen Type: BLOOD No comment entered. Ordering Provider: Christi GOLDMAN Report Released Date/Time: May 08, 2023 11:39 AM Reporting Lab: [address] [address] Performing Lab: [address] [address] [facility] CBC MCV [ENTITIC VOLUME] BY AUTOMATED COUNT 92.0 fL 80.0 - 100.0 05/05 Specimen Type: BLOOD No comment entered. Ordering Provider: Christi GOLDMAN Report Released Date/Time: May 08, 2023 11:39 AM Reporting Lab: [address] [address] Performing Lab: [place] [id number] [facility] CBC MCH [ENTITIC MASS] BY AUTOMATED COUNT 31.4 pg 27.0 - 34.0 05/05 Specimen Type: BLOOD No comment entered. Ordering Provider: Christi GOLDMAN Report Released Date/Time: May 08, 2023 11:39 AM Reporting Lab: [place] [phone] Performing Lab: [address] [facility] CBC MCHC [MASS/VOLUME] BY AUTOMATED COUNT 34.2 g/dL 33.0 - 36.0 05/05 Specimen Type: BLOOD No comment entered. Ordering Provider: Christi GOLDMAN Report Released Date/Time: May 08, 2023 11:39 AM Reporting Lab: [place] [phone] Performing Lab: [address] [phone] [facility] [facility] CBC PLATELETS [#/VOLUME] IN BLOOD BY AUTOMATED COUNT 209 10*3/u L 150 - 400 05/05 Specimen Type: BLOOD No comment entered. Ordering Provider: Christi GOLDMAN Report Released Date/Time: May 08, 2023 11:39 AM Reporting Lab: [place] [address] Performing Lab: [address] [phone] [facility] [facility] CBC PLATELET MEAN VOLUME [ENTITIC VOLUME] IN BLOOD BY AUTOMATED COUNT 10.0 fL 7.5 - 11.2 05/05 Specimen Type: BLOOD No comment entered. Ordering Provider: Christi GOLDMAN Report Released Date/Time: May 08, 2023 11:39 AM Reporting Lab: [facility] [address] [place] [address] Performing Lab: [facility] [address] [place] [address] [facility] CBC ERYTHROCYTE DISTRIBUTION WIDTH [RATIO] BY AUTOMATED COUNT 12.2 11.8 - 15.1 05/05 Specimen Type: BLOOD No comment entered. Ordering Provider: Christi GOLDMAN Report Released Date/Time: May 08, 2023 11:39 AM Reporting Lab: [facility] [address] [place] [address] Performing Lab: [facility] [address] [place] [phone] [facility] CBC LYMPHOCYTES/1 00 LEUKOCYTES IN BLOOD BY AUTOMATED COUNT 11 05/05 Specimen Type: BLOOD No comment entered. Ordering Provider: Christi GOLDMAN Report Released Date/Time: May 08, 2023 11:39 AM Reporting Lab: [facility] [address] [place] [address] Performing Lab: [facility] [address] [place] [address] [facility] CBC MONOCYTES/100 LEUKOCYTES IN BLOOD BY AUTOMATED COUNT 9 05/05 Specimen Type: BLOOD No comment entered. Ordering Provider: Christi GOLDMAN Report Released Date/Time: May 08, 2023 11:39 AM Reporting Lab: [facility] [address] [facility] [place] [address] Performing Lab: [facility] [address] [place] [phone] [facility] CBC NEUTROPHILS/1 00 LEUKOCYTES IN BLOOD BY AUTOMATED COUNT 75 05/05 Specimen Type: BLOOD No comment entered. Ordering Provider: Christi GOLDMAN Report Released Date/Time: May 08, 2023 11:39 AM Reporting Lab: [facility] [address] [facility] [place] [address] Performing Lab: [address] [address] [facility] CBC EOSINOPHILS/1 00 LEUKOCYTES IN BLOOD BY AUTOMATED COUNT 5 05/05 Specimen Type: BLOOD No comment entered. Ordering Provider: Christi GOLDMAN Report Released Date/Time: May 08, 2023 11:39 AM Reporting Lab: [address] [address] Performing Lab: [address] [address] [facility] CBC BASOPHILS/100 LEUKOCYTES IN BLOOD BY AUTOMATED COUNT 1 05/05 Specimen Type: BLOOD No comment entered. Ordering Provider: Christi GOLDMAN Report Released Date/Time: May 08, 2023 11:39 AM Reporting Lab: [address] [address] Performing Lab: [address] [address] [facility] CBC LYMPHOCYTES [#/VOLUME] IN BLOOD BY AUTOMATED COUNT 0.94 10*3/u L 0.77 - 4.50 05/05 Specimen Type: BLOOD No comment entered. Ordering Provider: Christi GOLDMAN Report Released Date/Time: May 08, 2023 11:39 AM Reporting Lab: [address] [address] Performing Lab: [address] [address] [facility] CBC MONOCYTES [#/VOLUME] IN BLOOD BY AUTOMATED COUNT 0.73 10*3/u L 0.19 - 0.80 05/05 Specimen Type: BLOOD No comment entered. Ordering Provider: Christi GOLDMAN Report Released Date/Time: May 08, 2023 11:39 AM Reporting Lab: [address] [address] Performing Lab: [address] [address] [facility] CBC NEUTROPHILS [#/VOLUME] IN BLOOD BY AUTOMATED COUNT 6.44 10*3/u L 2.10 - 8.00 05/05 Specimen Type: BLOOD No comment entered. Ordering Provider: Christi GOLDMAN Report Released Date/Time: May 08, 2023 11:39 AM Reporting Lab: [address] [address] Performing Lab: [address] [address] [facility] CBC EOSINOPHILS [#/VOLUME] IN BLOOD BY AUTOMATED COUNT 0.39 10*3/u L 0.00 - 0.60 05/05 Specimen Type: BLOOD No comment entered. Ordering Provider: Christi GOLDMAN Report Released Date/Time: May 08, 2023 11:39 AM Reporting Lab: [address] [address] Performing Lab: [address] [address] [facility] CBC BASOPHILS [#/VOLUME] IN BLOOD BY AUTOMATED COUNT 0.05 10*3/u L 0.00 - 0.20 05/05 Specimen Type: BLOOD No comment entered. Ordering Provider: Christi GOLDMAN Report Released Date/Time: May 08, 2023 11:39 AM Reporting Lab: [address] [address] Performing Lab: [address] [address] [facility] B12 COBALAMIN (VITAMIN B12) [MASS/VOLUME] IN SERUM OR PLASMA 702 pg/mL 213 - 816 05/05 Specimen Type: SERUM No comment entered. Ordering Provider: Christi GOLDMAN Report Released Date/Time: May 08, 2023 11:39 AM Reporting Lab: [address] [address] Performing Lab: [address] [address] [facility] FERRITIN FERRITIN [MASS/VOLUME] IN SERUM OR PLASMA 32.56 ng/mL 22 - 275 05/05 Specimen Type: SERUM No comment entered. Ordering Provider: Christi GOLDMAN Report Released Date/Time: May 08, 2023 11:39 AM Reporting Lab: [place] [address] [facility] [address] Performing Lab: [address] [address] [facility] FOLATE (STL-MA) FOLATE [MASS/VOLUME] IN SERUM OR PLASMA 17.3 ng/mL 7 - 20 05/05 Specimen Type: SERUM No comment entered. Ordering Provider: Christi GOLDMAN Report Released Date/Time: May 08, 2023 11:39 AM Reporting Lab: [address] [address] Performing Lab: [address] [address] [facility] VITAMIN D, 25-HYDROXY 25-HYDROXYVIT DE ANDA D3 [MASS/VOLUME] IN SERUM OR PLASMA 89.8 ng/mL 30 - 96 05/05 Specimen Type: SERUM No comment entered. Ordering Provider: Christi GOLDMAN Report Released Date/Time: May 08, 2023 11:39 AM Reporting Lab: [address] [address] Performing Lab: [address] [address] [facility] TSH (MA-PB) THYROTROPIN [UNITS/VOLUME ] IN SERUM OR PLASMA 0.937 u[IU]/ mL 0.47 - 5 05/05 Specimen Type: SERUM Comment: No hemolysis noted. Ordering Provider: Christi GOLDMAN Report Released Date/Time: May 08, 2023 11:39 AM Reporting Lab: [address] [address] Performing Lab: [address] [address] [facility] MICRAL/CRE AT PROFILE (STL) ALBUMIN [MASS/VOLUME] IN URINE 144.4 mg/L 05/05 Specimen Type: URINE No comment entered. Ordering Provider: Christi GOLDMAN Report Released Date/Time: May 08, 2023 11:39 AM Reporting Lab: [address] [address] Performing Lab: [address] [address] [facility] MICRAL/CRE AT PROFILE (STL) ALBUMIN/CREAT ININE [MASS RATIO] IN URINE 315 mg/g 0 - 29 05/05 H Specimen Type: URINE No comment entered. Ordering Provider: Christi GOLDMAN Report Released Date/Time: May 08, 2023 11:39 AM Reporting Lab: [address] [address] Performing Lab: [address] [address] [facility] MICRAL/CRE AT PROFILE (STL) CREATININE [MASS/VOLUME] IN URINE 45.9 mg/dL 63 - 166 05/05 L Specimen Type: URINE No comment entered. Ordering Provider: Christi GOLDMAN Report Released Date/Time: May 08, 2023 11:39 AM Reporting Lab: [address] [address] Performing Lab: [address] [address] [facility] Vital Signs Combined list of inpatient and outpatient Vital Signs from Department of Defense and Veterans Affairs, ranging from 12 months to all on record, depending upon the facility. Vital Sign Value Date Comments Source SYSTOLIC BLOOD PRESSURE 131 05/06/2024 10:30:27 [facility] DIASTOLIC BLOOD PRESSURE 70 05/06/2024 10:30:27 [facility] PULSE OXIMETRY 96 05/06/2024 10:30:27 [facility] WEIGHT 183 05/06/2024 10:30:27 [facility] BMI 27 kg/m2 05/06/2024 10:30:27 [facility] PAIN 0 05/06/2024 10:30:27 [facility] TEMPERATURE 97.9 05/06/2024 10:30:27 [facility] P[facility]SE 67 05/06/2024 10:30:27 [facility] RESPIRATION 18 05/06/2024 10:30:27 [facility] Encounters Combined list of: 1) Encounters from Department of Veterans Affairs facilities going backup to the last 18 months, not all [place] inpatient encounters are included; 2) Encounters from the Department of [facility] facilities going backup to 280 months. Location Location Details Encounter Type Encounter Number Reason For Visit Attending Provider ADM Date DC Date Status Disposition Source [facility] Outpatient Encounter [id number] JAV[facility] DIXON J 10[facility] Out[facility] Encounter [id number] 03/23 [facility] Outpatient Encounter [id number] GUIDO SCHWARZ O 05/05 [facility] Outpatient Encounter [id number] 05/06 [facility] OFF[facility] O/P EST MOD 30 MIN [id number] Diagnos is: ICD-10- CM E11.9 Type 2 diabete s mellitu s without complic ations GOLDMAN,T ODD 05/06 [facility] Outpatient Encounter [id number] 05/06 [facility] Social History Combined list of available smoking, tobacco, and other social history from Department of Defense and Veterans Affairs facilities. Social History Type Response Date Comment [facility] e Tobacco smoking status NHIS [facility]BACCO FORMER USER 05/06/2024 [facility] History of tobacco use VA-TOBACCO QUIT 1 5 YRS OR MORE 05/06/2024 [facility] History of tobacco use VA-TOBACCO QUIT 1 5 YRS OR MORE 05/08/2023 [facility] History of tobacco use VA-TOBACCO FORMER USER 02/20/2022 [facility] History of tobacco use VA-TOBACCO FORMER USER 03/09/2021 [facility] History of tobacco use VA-TOBACCO QUIT 1 5 YRS OR MORE 03/24/2019 [facility] History of tobacco use VA-TOBACCO FORMER USER 07/01/2018 [facility] History of tobacco use QUIT TOBACCO >7 Y EARS AGO 02/27/2018 [facility] Plan of Care List of future care activities from [facility] facilities. Additional future care activities may be listed in the Assessment and Plan section. Date/Time Care Activity Care Activity Detail Facili ty 05/06/2025 AMBULATORY - MEDICINE AMBULATORY - MEDICI NE [facility]
--- OUTSIDE RECORDS SUMMARY | 2025-01-20 14:08 | XMS_ITS | Referral Summary ---
Author Organization [facility] Medical [facility] [address] [place] [address] Care Team Providers Care Vascular Technologist Name Role Phone Caesar Martin DO Primary Care Provider [phone] Navi Baker MD Unavailable [phone] Encounters Date Type Department Care Team Description 12/27/2024 11:03 AM CDT - 12/27/2024 11:59 PM CDT Hospital Encounter [facility] [address] [place] [address] Status post total shoulder arthroplasty, right Discharge Disposition: Discharge to home or self care 12/27/2024 11:00 AM CDT Office Visit [facility] Orthopaedic Surgery [address] [place] [address] 2nd [address] [place] [phone] Alfredo Rao MD Status post total shoulder arthroplasty, right (Primary Dx) from Last 3 Months Allergies Active Allergy Reactions Criticality Noted Date Comments Penicillins Hives Medium Medications rw-szh-AH-Ca-Fe- lycopen-lutein 0.4-162-18 mg tabletIndication s:Mineral Deficiency Prevention [...] 1 tablet (100 mg total) by mouth six pack loader operator before breakfast Active carvediloL (COREG) 25 mg tabletIndication s:hypertension Take 0.5 tablets (12.5 mg total) by mouth 2 (two) times a day Active amLODIPine (NORVASC) 10 mg tabletIndication s:hypertension Take 1 tablet (10 mg total) by mouth six pack loader operator before breakfast Active docosahexaenoic acid/epa (FISH OIL ORAL) Take 1 capsule by mouth 3 (three) times a week 2000mg 600mg Take on Friday, Friday, Friday Active cetirizine (ZyrTEC) 10 mg tabletIndication s:Seasonal Allergic Rhinitis Take 1 tablet (10 mg total) by mouth six pack loader operator before breakfast Active Trelegy Ellipta 100-62.5-25 mcg inhalerIndicatio ns:Bronchospasm Prevention with COPD Inhale 1 puff six pack loader operator before breakfast Active rosuvastatin (CRESTOR) 40 mg [...] tabletIndication s:supplement Take 1 tablet by mouth six pack loader operator before breakfast Active metFORMIN (GLUCOPHAGE) 500 mg [...] (12/22/2020): Added automatically from request for surgery [id number] H/O endoscopic sinus surgery 01/05/2018 Chronic rhinosinusitis [...] AM CDT Legal Sex Male 2:05 AM SHOE REPAIR COBBLER Gender Identity Not on file Sexual Orientation Not on file Last Filed Vital Signs Vital Sign Reading Time Taken Comments Blood Pressure 118/60 09/10/2024 7:00 AM SHOE REPAIR COBBLER Pulse 70 09/10/2024 7:00 AM SHOE REPAIR COBBLER Temperature 36.5 C (97.7 F) 09/10/2024 7:00 AM SHOE REPAIR COBBLER Respiratory Rate 20 09/10/2024 7:00 AM SHOE REPAIR COBBLER Oxygen Saturation 95% 09/10/2024 10:27 AM SHOE REPAIR COBBLER Inhaled Oxygen Concentration - - Weight 81.2 kg (179 lb) 09/09/2024 6:30 AM SHOE REPAIR COBBLER Height 175.3 cm (5' 9) 09/09/2024 6:30 AM SHOE REPAIR COBBLER Body Mass Index 26.43 09/09/2024 6:30 AM SHOE REPAIR COBBLER Plan of Treatment Not on file Medical Devices Implanted Type Area Dramatic Art Teacher Device Identifier Shelf Expiration Date Model / Serial / Lot [employer] Simplex P Radiopaque Full Dose Cement Bone Sterile 6191-1-010 - [id number] Implanted:Qty: 1 on 11/11/2023 at [facility] Right: Shoulder [employer] 08/13/2025 6191-1-010 / / [id number] [employer] Humeral [place] Shoulder Sidus [id number] - [id number] Implanted:Qty: 1 on 11/11/2023 at [facility] Right: Shoulder [employer] 05/08/2032 [id number] / / [id number] [employer] Villalba Post Modular Component Glenoid Sterile Latex Free [id number] - [id number] Implanted:Qty: 1 on 11/11/2023 at [facility] Right: Shoulder [employer] 06/13/2033 [id number] / / [id number] [employer] Villalba 3 Peg Modular Shoulder 5 Component Glenoid Sterile Latex [id number] - [id number] Implanted:Qty: 1 on 11/11/2023 at [facility] Right: Shoulder [employer] 09/15/2028 [id number] / / [id number] [employer] Sidus Od46 Mm H16 Mm Stem Free Shoulder Head Humeral Sterile Latex Free [id number] - [id number] Implanted:Qty: 1 on 11/11/2023 at [facility] Right: Shoulder [employer] 10/24/2032 [id number] / / [id number] [employer] Kit Inflatable Penile Prosthesis Accessory Ams 700 Sterile [id number] - [id number] Implanted:Qty: 1 on 09/09/2024 by Navi Baker MD at [facility] Bilateral: Penis [employer] 11/04/2028 [id number] / / [id number] [employer] Surgical Sling Advance Xp Incont Urinary 958679-88 - [id number] Implanted:Qty: 1 on 09/09/2024 by Navi Baker MD at [facility] N/A: Urinary Bladder [employer] [id number] 03/14/2026 369681-23 / / [id number] [employer] Ams Spectra 1.5cm Concealable Rear Tip Crusher Machine Operator Snapcone [id number] - [id number] Implanted:Qty: 1 on 09/09/2024 by Navi Baker MD at [facility] Bilateral: Penis [employer] [id number] 09/08/2028 [id number] / / [id number] [employer] Ams 700 Ms Pump Preconnect Inflatable Zarate Prosthesis 65ml [id number] - [id number] Implanted:Qty: 1 on 09/09/2024 by Navi Baker MD at [facility] Bilateral: Abdomen [employer] [id number] 06/24/2026 [id number] / / [id number] [employer] Robert Prosthesis Penile 18cm Ams 700 Lgx Infpb Tenacio [employer] Communicator Inhbzn [id number] - [id number] Implanted:Qty: 1 on 09/09/2024 by Navi Baker MD at [facility] Bilateral: Penis [employer] Robert [id number] 06/15/2026 [id number] / / [id number] Procedures Procedure Name Priority Date/Time Associated Diagnosis Comments XR SHOULDER RIGHT 2 OR MORE VIEWS Schedule Routine, Read Routine (OP Routine) 12/27/2024 11:08 AM CDT Status post total shoulder arthroplasty, right EGFR Routine 08/20/2024 11:03 AM SHOE REPAIR COBBLER Other male erectile dysfunction HEMOGLOBIN A1C Routine 08/20/2024 11:03 AM SHOE REPAIR COBBLER Type 2 diabetes mellitus without complication, unspecified whether supervisor intermediates insulin use (HCC) from Last 3 Months [...] Result * (ABNORMAL) eGFR (08/20/2024 11:03 AM SHOE REPAIR COBBLER) eGFR 52(L) >=60 mL/min/1. 73 m2 Comment: [...] reviewed 2021. Blood 08/20/2024 11:0 3 AM SHOE REPAIR COBBLER 08/20/2024 11:14 AM SHOE REPAIR COBBLER us Navi Baker MD LAB BLOOD ORDERABLES Fi nal Result Performing Organization Address [facility] Co de Phone Number BASHIR TINAJERO [id number] [employer] [place] [address] * (ABNORMAL) Hemoglobin A1c (08/20/2024 11:03 AM SHOE REPAIR COBBLER) Hgb A1C 6.0(H) 4.0 - 5.6 % Estimated Average Glucose 126 mg/dL BASHIR TINAJERO Comment: The ADA recommends reporting an estimated Average Glucose (eAG) with all Hemoglobin A1c results using the equation derived from a study of 507 normal and diabetic adults. Minority populations were underrepresented and children were not included. (Diabetes Care 31:1332-7435, 2008). The eAG is not equivalent to a fasting glucose. Blood 08/20/2024 11:0 3 AM SHOE REPAIR COBBLER 08/20/2024 11:13 AM SHOE REPAIR COBBLER us Nazia Linares NP LAB BLOOD ORDERABLES Final Res ult BASHIR TINAJERO [id number] [place] [employer] [place] [address] from Last 3 Months or Most Recently Relevant to Health Maintenance Additional Health Concerns Infection Onset Date Last Indicated MDR gram neg/ESBL Comment:ESBL E.coli urine 06/02/2024 06/02/2024 06/02/2024 Insurance MEDICARE BLUE TRADITIONAL OOS MEDICARE [facility] TRADITIONAL BLUE TRADITIONAL OOS MEDICARE BLUE TRADITIONAL OOS Advance Directives For more information, please contact: [phone] * Full Code (Latest Code Status on File) Date Activated Date Inactivated Comments 09/09/2024 12:49 PM 09/10/2024 4:14 PM * Full Code Date Activated Date Inactivated Comments 11/11/2023 2:57 PM 11/12/2023 4:50 PM * Full Code Date Activated Date Inactivated Comments 06/25/2021 5:02 PM 06/26/2021 5:22 PM Care Teams Vascular Technologist Relationship Specialty Start Date End Date Caesar Martin DO PCP - General 11/08/16 [place] [address] [address] Consulting Physician Urology 09/10/24
== END 2025-01-20 14:05 | disposition home or self-care (01) ==
LOC: ANHGOSHLAB 14:06
PROVIDERS: PCP Internal Medicine; Visit Provider Internal Medicine
DX: R30.0 Dysuria (principal)
CPT/HCPCS: 87086

== ENCOUNTER 2025-01-24 10:24 | Outpatient (CLI) | payer MEDICARE, BC, SELFPAY ==
--- OUTSIDE RECORDS SUMMARY | 2025-01-24 10:27 | XMS_ITS | Referral Summary ---
Author Organization [facility] Medical [facility] [address] [place] [address] Care Team Providers Care Nail Maker Name Role Phone Caesar Martin DO Primary Care Provider [phone] Navi Baker MD Unavailable [phone] Encounters Date Type Department Care Team Description 12/27/2024 11:03 AM CDT - 12/27/2024 11:59 PM CDT Hospital Encounter [facility] [address] [place] [address] Status post total shoulder arthroplasty, right Discharge Disposition: Discharge to home or self care 12/27/2024 11:00 AM CDT Office Visit [facility] Orthopaedic Surgery [address] [place] [address] 2nd [address] [place] [phone] Alfredo Rao MD Status post total shoulder arthroplasty, right (Primary Dx) from Last 3 Months Allergies Active Allergy Reactions Criticality Noted Date Comments Penicillins Hives Medium Medications hg-eut-NC-Ca-Fe- lycopen-lutein 0.4-162-18 mg tabletIndication s:Mineral Deficiency Prevention [...] 1 tablet (100 mg total) by mouth early childhood assistant before breakfast Active carvediloL (COREG) 25 mg tabletIndication s:hypertension Take 0.5 tablets (12.5 mg total) by mouth 2 (two) times a day Active amLODIPine (NORVASC) 10 mg tabletIndication s:hypertension Take 1 tablet (10 mg total) by mouth early childhood assistant before breakfast Active docosahexaenoic acid/epa (FISH OIL ORAL) Take 1 capsule by mouth 3 (three) times a week 2000mg 600mg Take on Friday, Friday, Friday Active cetirizine (ZyrTEC) 10 mg tabletIndication s:Seasonal Allergic Rhinitis Take 1 tablet (10 mg total) by mouth early childhood assistant before breakfast Active Trelegy Ellipta 100-62.5-25 mcg inhalerIndicatio ns:Bronchospasm Prevention with COPD Inhale 1 puff early childhood assistant before breakfast Active rosuvastatin (CRESTOR) 40 mg [...] tabletIndication s:supplement Take 1 tablet by mouth early childhood assistant before breakfast Active metFORMIN (GLUCOPHAGE) 500 mg [...] (12/22/2020): Added automatically from request for surgery [id number] H/O endoscopic sinus surgery 01/05/2018 Chronic rhinosinusitis [...] AM CDT Legal Sex Male 2:05 AM BROKE HANDLER Gender Identity Not on file Sexual Orientation Not on file Last Filed Vital Signs Vital Sign Reading Time Taken Comments Blood Pressure 118/60 09/10/2024 7:00 AM BROKE HANDLER Pulse 70 09/10/2024 7:00 AM BROKE HANDLER Temperature 36.5 C (97.7 F) 09/10/2024 7:00 AM BROKE HANDLER Respiratory Rate 20 09/10/2024 7:00 AM BROKE HANDLER Oxygen Saturation 95% 09/10/2024 10:27 AM BROKE HANDLER Inhaled Oxygen Concentration - - Weight 81.2 kg (179 lb) 09/09/2024 6:30 AM BROKE HANDLER Height 175.3 cm (5' 9) 09/09/2024 6:30 AM BROKE HANDLER Body Mass Index 26.43 09/09/2024 6:30 AM BROKE HANDLER Plan of Treatment Not on file Medical Devices Implanted Type Area Wheel Filler Device Identifier Shelf Expiration Date Model / Serial / Lot [employer] Simplex P Radiopaque Full Dose Cement Bone Sterile 6191-1-010 - [id number] Implanted:Qty: 1 on 11/11/2023 at [facility] Right: Shoulder [employer] 08/13/2025 6191-1-010 / / [id number] [employer] Humeral [place] Shoulder Sidus [id number] - [id number] Implanted:Qty: 1 on 11/11/2023 at [facility] Right: Shoulder [employer] 05/08/2032 [id number] / / [id number] [employer] Spur Post Modular Component Glenoid Sterile Latex Free [id number] - [id number] Implanted:Qty: 1 on 11/11/2023 at [facility] Right: Shoulder [employer] 06/13/2033 [id number] / / [id number] [employer] Spur 3 Peg Modular Shoulder 5 Component Glenoid Sterile Latex [id number] - [id number] Implanted:Qty: 1 on 11/11/2023 at [facility] Right: Shoulder [employer] 09/15/2028 [id number] / / [id number] [employer] Sidus Od46 Mm H16 Mm Stem Free Shoulder Head Humeral Sterile Latex Free [id number] - [id number] Implanted:Qty: 1 on 11/11/2023 at [facility] Right: Shoulder [employer] 10/24/2032 [id number] / / [id number] [employer] Robert Kit Inflatable Penile Prosthesis Accessory Ams 700 Sterile [id number] - [id number] Implanted:Qty: 1 on 09/09/2024 by Navi Baker MD at [facility] Bilateral: Penis [employer] 11/04/2028 [id number] / / [id number] [employer] Surgical Sling Advance Xp Incont Urinary 275138-24 - [id number] Implanted:Qty: 1 on 09/09/2024 by Navi Baker MD at [facility] N/A: Urinary Bladder [employer] [id number] 03/14/2026 356396-09 / / [id number] [employer] Ams Spectra 1.5cm Concealable Rear Tip Corporate Relations Director Snapcone [id number] - [id number] Implanted:Qty: 1 on 09/09/2024 by Navi Baker MD at [facility] Bilateral: Penis [employer] [id number] 09/08/2028 [id number] / / [id number] [employer] Ams 700 Ms Pump Preconnect Inflatable [facility] Prosthesis 65ml [id number] - [id number] Implanted:Qty: 1 on 09/09/2024 by Navi Baker MD at [facility] Bilateral: Abdomen [employer] [id number] 06/24/2026 [id number] / / [id number] [employer] Prosthesis Penile 18cm Ams 700 Lgx Infpb Tenacio Head Well Puller Inhbzn [id number] - [id number] Implanted:Qty: 1 on 09/09/2024 by Navi Baker MD at [facility] Bilateral: Penis [employer] [id number] 06/15/2026 [id number] / / [id number] Procedures Procedure Name Priority Date/Time Associated Diagnosis Comments XR SHOULDER RIGHT 2 OR MORE VIEWS Schedule Routine, Read Routine (OP Routine) 12/27/2024 11:08 AM CDT Status post total shoulder arthroplasty, right EGFR Routine 08/20/2024 11:03 AM BROKE HANDLER Other male erectile dysfunction HEMOGLOBIN A1C Routine 08/20/2024 11:03 AM BROKE HANDLER Type 2 diabetes mellitus without complication, 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 73 m2 Comment: [...] reviewed 2021. Blood 08/20/2024 11:0 3 AM BROKE HANDLER 08/20/2024 11:14 AM BROKE HANDLER us Navi Baker MD LAB BLOOD ORDERABLES Fi nal Result Performing Organization Address [facility] Co de Phone Number BASHIR TINAJERO [phone] [place] [employer] [place] [address] * (ABNORMAL) Hemoglobin A1c (08/20/2024 11:03 AM BROKE HANDLER) Hgb A1C 6.0(H) 4.0 - 5.6 % Estimated Average Glucose 126 mg/dL BASHIR TINAJERO Comment: The ADA recommends reporting an estimated Average Glucose (eAG) with all Hemoglobin A1c results using the equation derived from a study of 507 normal and diabetic adults. Minority populations were underrepresented and children were not included. (Diabetes Care 31:9304-9080, 2008). The eAG is not equivalent to a fasting glucose. Blood 08/20/2024 11:0 3 AM BROKE HANDLER 08/20/2024 11:13 AM BROKE HANDLER us Nazia Linares NP LAB BLOOD ORDERABLES Final Res ult BASHIR TINAJERO [address] [place] [address] from Last 3 Months or Most Recently Relevant to Health Maintenance Additional Health Concerns Infection Onset Date Last Indicated MDR gram neg/ESBL Comment:ESBL E.coli urine 06/02/2024 06/02/2024 06/02/2024 Insurance MEDICARE BLUE TRADITIONAL OOS MEDICARE [facility] TRADITIONAL BLUE TRADITIONAL OOS MEDICARE BLUE TRADITIONAL OOS Advance Directives For more information, please contact: [phone] * Full Code (Latest Code Status on File) Date Activated Date Inactivated Comments 09/09/2024 12:49 PM 09/10/2024 4:14 PM * Full Code Date Activated Date Inactivated Comments 11/11/2023 2:57 PM 11/12/2023 4:50 PM * Full Code Date Activated Date Inactivated Comments 06/25/2021 5:02 PM 06/26/2021 5:22 PM Care Teams Nail Maker Relationship Specialty Start Date End Date Caesar Martin DO PCP - General 11/08/16 [place] [address] [address] Consulting Physician Urology 09/10/24
--- OUTSIDE RECORDS SUMMARY | 2025-01-24 10:27 | XMS_ITS | Clinical Summary ---
Author Organization [facility] Jennifer torres Address [address] [address] Phone Care Team Providers Care Molder Bench Name Role Phone Unavailable Primary Care Provider [...]
--- OUTSIDE RECORDS SUMMARY | 2025-01-24 10:27 | XMS_ITS | Clinical Summary ---
Author Organization [facility] Gabriela Rodgers Address [address] [place] [address] Care Team Providers Care Youth Worker Name Role Phone Caesar Martin DO Primary [...] Comments Blood Pressure 131/70 08/19/2023 1:04 PM DISTILLERY MANAGER Pulse 72 08/19/2023 1:04 PM DISTILLERY MANAGER Temperature 36.3 C (97.3 F) 08/19/2023 1:04 PM DISTILLERY MANAGER Respiratory Rate 14 08/19/2023 1:04 PM DISTILLERY MANAGER Oxygen Saturation 94% 08/19/2023 1:04 PM DISTILLERY MANAGER Inhaled Oxygen Concentration - - Weight 92.1 kg (203 lb) 08/19/2023 1:04 PM DISTILLERY MANAGER Height 175.3 cm (5' 9) 02/27/2023 10:26 [...] 09/27/2023 DIABETES HBA1C Q 6 MONTHS 08/11/20242023, 02/09/2024, 08/25/2023, Additional history exists DIABETES ANNUAL RETINAL EXAM 09/10/2024 09/11/2023 INFLUENZA VACCINE (#1) 2025 05/13/2019 DTAP/TDAP/TD VACCINES (2 - T d or Tdap) 03/23/2028 03/23/2018 Insurance MEDICARE PART A AND B [employer] SUPP Care Teams Youth Worker Relationship Specialty Start Date End Date Caesar Martin DO [address] [address] PCP - General Internal Medicine 02/27/23
--- OUTSIDE RECORDS SUMMARY | 2025-01-24 10:27 | XMS_ITS ---
Author Organization [facility] [address] [place] [address] Care Team Providers Care Medical Device Sales Name Role Phone Caesar Martin DO Primary Care Provider [phone] Navi Baker MD Unavailable [phone] Active Problems Problem Noted Date Diagnosed Date [...] (12/22/2020): Added automatically from request for surgery [id number] H/O endoscopic sinus surgery 01/05/2018 Chronic rhinosinusitis [...]
--- OUTSIDE RECORDS SUMMARY | 2025-01-24 10:27 | XMS_ITS | Clinical Summary ---
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 before breakfast Active carvediloL (COREG) 25 mg tabletIndication s:hypertension Take 0.5 tablets (12.5 mg total) by mouth 2 (two) times a day Active amLODIPine (NORVASC) 10 mg tabletIndication s:hypertension Take 1 tablet (10 mg total) by mouth bilingual medical assistant before breakfast Active docosahexaenoic acid/epa (FISH OIL ORAL) Take 1 capsule by mouth 3 (three) times a week 2000mg 600mg Take on Friday, Friday, Friday Active cetirizine (ZyrTEC) 10 mg tabletIndication s:Seasonal Allergic Rhinitis Take 1 tablet (10 mg total) by mouth bilingual medical assistant before breakfast Active Trelegy Ellipta 100-62.5-25 mcg inhalerIndicatio ns:Bronchospasm Prevention with COPD Inhale 1 puff bilingual medical assistant before breakfast Active rosuvastatin (CRESTOR) 40 [...] tabletIndication s:supplement Take 1 tablet by mouth bilingual medical assistant before breakfast Active metFORMIN (GLUCOPHAGE) 500 [...] (12/22/2020): Added automatically from request for surgery [id number] H/O endoscopic sinus surgery 01/05/2018 Chronic rhinosinusitis 01/05/2018 Gastro-esophageal reflux disease without esophag itis 02/09/2013 Asthma 02/09/2013 Overview (06/30/2024): Converted unresolved ICD9, potential mismatch. Nasal polyp 08/28/2012 Encounters Date Type Department Care Team Description 12/27/2024 11:03 AM CDT - 12/27/2024 11:59 PM CDT Hospital Encounter [facility] [address] [place] [address] Status post total shoulder arthroplasty, right Discharge Disposition: Discharge to home or self care 12/27/2024 11:00 AM CDT Office Visit [facility] [address] [facility] [address] [place] [address] Alfredo Rao MD Status post [...] AM CDT Legal Sex Male 2:05 AM PORCELAIN ENAMEL REPAIRER Gender Identity Not on file Sexual Orientation Not on file Obstetrics History Last Filed Vital Signs Vital Sign Reading Time Taken Comments Blood Pressure 118/60 09/10/2024 7:00 AM PORCELAIN ENAMEL REPAIRER Pulse 70 09/10/2024 7:00 AM PORCELAIN ENAMEL REPAIRER Temperature 36.5 C (97.7 F) 09/10/2024 7:00 AM PORCELAIN ENAMEL REPAIRER Respiratory Rate 20 09/10/2024 7:00 AM PORCELAIN ENAMEL REPAIRER Oxygen Saturation 95% 09/10/2024 10:27 AM PORCELAIN ENAMEL REPAIRER Inhaled Oxygen Concentration - - Weight 81.2 kg (179 lb) 09/09/2024 6:30 AM PORCELAIN ENAMEL REPAIRER Height 175.3 cm (5' 9) 09/09/2024 6:30 AM PORCELAIN ENAMEL REPAIRER Body Mass Index 26.43 09/09/2024 6:30 AM PORCELAIN ENAMEL REPAIRER Plan of Treatment Health Maintenance Due Date [...] 03/23/2028 03/23/2018 Medical Devices Implanted Type Area Supervisor Kennel Device Identifier Shelf Expiration Date Model / Serial / Lot [employer] Simplex P Radiopaque Full Dose Cement Bone Sterile 6191-1-010 - [id number] Implanted:Qty: 1 on 11/11/2023 at [facility] Right: Shoulder [employer] 08/13/2025 6191-1-010 / / [id number] [employer] Humeral Chandler Shoulder Sidus [id number] 0 [id number] - [id number] Implanted:Qty: 1 on 11/11/2023 at [facility] Right: Shoulder [employer] 05/08/2032 [id number] / / [id number] [employer] Melcroft Post Modular Component Glenoid Sterile Latex Free [id number] - [id number] Implanted:Qty: 1 on 11/11/2023 at [facility] Right: Shoulder [employer] 06/13/2033 [id number] / / [id number] [employer] Melcroft 3 Peg Modular Shoulder 5 Component Glenoid Sterile Latex [id number] - [id number] Implanted:Qty: 1 on 11/11/2023 at [facility] Right: Shoulder [employer] 09/15/2028 [id number] / / [id number] [employer] Sidus Od46 Mm H16 Mm Stem Free Shoulder Head Humeral Sterile Latex Free [id number] - [id number] Implanted:Qty: 1 on 11/11/2023 at [facility] Right: Shoulder [employer] 10/24/2032 [id number] / / [id number] [employer] Robert Kit Inflatable Penile Prosthesis Accessory Ams 700 Sterile [id number] - [id number] Implanted:Qty: 1 on 09/09/2024 by Navi Baker MD at [facility] Bilateral: Penis [employer] Robert 11/04/2028 [id number] / / [id number] [employer] Robert Surgical Sling Advance Xp Incont Urinary [id number] - [id number] Implanted:Qty: 1 on 09/09/2024 by Navi Baker MD at [facility] N/A: Urinary Bladder [employer] [id number] 03/14/2026 [id number] / / [id number] [employer] Ams Spectra 1.5cm Concealable Rear Tip Gas Prover Snapcone [id number] - [id number] Implanted:Qty: 1 on 09/09/2024 by Navi Baker MD at [facility] Bilateral: Penis [employer] Robert [id number] 09/08/2028 [id number] / / [id number] [employer] Robert Ams 700 Ms Pump Preconnect Inflatable [place]oyers Prosthesis 65ml [id number] - [id number] Implanted:Qty: 1 on 09/09/2024 by Navi Baker MD at [facility] Bilateral: Abdomen [employer] Robert [id number] 06/24/2026 [id number] / / [id number] [employer] Robert Prosthesis Penile 18cm Ams 700 Lgx Infpb Tenacio Map Compiler Inhbzn [id number] - [id number] Implanted:Qty: 1 on 09/09/2024 by Navi Baker MD at [facility] Bilateral: Penis [employer] Robert [id number] 06/15/2026 [id number] / / [id number] Procedures Procedure Name Priority Date/Time Associated Diagnosis Comments XR SHOULDER RIGHT 2 OR MORE VIEWS Schedule Routine, Read Routine (OP Routine) 12/27/2024 11:08 AM CDT Status post total shoulder arthroplasty, right EGFR Routine 08/20/2024 11:03 AM PORCELAIN ENAMEL REPAIRER Other male erectile dysfunction HEMOGLOBIN A1C Routine 08/20/2024 11:03 AM PORCELAIN ENAMEL REPAIRER Type 2 diabetes mellitus without complication, 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 73 m2 [...] reviewed 2021. Blood 08/20/2024 11:0 3 AM PORCELAIN ENAMEL REPAIRER 08/20/2024 11:14 AM PORCELAIN ENAMEL REPAIRER Navi Baker MD LAB BLOOD ORDERABLES Fi nal Result Performing Organization Address [facility] Co de Phone Number FAHEEMVINCE LIOR [address] Department [place] [address] * (ABNORMAL) Hemoglobin A1c (08/20/2024 11:03 AM PORCELAIN ENAMEL REPAIRER) Hgb A1C 6.0(H) 4.0 - 5.6 % Estimated Average Glucose 126 mg/dL BASHIR TINAJERO Comment: The ADA recommends reporting an estimated Average Glucose (eAG) with all Hemoglobin A1c results using the equation derived from a study of 507 normal and diabetic adults. Minority populations were underrepresented and children were not included. (Diabetes Care 31:8316-7814, 2008). The eAG is not equivalent to a fasting glucose. Blood 08/20/2024 11:0 3 AM PORCELAIN ENAMEL REPAIRER 08/20/2024 11:13 AM PORCELAIN ENAMEL REPAIRER Nazia Linares NP LAB BLOOD ORDERABLES Final Res ult Performing Organization Address [facility] Co de Phone Number BASHIR TINAJERO [phone] [place] [address] from Last 3 Months or Most Recently Relevant to Health Maintenance Additional Health Concerns Infection Onset Date Last Indicated MDR gram neg/ESBL Comment:ESBL E.coli urine 06/02/2024 06/02/2024 06/02/2024 Insurance MEDICARE BLUE TRADITIONAL OOS MEDICARE [place] TRADITIONAL BLUE TRADITIONAL OOS MEDICARE [place] TRADITIONAL OOS Advance Directives For more information, please contact: [phone] * Full Code (Latest Code Status on File) Date Activated Date Inactivated Comments 09/09/2024 12:49 PM 09/10/2024 4:14 PM * Full Code Date Activated Date Inactivated Comments 11/11/2023 2:57 PM 11/12/2023 4:50 PM * Full Code Date Activated Date Inactivated Comments 06/25/2021 5:02 PM 06/26/2021 5:22 PM Care Teams Tattooer Relationship Specialty Start Date End Date Caesar Martin DO PCP - General 11/08/16 [place] [id number] [address] [facility] [address] [place] [address] Consulting Physician Urology 09/10/24
--- OUTSIDE RECORDS SUMMARY | 2025-01-24 10:27 | XMS_ITS | Continuity of Care Document ---
Author Name [facility] Organization [facility] Care Team Providers Care Sales Floor Team Leader Name Role Phone [facility] Unavailable Unavailable Problems Combined list of problems from [facility] facilities. It does not include entries that were removed or entered in error. Problem Status Onset Date Problem Type Date of Resolution Comments Source Anemia ([facility] [id number]) Active Condition [facility] Benign essential hypertension Active Condition [facility] Chronic kidney disease Active Condition [facility] Chronic obstructive lung disease Active Condition [facility] Exposure to potentially hazardous substance Active Condition [facility] Hyperlipidemia Active Condition [facility] Malignant tumor of prostate Active Condition [facility] Obesity ([facility] [id number]) Active Condition [facility] Type 2 diabetes mellitus without complication Active Condition [facility] Asthma ([facility] [id number]) Inactive Condition 02/20/2022 [facility] Elevated PSA Inactive Condition 02/20/2022 [facility] Diagnosis: ICD-10-CM E11.9 Type 2 diabetes mellitus without complications Active Diagnosis [facility] Medications Combined list of outpatient medications from [facility] facilities.Medications provided include 1) outpatient medications [...] . RESPIR ATORY (INHAL ATION) ACTIVE 04/10/2025 [id number] 5 MARCY SILVA SA D 2024 3 [facility] ALBUTEROL SO4 90MCG/ACTUA T (CFC-F) INHL,ORAL,8 .5GM INHALE 2 PUFFS BY ORAL INHALATI ON FOUR TIMES A DAY NEEDED FOR BREATHIN G. SHAKE WELL. RINSE MOUTHPIE CE FREQUENT LY TO PREVENT CLOGGING . RESPIR ATORY (INHAL ATION) DISCONT INUED 01/17/2025 [id number] 5 MARCY SILVA SA 2024 3 [facility] ALBUTEROL SO4 90MCG/ACTUA T (CFC-F) INHL,ORAL,8 .5GM INHALE 2 PUFFS BY ORAL INHALATI ON FOUR TIMES A DAY NEEDED FOR BREATHIN G. SHAKE WELL. RINSE MOUTHPIE CE FREQUENT LY TO PREVENT CLOGGING . RESPIR ATORY (INHAL ATION) DISCONT INUED 09/10/2024 [id number] 5 MARCY SILVA SA 2023 1 [facility] AMLODIPINE BESYLATE 10MG TAB TAKE ONE TABLET BY MOUTH ONCE A DAY FOR HEART/BL OOD PRESSURE ORAL SUSPEND ED 05/07/2025 [id number] 5 ANDREAS GOLDMAN [address] [place] [address] [facility] AMLODIPINE BESYLATE 10MG TAB TAKE ONE TABLET BY MOUTH ONCE A DAY FOR HEART/BL OOD PRESSURE ORAL DISCONT INUED 05/08/2024 [id number] 4 ANDREAS GOLDMAN [address] [place] [address] [facility] CARVEDILOL 25MG TAB TAKE ONE-HALF TABLET BY MOUTH TWICE A DAY FOR HEART. TAKE WITH FOOD. ORAL DISCONT INUED 03/24/2024 [id number] 4 MARCY SILVA SA [address] [place] [address] [facility]IS[facility] N CARVEDILOL 25MG TAB TAKE ONE-HALF TABLET BY MOUTH TWICE A DAY FOR HEART. TAKE WITH FOOD. ORAL 01/07/2025 [id number] 5 MARCY SILVA SA [address] [place] [address] [facility] N CHOLECALCIF OSCAR (LOW DOSE VIT D) - (OTC) TAB TAKE 1 TAB (DOSE UNKNOWN) BY MOUTH ONCE A DAY ORAL ACTIVE MARCY SILVA D 2022 [facility] FLUTICASONE 100MCG/EARLENE NTEROL 25MCG INHL,ORAL,3 0D INHALE 1 PUFF ORAL INHALATI ON ONCE A DAY RESPIR ATORY (INHAL ATION) ACTIVE ME KYLE RODRIGUEZ 2018 [facility] [place] POTASSIUM 100MG TAB TAKE ONE TABLET BY MOUTH ONCE A DAY TO LOWER BLOOD PRESSURE ORAL ACTIVE 05/07/2025 [id number] 5 ANDREAS GOLDMAN 2023 90 [facility] [place] POTASSIUM 100MG TAB TAKE ONE TABLET BY MOUTH ONCE A DAY TO LOWER BLOOD PRESSURE ORAL DISCONT INUED 05/08/2024 [id number] 4 ANDREAS GOLDMAN 2022 90 [facility] METFORMIN HCL 500MG 24HR TAB,SA TAKE ONE TABLET BY MOUTH TWO TIMES A DAY BEFORE MEALS FOR BLOOD SUGAR CONTROL. TAKE WITH FOOD. AVOID ALCOHOL. DISCONTI NUE BEFORE GETTING XRAY DYE. ORAL ACTIVE 09/24/2025 [id number] 5 ANDREAS GOLDMAN 2024 180 [facility] METFORMIN HCL 500MG 24HR TAB,SA TAKE ONE TABLET BY MOUTH TWO TIMES A DAY BEFORE MEALS FOR BLOOD SUGAR CONTROL. TAKE WITH FOOD. AVOID ALCOHOL. DISCONTI NUE BEFORE GETTING XRAY DYE. ORAL DISCONT INUED 10/22/2024 [id number] 5 ANDREAS GOLDMAN 2023 60 [facility] METFORMIN HCL 500MG 24HR TAB,SA TAKE [...] OF STARTING . ORAL DISCONT INUED 10/22/2024 [id number] 4 ANDREAS GOLDMAN 2023 180 [facility] MULTIVITAMI NS CAP/TAB TAKE ONE TABLET BY MOUTH ONCE A DAY ORAL ACTIVE KINGMARCY SA D 2022 [facility] ROSUVASTATI N CA 40MG TAB TAKE ONE-HALF TABLET BY MOUTH EVERY EVENING TO LOWER CHOLESTE ROL (REPORT ANY MUSCLE PAIN OR WEAKNESS ) ORAL ACTIVE 11/23/2025 [id number] 5 RICARDOCHANAE SA D 2024 45 [facility] ROSUVASTATI N CA 40MG TAB TAKE ONE-HALF TABLET BY MOUTH EVERY EVENING TO LOWER CHOLESTE ROL (REPORT ANY MUSCLE PAIN OR WEAKNESS ) ORAL DISCONT INUED 12/30/2024 [id number] 5 RICARDOCHANARohit SHAH D 2023 45 [facility] Allergies, Adverse Reactions, Alerts Combined list of allergies from Department of Defense and Veterans Affairs facilities. It does not include entries that were removed or entered in error. Substance Category Reaction Severity Reaction type Status Date Reported Comments Source PENICILLIN Propensity to adverse reactions to drug (finding) Urticaria active 8 [facility] Immunizations Combined list of available immunizations from the Department of Defense and Veterans Affairs facilities. Immunization Series Date Given Administered By Site Reaction Lot Number CVX Code Drug Information Support Project Manager Status Comments Source INFLUENZA, HIGH-DOSE, TRIVALENT, PF 2023 ANN RABAGO RIGHT DELTO ID [id number] 135 complet ed [facility] COVID-19 (PFIZER), MRNA, LNP-S, BIVALENT BOOSTER, PF, 30 MCG/0.3 ML DOSE 1 2021 300 complet ed HISTORICA L INFORMATI ON - FROM OTHER PROVIDER, [facility] INFLUENZA, UNSPECIFIED FORMULATION 2021 88 complet ed HISTORICA L INFORMATI ON - FROM OTHER PROVIDER, [facility] PNEUMOCOCCAL CONJUGATE PCV20, POLYSACCHARID E [id number] CONJUGATE, ADJUVANT, PF 2021 216 complet ed [facility] COVID-19 ([facility]), MRNA, LNP-S, PF, 30 MCG/0.3 ML DOSE 2 2021 208 complet ed HISTORICA L INFORMATI ON - FROM OTHER PROVIDER, [facility] COVID-19 ([facility]), MRNA, LNP-S, PF, 30 MCG/0.3 ML DOSE 3 2020 208 complet ed HISTORICA L INFORMATI ON - FROM OTHER PROVIDER, [facility] COVID-19 ([facility]), MRNA, LNP-S, PF, 30 MCG/0.3 ML DOSE 1 2020 208 complet ed HISTORICA L INFORMATI ON - FROM OTHER PROVIDER, [facility] INFLUENZA, TRIVALENT, ADJUVANTED 2018 168 complet ed HISTORICA L INFORMATI ON - FROM OTHER PROVIDER, Partner: [facility]. Administe red by: ZULEMA DAWKINS (ULU=[phone]). Partner 8 Lot#: [id number] Mfr: SEQIRUS; Dosage: 0.5 [facility] INFLUENZA, UNSPECIFIED FORMULATION 2018 88 complet ed [facility] ZOSTER RECOMBINANT 1 2018 187 complet ed [facility] INFLUENZA, UNSPECIFIED FORMULATION 2017 88 complet ed [facility] TDAP 2017 115 complet ed Right Deltoid [facility] Results Combined list of recent chemistry, [...] 08, 2023 11:39 AM Reporting Lab: [facility] [address] [facility] [place] [address] Performing Lab: [address] [address] [facility] LIPID PANEL (STL) TRIGLYCERIDE [MASS/VOLUME] IN SERUM OR PLASMA 110 mg/dL 0 - 150 05/05 Specimen Type: PLASMA Comment: No hemolysis noted. Ordering Provider: Christi GOLDMAN Report Released Date/Time: May 08, 2023 11:39 AM Reporting Lab: [address] [address] Performing Lab: [address] [address] [facility] LIPID PANEL (STL) CHOLESTEROL IN LDL [MASS/VOLUME] IN SERUM OR PLASMA BY CALCULATION 69 mg/dL 05/05 Specimen Type: PLASMA Comment: No hemolysis noted. Ordering Provider: Christi GOLDMAN Report Released Date/Time: May 08, 2023 11:39 AM Reporting Lab: [address] [address] Performing Lab: [address] [address] [facility] LIPID PANEL (STL) CHOLESTEROL IN HDL [MASS/VOLUME] IN SERUM OR PLASMA 31 mg/dL 40 05/05 L Specimen Type: PLASMA Comment: No hemolysis noted. Ordering Provider: Christi GOLDMAN Report Released Date/Time: May 08, 2023 11:39 AM Reporting Lab: [facility] [address] [place] [phone] Performing Lab: [address] [address] [facility] IRON/TIBC PROFILE IRON BINDING CAPACITY [MASS/VOLUME] IN SERUM OR PLASMA 349 ug/dL 250 - 450 05/05 Specimen Type: SERUM Comment: No hemolysis noted. Ordering Provider: Christi GOLDMAN Report Released Date/Time: May 08, 2023 11:39 AM Reporting Lab: [facility] [address] [place] [phone] Performing Lab: [facility] [address] [facility] [address] [facility] IRON/TIBC PROFILE TRANSFERRIN [MASS/VOLUME] IN SERUM OR PLASMA 279 mg/dL 163 - 344 05/05 Specimen Type: SERUM Comment: No hemolysis noted. Ordering Provider: Christi GOLDMAN Report Released Date/Time: May 08, 2023 11:39 AM Reporting Lab: [address] [address] Performing Lab: [address] [address] [facility] IRON/TIBC PROFILE IRON SATURATION [MASS FRACTION] IN SERUM OR PLASMA 26 20 - 50 05/05 Specimen Type: SERUM Comment: No hemolysis noted. Ordering Provider: Christi GOLDMAN Report Released Date/Time: May 08, 2023 11:39 AM Reporting Lab: [address] [address] Performing Lab: [address] [address] [facility] IRON/TIBC PROFILE IRON [MASS/VOLUME] IN SERUM OR PLASMA 90 ug/dL 65 - 175 05/05 Specimen Type: SERUM Comment: No hemolysis noted. Ordering Provider: Christi GOLDMAN Report Released Date/Time: May 08, 2023 11:39 AM Reporting Lab: [address] [address] Performing Lab: [address] [address] [facility] HGA1C HEMOGLOBIN A1C/HEMOGLOBI N.TOTAL IN BLOOD 5.6 4.0 - 6.0 05/05 Specimen Type: BLOOD No comment entered. Ordering Provider: Christi GOLDMAN Report Released Date/Time: May 08, 2023 11:39 AM Reporting Lab: [address] [address] Performing Lab: [address] [address] [facility] CBC LEUKOCYTES [#/VOLUME] IN BLOOD BY AUTOMATED COUNT 8.6 10*3/u L 3.6 - 11.2 05/05 Specimen Type: BLOOD No comment entered. Ordering Provider: Christi GOLDMAN Report Released Date/Time: May 08, 2023 11:39 AM Reporting Lab: [address] [address] Performing Lab: [address] [address] [facility] CBC ERYTHROCYTES [#/VOLUME] IN BLOOD BY AUTOMATED COUNT 3.98 10*6/u L 4.10 - 5.70 05/05 L Specimen Type: BLOOD No comment entered. Ordering Provider: Christi GOLDMAN Report Released Date/Time: May 08, 2023 11:39 AM Reporting Lab: [address] [address] Performing Lab: [address] [address] [facility] CBC HEMOGLOBIN [MASS/VOLUME] IN BLOOD 12.5 g/dL 13.1 - 16.8 05/05 L Specimen Type: BLOOD No comment entered. Ordering Provider: Christi GOLDMAN Report Released Date/Time: May 08, 2023 11:39 AM Reporting Lab: [address] [address] Performing Lab: [address] [address] [facility] CBC HEMATOCRIT [VOLUME FRACTION] OF BLOOD 36.6 38.2 - 48.4 05/05 L Specimen Type: BLOOD No comment entered. Ordering Provider: Christi GOLDMAN Report Released Date/Time: May 08, 2023 11:39 AM Reporting Lab: [address] [address] Performing Lab: [address] [phone] [place] [address] [facility] CBC MCV [ENTITIC VOLUME] BY AUTOMATED COUNT 92.0 fL 80.0 - 100.0 05/05 Specimen Type: BLOOD No comment entered. Ordering Provider: Christi GOLDMAN Report Released Date/Time: May 08, 2023 11:39 AM Reporting Lab: [address] [address] Performing Lab: [address] [facility] CBC MCH [ENTITIC MASS] BY AUTOMATED COUNT 31.4 pg 27.0 - 34.0 05/05 Specimen Type: BLOOD No comment entered. Ordering Provider: Christi GOLDMAN Report Released Date/Time: May 08, 2023 11:39 AM Reporting Lab: [place] [address] Performing Lab: [address] [facility] CBC MCHC [MASS/VOLUME] BY AUTOMATED COUNT 34.2 g/dL 33.0 - 36.0 05/05 Specimen Type: BLOOD No comment entered. Ordering Provider: Christi GOLDMAN Report Released Date/Time: May 08, 2023 11:39 AM Reporting Lab: [place] [phone] Performing Lab: [place] [phone] [facility] CBC PLATELETS [#/VOLUME] IN BLOOD BY AUTOMATED COUNT 209 10*3/u L 150 - 400 05/05 Specimen Type: BLOOD No comment entered. Ordering Provider: Christi GOLDMAN Report Released Date/Time: May 08, 2023 11:39 AM Reporting Lab: [place] [address] Performing Lab: [address] [facility] CBC PLATELET MEAN VOLUME [ENTITIC VOLUME] IN BLOOD BY AUTOMATED COUNT 10.0 fL 7.5 - 11.2 05/05 Specimen Type: BLOOD No comment entered. Ordering Provider: Christi GOLDMAN Report Released Date/Time: May 08, 2023 11:39 AM Reporting Lab: [facility] [address] [facility] [address] Performing Lab: [facility] [address] [place] [phone] [facility] CBC ERYTHROCYTE DISTRIBUTION WIDTH [RATIO] BY AUTOMATED COUNT 12.2 11.8 - 15.1 05/05 Specimen Type: BLOOD No comment entered. Ordering Provider: Christi GOLDMAN Report Released Date/Time: May 08, 2023 11:39 AM Reporting Lab: [facility] [address] [place] [phone] Performing Lab: [facility] [address] [place] [phone] [facility] CBC LYMPHOCYTES/1 00 LEUKOCYTES IN BLOOD BY AUTOMATED COUNT 11 05/05 Specimen Type: BLOOD No comment entered. Ordering Provider: Christi GOLDMAN Report Released Date/Time: May 08, 2023 11:39 AM Reporting Lab: [facility] [address] [facility] [address] Performing Lab: [facility] [address] [place] [phone] [facility] CBC MONOCYTES/100 LEUKOCYTES IN BLOOD BY AUTOMATED COUNT 9 05/05 Specimen Type: BLOOD No comment entered. Ordering Provider: Christi GOLDMAN Report Released Date/Time: May 08, 2023 11:39 AM Reporting Lab: [facility] [address] [facility] [address] Performing Lab: [facility] [address] [place] [phone] [facility] CBC NEUTROPHILS/1 00 LEUKOCYTES IN BLOOD BY AUTOMATED COUNT 75 05/05 Specimen Type: BLOOD No comment entered. Ordering Provider: Christi GOLDMAN Report Released Date/Time: May 08, 2023 11:39 AM Reporting Lab: [facility] [address] [place] [phone] Performing Lab: [address] [address] [facility] CBC EOSINOPHILS/1 00 LEUKOCYTES IN BLOOD BY AUTOMATED COUNT 5 05/05 Specimen Type: BLOOD No comment entered. Ordering Provider: Christi GOLDMAN Report Released Date/Time: May 08, 2023 11:39 AM Reporting Lab: [address] [address] Performing Lab: [address] [address] [facility] CBC BASOPHILS/100 LEUKOCYTES IN BLOOD BY AUTOMATED COUNT 1 05/05 Specimen Type: BLOOD No comment entered. Ordering Provider: Christi GOLDMAN Report Released Date/Time: May 08, 2023 11:39 AM Reporting Lab: [address] [address] Performing Lab: [address] [address] [facility] CBC LYMPHOCYTES [#/VOLUME] IN BLOOD BY AUTOMATED COUNT 0.94 10*3/u L 0.77 - 4.50 05/05 Specimen Type: BLOOD No comment entered. Ordering Provider: Christi GOLDMAN Report Released Date/Time: May 08, 2023 11:39 AM Reporting Lab: [address] [address] Performing Lab: [address] [address] [facility] CBC MONOCYTES [#/VOLUME] IN BLOOD BY AUTOMATED COUNT 0.73 10*3/u L 0.19 - 0.80 05/05 Specimen Type: BLOOD No comment entered. Ordering Provider: Christi GOLDMAN Report Released Date/Time: May 08, 2023 11:39 AM Reporting Lab: [address] [address] Performing Lab: [address] [place] [address] [facility] CBC NEUTROPHILS [#/VOLUME] IN BLOOD BY AUTOMATED COUNT 6.44 10*3/u L 2.10 - 8.00 05/05 Specimen Type: BLOOD No comment entered. Ordering Provider: Christi GOLDMAN Report Released Date/Time: May 08, 2023 11:39 AM Reporting Lab: [address] [address] Performing Lab: [address] [address] [facility] CBC EOSINOPHILS [#/VOLUME] IN BLOOD BY AUTOMATED COUNT 0.39 10*3/u L 0.00 - 0.60 05/05 Specimen Type: BLOOD No comment entered. Ordering Provider: Christi GOLDMAN Report Released Date/Time: May 08, 2023 11:39 AM Reporting Lab: [address] [address] Performing Lab: [address] [address] [facility] CBC BASOPHILS [#/VOLUME] IN BLOOD BY AUTOMATED COUNT 0.05 10*3/u L 0.00 - 0.20 05/05 Specimen Type: BLOOD No comment entered. Ordering Provider: Christi GOLDMAN Report Released Date/Time: May 08, 2023 11:39 AM Reporting Lab: [address] [address] Performing Lab: [address] [address] [facility] B12 COBALAMIN (VITAMIN B12) [MASS/VOLUME] IN SERUM OR PLASMA 702 pg/mL 213 - 816 05/05 Specimen Type: SERUM No comment entered. Ordering Provider: Christi GOLDMAN Report Released Date/Time: May 08, 2023 11:39 AM Reporting Lab: [address] [address] Performing Lab: [place] [phone] [facility] FERRITIN FERRITIN [MASS/VOLUME] IN SERUM OR PLASMA 32.56 ng/mL 22 - 275 05/05 Specimen Type: SERUM No comment entered. Ordering Provider: Christi GOLDMAN Report Released Date/Time: May 08, 2023 11:39 AM Reporting Lab: [address] [address] Performing Lab: [address] [address] [facility] FOLATE (STL-MA) FOLATE [MASS/VOLUME] IN SERUM OR PLASMA 17.3 ng/mL 7 - 20 05/05 Specimen Type: SERUM No comment entered. Ordering Provider: Christi GOLDMAN Report Released Date/Time: May 08, 2023 11:39 AM Reporting Lab: [address] [address] Performing Lab: [address] [phone] [facility] VITAMIN D, 25-HYDROXY 25-HYDROXYVIT DE ANDA D3 [MASS/VOLUME] IN SERUM OR PLASMA 89.8 ng/mL 30 - 96 05/05 Specimen Type: SERUM No comment entered. Ordering Provider: Christi GOLDMAN Report Released Date/Time: May 08, 2023 11:39 AM Reporting Lab: [address] [address] Performing Lab: [address] [address] [facility] TSH (MA-PB) THYROTROPIN [UNITS/VOLUME ] IN SERUM OR PLASMA 0.937 u[IU]/ mL 0.47 - 5 05/05 Specimen Type: SERUM Comment: No hemolysis noted. Ordering Provider: Christi GOLDMAN Report Released Date/Time: May 08, 2023 11:39 AM Reporting Lab: [address] [address] Performing Lab: [place] [phone] [facility] MICRAL/CRE AT PROFILE (STL) ALBUMIN [MASS/VOLUME] IN URINE 144.4 mg/L 05/05 Specimen Type: URINE No comment entered. Ordering Provider: Christi GOLDMAN Report Released Date/Time: May 08, 2023 11:39 AM Reporting Lab: [address] [address] Performing Lab: [address] [address] [facility] MICRAL/CRE AT PROFILE (STL) ALBUMIN/CREAT ININE [MASS RATIO] IN URINE 315 mg/g 0 - 29 05/05 H Specimen Type: URINE No comment entered. Ordering Provider: Christi GOLDMAN Report Released Date/Time: May 08, 2023 11:39 AM Reporting Lab: [address] [address] Performing Lab: [address] [address] [facility] MICRAL/CRE AT PROFILE (STL) CREATININE [MASS/VOLUME] IN URINE 45.9 mg/dL 63 - 166 05/05 L Specimen Type: URINE No comment entered. Ordering Provider: Christi GOLDMAN Report Released Date/Time: May 08, 2023 11:39 AM Reporting Lab: [address] [address] Performing Lab: [address] [address] [facility] Vital Signs Combined list of inpatient and outpatient Vital Signs from Department of Defense and Veterans Affairs, ranging from 12 months to all on record, depending upon the facility. Vital Sign Value Date Comments Source SYSTOLIC BLOOD PRESSURE 131 05/06/2024 10:30:27 [facility] DIASTOLIC BLOOD PRESSURE 70 05/06/2024 10:30:27 [facility] PULSE OXIMETRY 96 05/06/2024 10:30:27 [facility] WEIGHT 183 05/06/2024 10:30:27 [facility] BMI 27 kg/m2 05/06/2024 10:30:27 [facility] PAIN 0 05/06/2024 [facility]30[facility] 97.9 05[facility]06[facility] 67 05/06/2024 10:30:27 [facility] RESPIRATION 18 05/06/2024 10:30:27 [facility] Encounters Combined list of: 1) Encounters from [facility] facilities going backup to the last 18 months, not all [facility] inpatient encounters are included; 2) Encounters from the Department of [facility] facilities going backup to 280 months. Location Location Details Encounter Type Encounter Number Reason For Visit Attending Provider ADM Date DC Date Status Disposition Source [facility] Outpatient Encounter [id number] JAVON DIXON J 10/21 [facility] Outpatient Encounter [id number] 03/23 [facility] Outpatient Encounter [id number] GUIDO SCHWARZ O 05/05 [facility] N [facility] Outpatient Encounter [id number] 05/06 [facility] N [facility] OFFICE O/P EST MOD 30 MIN [id number] Diagnos is: ICD-10- CM E11.9 Type 2 diabete s mellitu s without complic ations GOLDMAN,T ODD 05/06 [facility] Outpatient Encounter [id number] 05/06 [facility] Social History Combined list of available smoking, tobacco, and other social history from [facility] and [facility] facilities. Social History Type Response Date Comment Sourc e Tobacco smoking status NHIS VA-TOBACCO FORMER USER 05/06/2024 [facility] History of tobacco use VA-TOBACCO QUIT 1 5 YRS OR MORE 05/06/2024 [facility] [facility] History of tobacco use VA-TOBACCO FORMER USER 05/08/2023 [facility] History of tobacco use VA-TOBACCO FORMER USER 02/20/2022 [facility] History of tobacco use VA-TOBACCO FORMER USER 03/09/2021 [facility] History of tobacco use VA-TOBACCO FORMER USER 03/24/2019 [facility] History of tobacco use VA-TOBACCO FORMER USER 07/01/2018 [facility] History of tobacco use QUIT TOBACCO >7 Y EARS AGO 02/27/2018 [facility] Plan of Care List of future care activities from [facility] Veterans Affairs facilities. Additional future care activities may be listed in the Assessment and Plan section. Date/Time Care Activity Care Activity Detail Facili ty 05/06/2025 AMBULATORY - MEDICINE AMBULATORY - MEDICI NE [facility]
--- OUTSIDE RECORDS SUMMARY | 2025-01-24 10:27 | XMS_ITS | Encounter Summary ---
Author Organization [facility] Address [address] [facility] [address] [place] [address] Care Team Providers Care Loom Overhauler Name Role Phone Caesar Martin DO Primary Care Provider [phone] Navi Baker MD Unavailable [phone] Encounter Details Date Type Department Care Team (Late st Contact Info) Description 11/27/2016 [facility] ProviderClaudia MD [address] [place] [address] Social History Tobacco Use Types Packs/Day Years Used Date Smoking Tobacco: Former Sex and Gender Information Value Date Recorded Sex Assigned at Male 11/11/2023 9:13 AM CDT 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
[2025-01-24 17:36] LABS: Anion Gap 9 mmol/L (4-12); Blood Urea Nitrogen 19 mg/dL (9-20); Calcium 9.5 mg/dL (8.4-10.2); Carbon Dioxide 27 mmol/L (22-30); Chloride 100 mmol/L (98-107); Estimated Glomerular Filt Rate 32; Glucose 119 mg/dL (65-110); Potassium 4.2 mmol/L (3.4-5.0); Sodium 136 mmol/L (137-145)
[2025-01-24 17:57] LABS: Add Urine Microscopic? YES; Appearance Urine Cloudy (Clear); Glucose Urine UA Negative (Negative); Leukocyte Esterase Ur 3+ LEU/UL (Negative); Need Manual Microscopic Reviewed; Nitrate Urine Negative (Negative); Non Pathogenic Casts 0-2; Specific Grav Ur 1.013 (1.001-1.035)
== END 2025-01-24 10:25 | disposition home or self-care (01) ==
LOC: ANHGOSHLAB 10:25
PROVIDERS: PCP Internal Medicine; Visit Provider Internal Medicine
DX: N39.0 Urinary tract infection, site not specified (principal); N18.31 Chronic kidney disease, stage 3a
CPT/HCPCS: 36415; 80048; 81001

== ENCOUNTER 2025-04-27 08:57 | Outpatient (CLI) | payer MEDICARE, BC, SELFPAY ==
--- OUTSIDE RECORDS SUMMARY | 2025-04-27 09:51 | XMS_ITS | Clinical Summary ---
Author Organization [facility] [address] [place] [address] Care Team Providers Care Educational Assistant Name Role Phone Caesar Martin DO Primary Care Provider Naiv Baker MD Unavailable [phone] Allergies Active Allergy Reactions Criticality Noted Date Comments Penicillins Hives Medium Medications mo-gcd-ZR-Ca-Fe- lycopen-lutein 0.4-162-18 mg tabletIndication s:Mineral Deficiency Prevention [...] 1 tablet (100 mg total) by mouth driving school instructor before breakfast Active carvediloL (COREG) 25 mg tabletIndication s:hypertension Take 0.5 tablets (12.5 mg total) by mouth 2 (two) times a day Active amLODIPine (NORVASC) 10 mg tabletIndication s:hypertension Take 1 tablet (10 mg total) by mouth driving school instructor before breakfast Active docosahexaenoic acid/epa (FISH OIL ORAL) Take 1 capsule by mouth 3 (three) times a week 2000mg 600mg Take on Friday, Friday, Friday Active cetirizine (ZyrTEC) 10 mg tabletIndication s:Seasonal Allergic Rhinitis Take 1 tablet (10 mg total) by mouth driving school instructor before breakfast Active Trelegy Ellipta 100-62.5-25 mcg inhalerIndicatio ns:Bronchospasm Prevention with COPD Inhale 1 puff driving school instructor before breakfast Active rosuvastatin (CRESTOR) 40 mg [...] tabletIndication s:supplement Take 1 tablet by mouth driving school instructor before breakfast Active metFORMIN (GLUCOPHAGE) 500 mg [...] (12/22/2020): Added automatically from request for surgery [id number] H/O endoscopic sinus surgery 01/05/2018 Chronic rhinosinusitis 01/05/2018 Gastro-esophageal reflux disease without esophag itis 02/09/2013 Asthma 02/09/2013 Overview (06/30/2024): Converted unresolved ICD9, potential mismatch. Nasal polyp 08/28/2012 Encounters Date Type Department Care Team Description 01/31/2025 Telephone [facility] Medicine Surgery [address] [place] [address] Marisela Mosley 01/28/2025 1:20 PM CDT Office Visit [facility] Medicine Urology [address] [facility] [address] [place] [id number] Na Metz NP Increased urinary frequency (Primary Dx); Urinary retention from Last 3 Months Surgical History Surgery Date Site/Laterality Comments COLONOSCOPY CIRCUMCISION VESICOSTOMY TOOTH EXTRACTION CLOSED REDUCTION SHOULDER DISLOCATION Rig ht PROSTATE SURGERY prostatectomy CATARACT EXTRACTION, BILATERAL SINUS SURGERY TOTAL SHOULDER REPLACEMENT Right Medical History Medical History Date Comments Asthma Hypertension GERD (gastroesophageal reflux disease) Prostate cancer (HCC) COPD (chronic obstructive pu lmonary disease) Claustrophobia patient wants zapata rgical team to be aware Arthritis Type 2 diabetes mellitus Hyperlipidemia Chronic kidney disease Cataract Nasal polyps Chronic rhinosinusitis Erectile dysfunction Anemia Chronic obstructive lung disease Wears hearing aid Family History Medical History [...] AM CDT Legal Sex Male 2:05 AM AUTOMOBILE BODY CUSTOMIZER Gender Identity Not on file Sexual Orientation Not on file Obstetrics History Last Filed Vital Signs Vital Sign Reading Time Taken Comments Blood Pressure 118/60 09/10/2024 7:00 AM AUTOMOBILE BODY CUSTOMIZER Pulse 70 09/10/2024 7:00 AM AUTOMOBILE BODY CUSTOMIZER Temperature 36.5 C (97.7 F) 09/10/2024 7:00 AM AUTOMOBILE BODY CUSTOMIZER Respiratory Rate 20 09/10/2024 7:00 AM AUTOMOBILE BODY CUSTOMIZER Oxygen Saturation 95% 09/10/2024 10:27 AM AUTOMOBILE BODY CUSTOMIZER Inhaled Oxygen Concentration - - Weight 81.2 kg (179 lb) 09/09/2024 6:30 AM AUTOMOBILE BODY CUSTOMIZER Height 175.3 cm (5' 9) 09/09/2024 6:30 AM AUTOMOBILE BODY CUSTOMIZER Body Mass Index 26.43 09/09/2024 6:30 AM AUTOMOBILE BODY CUSTOMIZER Plan of Treatment Health Maintenance Due Date Last Done Comments Albumin Creatinine Ratio, Urine 1948 Depression Screening 1948 Hepatitis C Screening 1948 Dilated Eye Exam 1948 Foot Exam 1948 Lipid Panel 1948 Hepatitis B Screening 1966 Abdominal Aortic Aneurysm (A AA) Screen 2013 Well Visit 65+ 2013 Pneumococcal vaccine 65+ (2 of 2 - PPSV23, PCV20, or PCV21) 08/04/2017 06/09/2017 Zoster Vaccine (2 of 2) 05/19/2019 03/24/2019 Hemoglobin A1C 02/17/2025 08/20/2024, 10/28/2023 Covid-19 Vaccine ( - 2024-2 6 season) 2025 10/04/2021, 05/07/2021, 10/04/2020, Additional history exists Influenza Vaccine (#1) 2025 , 04/13/2022, 05/13/2019, Additional history exists eGFR 08/20/2025 08/20/2024, 05/0 07/2023, 10/28/2023, Additional history exists Fall Risk Assessment 09/10/2025 09/10/2024 DTaP/Tdap/Td Vaccine (2 - Td or Tdap) 03/23/2028 03/23/2018 Medical Devices Implanted Type Area Inventory Planner Device Identifier Shelf Expiration Date Model / Serial / Lot [employer] Simplex P Radiopaque Full Dose Cement Bone Sterile 6191-1-010 - [id number] Implanted:Qty: 1 on 11/11/[address] [facility] Right: Shoulder [employer] 08/13/2025 6191-1-010 / / [id number] [employer] Humeral Burchard Shoulder Sidus [id number] - [id number] Implanted:Qty: 1 on 11/11/[address] [facility] Right: Shoulder [employer] 05/08/2032 [id number] / / [id number] [employer] Calvert Post Modular Component Glenoid Sterile Latex Free [id number] - [id number] Implanted:Qty: 1 on 11/11/[address] [facility] Right: Shoulder [employer] 06/13/2033 [id number] / / [id number] [employer] Calvert 3 Peg Modular Shoulder 5 Component Glenoid Sterile Latex [id number] - [id number] Implanted:Qty: 1 on 11/11/[address] [facility] Right: Shoulder [employer] 09/15/2028 [id number] / / [id number] [employer] Sidus Od46 Mm H16 Mm Stem Free Shoulder Head Humeral Sterile Latex Free [id number] - [id number] Implanted:Qty: 1 on 11/11/[address] [facility] Right: Shoulder [employer] 10/24/2032 [id number] / / [id number] [employer] Robert Kit Inflatable Penile Prosthesis Accessory Ams 700 Sterile [id number] - [id number] Implanted:Qty: 1 on 09/09/2024 by Navi Baker MD at [facility] Bilateral: Penis [employer] 11/04/2028 [id number] / / [id number] [employer] Robert Surgical Sling Advance Xp Incont Urinary [id number] - [id number] Implanted:Qty: 1 on 09/09/2024 by Navi Baker MD at [facility] N/A: Urinary Bladder [employer] [id number] 03/14/2026 [id number] / / [id number] [employer] Ams Spectra 1.5cm Concealable Rear Tip Upper Shaper Snapcone [id number] - [id number] Implanted:Qty: 1 on 09/09/2024 by Navi Baker MD at [facility] Bilateral: Penis [employer] [id number] 09/08/2028 [id number] / / [id number] [employer] Ams 700 Ms Pump Preconnect Inflatable [place] Prosthesis 65ml [id number] - [id number] Implanted:Qty: 1 on 09/09/2024 by Navi Baker MD at [facility] Bilateral: Abdomen [employer] [id number] 06/24/2026 [id number] / / [id number] [employer] Robert Prosthesis Penile 18cm Ams 700 Lgx Infpb Tenacio Configuration Engineer Inhbzn [id number] - [id number] Implanted:Qty: 1 on 09/09/2024 by Navi Baker MD at [facility] Bilateral: Penis [employer] [id number] 06/15/2026 [id number] / / [id number] Procedures Procedure Name Priority Date/Time Associated Diagnosis Comments BLADDER SCAN Routine 01/28/2025 1:45 PM CDT Increased urinary frequency EGFR Routine 08/20/2024 11:03 AM AUTOMOBILE BODY CUSTOMIZER Other male erectile dysfunction HEMOGLOBIN A1C Routine 08/20/2024 11:03 AM AUTOMOBILE BODY CUSTOMIZER Type 2 diabetes mellitus without complication, unspecified whether longterm insulin use (HCC) from Last 3 Months or Most Recently Relevant to Health Maintenance Results * BLADDER SCAN (01/28/2025 1:45 PM CDT) Narrative Dyan Bar RN - 01/28/2025 1:45 PM CDT Dyan Bar RN 01/28/2025 3:46 PM BLADDER SCAN Date/Time: 01/28/2025 1:45 PM Performed by: Dyan Bar RN Authorized by: Na Metz NP Local anesthesia used: no Anesthesia: Local anesthesia used: no Sedation: Patient sedated: no Patient tolerance: patient tolerated the procedure well with no immediate complications Comments: Measurement of post-voiding residual urine and/or bladder capacity by ultrasound, non-imaging. PVR = 114ml. us Na Metz NP IN CLINIC/BEDSIDE ORDERA BLES Final Result * (ABNORMAL) eGFR (08/20/2024 11:03 AM AUTOMOBILE BODY CUSTOMIZER) eGFR 52(L) >=60 mL/min/1. 73 m2 Comment: [...] reviewed 2021. Blood 08/20/2024 11:0 3 AM AUTOMOBILE BODY CUSTOMIZER 08/20/2024 11:14 AM AUTOMOBILE BODY CUSTOMIZER us Navi Baker MD LAB BLOOD ORDERABLES Fi nal Result BASHIR TINAJERO [id number] [facility] [place] [address] * (ABNORMAL) Hemoglobin A1c (08/20/2024 11:03 AM AUTOMOBILE BODY CUSTOMIZER) Hgb A1C 6.0(H) 4.0 - 5.6 % Estimated Average Glucose 126 mg/dL BASHIR TINAJERO Comment: The ADA recommends reporting an estimated Average Glucose (eAG) with all Hemoglobin A1c results using the equation derived from a study of 507 normal and diabetic adults. Minority populations were underrepresented and children were not included. (Diabetes Care 31:0143-1445, 2008). The eAG is not equivalent to a fasting glucose. Blood 08/20/2024 11:0 3 AM AUTOMOBILE BODY CUSTOMIZER 08/20/2024 11:13 AM AUTOMOBILE BODY CUSTOMIZER us Nazia Linares FINANCE TEACHER LAB BLOOD ORDERABLES Final Res ult BASHIR [id number] [address] Department [place] [address] from Last 3 Months or Most Recently Relevant to Health Maintenance Additional Health Concerns Infection Onset Date Last Indicated MDR gram neg/ESBL Comment:ESBL E.coli urine 06/02/2024 06/02/2024 06/02/2024 Insurance MEDICARE [facility] MEDICARE [facility] TRADITIONAL TRADITIONAL OOS MEDICARE BLUE TRADITIONAL OOS Advance Directives For more information, please contact: [phone] * Full Code (Latest Code Status on File) Date Activated Date Inactivated Comments 09/09/2024 12:49 PM 09/10/2024 4:14 PM * Full Code Date Activated Date Inactivated Comments 11/11/2023 2:57 PM 11/12/2023 4:50 PM * Full Code Date Activated Date Inactivated Comments 06/25/2021 5:02 PM 06/26/2021 5:22 PM Care Teams Educational Assistant Relationship Specialty Start Date End Date Caesar Martin DO PCP - General 11/08/16 [place] [address] [facility] [address] [place] [address] Consulting Physician Urology 09/10/24
--- OUTSIDE RECORDS SUMMARY | 2025-04-27 09:51 | XMS_ITS | Encounter Summary ---
Author Organization [facility] Address [address] [facility] [address] [place] [address] Care Team Providers Care Jig Fitter Name Role Phone Caesar Martin DO Primary Care Provider Navi Baker MD Unavailable [phone] Encounter Details Date Type Department Care Team (Late st Contact Info) Description 11/27/2016 Orders Only [facility] ProviderClaudia MD [address] [place] [address] Social History Tobacco Use Types Packs/Day Years Used Date Smoking Tobacco: Former Sex and Gender Information Value Date Recorded Sex Assigned at Male 11/11/2023 9:13 AM CDT Legal Sex 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
--- OUTSIDE RECORDS SUMMARY | 2025-04-27 09:51 | XMS_ITS | Clinical Summary ---
Author Organization [facility] torres Address [address] [place] [address] Phone Care Team Providers Care Trim Technician Name Role Phone Unavailable Primary Care Provider [...]
--- OUTSIDE RECORDS SUMMARY | 2025-04-27 09:51 | XMS_ITS | Clinical Summary ---
Author Organization [facility] Gabriela Rodgers Address [address] [place] [address] Care Team Providers Care Bookmaker Map Name Role Phone Caesar Martin DO Primary [...] Comments Blood Pressure 131/70 08/19/2023 1:04 PM AIR QUALITY INSTRUMENT SPECIALIST Pulse 72 08/19/2023 1:04 PM AIR QUALITY INSTRUMENT SPECIALIST Temperature 36.3 C (97.3 F) 08/19/2023 1:04 PM AIR QUALITY INSTRUMENT SPECIALIST Respiratory Rate 14 08/19/2023 1:04 PM AIR QUALITY INSTRUMENT SPECIALIST Oxygen Saturation 94% 08/19/2023 1:04 PM AIR QUALITY INSTRUMENT SPECIALIST Inhaled Oxygen Concentration - - Weight 92.1 kg (203 lb) 08/19/2023 1:04 PM AIR QUALITY INSTRUMENT SPECIALIST Height 175.3 cm (5' 9) 02/27/2023 10:26 [...] (1 - 1-dose 75+ series) 09/27/2023 DIABETES ANNUAL RETINAL EXAM 09/10/2024 09/11/2023 DIABETES HBA1C Q 6 MONTHS 12/31/20242023, 02/09/2024, 08/25/2023, Additional history exists INFLUENZA VACCINE (#1) 2025 05/13/2019 DTAP/TDAP/TD VACCINES (2 - T d or Tdap) 03/23/2028 03/23/2018 Insurance MEDICARE PART A AND B BCBS SUPP Care Teams Bookmaker Map Relationship Specialty Start Date End Date Caesar Martin DO [address] [address] PCP - General Internal Medicine 02/27/23
--- OUTSIDE RECORDS SUMMARY | 2025-04-27 09:51 | XMS_ITS ---
Author Organization [facility] [address] [place] [address] Care Team Providers Care Washroom Cleaner Name Role Phone Caesar Martin DO Primary Care Provider Navi Baker MD Unavailable [phone] Active Problems Problem Noted Date Diagnosed Date [...] (12/22/2020): Added automatically from request for surgery [id number] H/O endoscopic sinus surgery 01/05/2018 Chronic rhinosinusitis [...]
[2025-04-27 13:08] LABS: Albumin Level 4.6 g/dL (3.5-5.1); Anion Gap 12 mmol/L (4-12); Blood Urea Nitrogen 29 mg/dL (9-20); Calcium 9.8 mg/dL (8.4-10.2); Carbon Dioxide 24 mmol/L (22-30); Chloride 98 mmol/L (98-107); Estimated Glomerular Filt Rate 27; Glucose 90 mg/dL (65-110); Sodium 134 mmol/L (137-145)
[2025-04-27 13:17] LABS: Potassium 4.1 mmol/L (3.4-5.0)
[2025-04-27 13:23] LABS: Total Protein Urine Random 90 mg/dL; Ur Ttl Prot Creatinine Ratio 2.14 mg/mg (0-0.20)
[2025-04-28 15:09] LABS: ANA by IFA Rfx Titer/Pattern Negative (.); Albumin 3.8 g/dL (2.9-4.4); Alpha-1-Globulin 0.3 g/dL (0.0-0.4); Alpha-2-Globulin 0.8 g/dL (0.4-1.0); Gamma Globulin 1.1 g/dL (0.4-1.8)
[2025-04-29 15:09] LABS: Albumin, U 59.3 % (.); Alpha-1-Globulin, U 6.4 % (.); Alpha-2-Globulin, U 7.3 % (.); Beta Globulin, U 17.2 % (.); Gamma Globulin, U 9.8 % (.)
[2025-04-29 16:08] LABS: Immunoglobulin A, Qn 126 mg/dL (61-437); Immunoglobulin G, Qn 1129 mg/dL (603-1613); Immunoglobulin M, Qn 176 mg/dL (15-143)
[2025-04-29 20:08] LABS: Anti-GBM Antibodies <0.2 units (0.0-0.9)
[2025-05-02 15:09] LABS: Anti-MPO Antibodies <0.2 units (0.0-0.9); Anti-PR3 Antibodies <0.2 units (0.0-0.9); Saccharomyces cerevisiae, IgA <20.0 Units (0.0-24.9); Saccharomyces cerevisiae, IgG 64.4 Units (0.0-24.9)
== END 2025-04-27 08:58 | disposition home or self-care (01) ==
PROVIDERS: PCP Internal Medicine; Visit Provider Internal Medicine Nephrology
DX: I12.9 Hypertensive chronic kidney disease with stage 1 through stage 4 chronic kidney disease, or unspecified chronic kidney disease (principal); E11.22 Type 2 diabetes mellitus with diabetic chronic kidney disease; N18.32 Chronic kidney disease, stage 3b
CPT/HCPCS: 36415; 80069; 82570; 82784; 84155; 84156; 84165; 84166; 86037; 86038; 86160; 86225; 86334; 86335; 86364; 86671

== ENCOUNTER 2025-05-10 15:18 | Outpatient (CLI) | payer MEDICARE, BC, SELFPAY ==
--- OUTSIDE RECORDS SUMMARY | 2025-05-10 17:27 | XMS_ITS | Clinical Summary ---
Author Organization [facility] [address] [place] [address] Care Team Providers Care Unionmelt Operator Name Role Phone Caesar Martin DO Primary Care Provider Navi Baker MD Unavailable [phone] Allergies Active Allergy Reactions Criticality Noted Date Comments Penicillins Hives Medium Medications zj-vmh-UT-Ca-Fe- lycopen-lutein 0.4-162-18 mg tabletIndication s:Mineral Deficiency Prevention [...] 1 tablet (100 mg total) by mouth control clerk food and beverage before breakfast Active carvediloL (COREG) 25 mg tabletIndication s:hypertension Take 0.5 tablets (12.5 mg total) by mouth 2 (two) times a day Active amLODIPine (NORVASC) 10 mg tabletIndication s:hypertension Take 1 tablet (10 mg total) by mouth control clerk food and beverage before breakfast Active docosahexaenoic acid/epa (FISH OIL ORAL) Take 1 capsule by mouth 3 (three) times a week 2000mg 600mg Take on Friday, Friday, Friday Active cetirizine (ZyrTEC) 10 mg tabletIndication s:Seasonal Allergic Rhinitis Take 1 tablet (10 mg total) by mouth control clerk food and beverage before breakfast Active Trelegy Ellipta 100-62.5-25 mcg inhalerIndicatio ns:Bronchospasm Prevention with COPD Inhale 1 puff control clerk food and beverage before breakfast Active rosuvastatin (CRESTOR) 40 mg [...] tabletIndication s:supplement Take 1 tablet by mouth control clerk food and beverage before breakfast Active metFORMIN (GLUCOPHAGE) 500 mg [...] (12/22/2020): Added automatically from request for surgery [id number] H/O endoscopic sinus surgery 01/05/2018 Chronic rhinosinusitis 01/05/2018 Gastro-esophageal reflux disease without esophag itis 02/09/2013 Asthma 02/09/2013 Overview (06/30/2024): Converted unresolved ICD9, potential mismatch. Nasal polyp 08/28/2012 Surgical History Surgery Date Site/Laterality Comments COLONOSCOPY [...] AM CDT Legal Sex Male 2:05 AM EMERGENCY VETERINARIAN Gender Identity Not on file Sexual Orientation Not on file Obstetrics History Last Filed Vital Signs Vital Sign Reading Time Taken Comments Blood Pressure 118/60 09/10/2024 7:00 AM EMERGENCY VETERINARIAN Pulse 70 09/10/2024 7:00 AM EMERGENCY VETERINARIAN Temperature 36.5 C (97.7 F) 09/10/2024 7:00 AM EMERGENCY VETERINARIAN Respiratory Rate 20 09/10/2024 7:00 AM EMERGENCY VETERINARIAN Oxygen Saturation 95% 09/10/2024 10:27 AM EMERGENCY VETERINARIAN Inhaled Oxygen Concentration - - Weight 81.2 kg (179 lb) 09/09/2024 6:30 AM EMERGENCY VETERINARIAN Height 175.3 cm (5' 9) 09/09/2024 6:30 AM EMERGENCY VETERINARIAN Body Mass Index 26.43 09/09/2024 6:30 AM EMERGENCY VETERINARIAN Plan of Treatment Health Maintenance Due Date [...] Hemoglobin A1C 02/17/2025 08/20/2024, 10/28/2023 Covid-19 Vaccine (5 - 2024-2 6 season) 2025 10/04/2021, 05/07/2021, 10/04/2020, Additional history exists Influenza Vaccine (#1) 2025 , 04/13/2022, 05/13/2019, Additional history exists eGFR 08/20/2025 08/20/2024, 05/0 07/2023, 10/28/2023, Additional history exists Fall Risk Assessment 09/10/2025 09/10/2024 DTaP/Tdap/Td Vaccine (2 - Td or Tdap) 03/23/2028 03/23/2018 Medical Devices Implanted Type Area High School Football Coach Device Identifier Shelf Expiration Date Model / Serial / Lot [employer] Simplex P Radiopaque Full Dose Cement Bone Sterile 6191-1-010 - [id number] Implanted:Qty: 1 on 11/11/2023 at [facility] Right: Shoulder [employer] 08/13/2025 6191-1-010 / / [id number] [employer] Humeral [place] Shoulder Sidus [id number] - [id number] Implanted:Qty: 1 on 11/11/2023 at [facility] Right: Shoulder [employer] 05/08/2032 [id number] / / [id number] [employer] [place] Post Modular Component Glenoid Sterile Latex Free [id number] - [id number] Implanted:Qty: 1 on 11/11/2023 at [facility] Right: Shoulder [employer] 06/13/2033 [id number] / / [id number] [employer] [place] 3 Peg Modular Shoulder 5 Component Glenoid Sterile Latex [id number] - [id number] Implanted:Qty: 1 on 11/11/2023 at [facility] Right: Shoulder [employer] 09/15/2028 [id number] / / [id number] [employer] Sidus Od46 Mm H16 Mm Stem Free Shoulder Head Humeral Sterile Latex Free [id number] - [id number] Implanted:Qty: 1 on 11/11/2023 at [facility] Right: Shoulder [employer] 10/24/2032 [id number] / / [id number] [employer] Robert Kit Inflatable Penile Prosthesis Accessory Ams 700 Sterile [id number] - [id number] Implanted:Qty: 1 on 09/09/2024 by Navi Baker MD at [facility] Bilateral: Penis [employer] Robert 11/04/2028 [id number] / / [id number] [employer] Robert Surgical Sling Advance Xp Incont Urinary 802020-33 - [id number] Implanted:Qty: 1 on 09/09/2024 by Navi Baker MD at [facility] N/A: Urinary Bladder [employer] Robert [id number] 03/14/2026 [id number] / / [id number] [employer] Robert Ams Spectra 1.5cm Concealable Rear Tip Drop Hammer Set Up Operator Snapcone [id number] - [id number] Implanted:Qty: 1 on 09/09/2024 by Navi Baker MD at [facility] Bilateral: Penis [employer] Robert [id number] 09/08/2028 [id number] / / [id number] [employer] Robert Ams 700 Ms Pump Preconnect Inflatable [place] Prosthesis 65ml [id number] - [id number] Implanted:Qty: 1 on 09/09/2024 by Navi Baker MD at [facility] Bilateral: Abdomen [employer] Robert [id number] 06/24/2026 [id number] / / [id number] [employer] Robert Prosthesis Penile 18cm Ams 700 Lgx Infpb Tenacio Payroll Services Analyst Inhbzn [id number] - [id number] Implanted:Qty: 1 on 09/09/2024 by Navi Baker MD at [facility] Bilateral: Penis [employer] Robert [id number] 06/15/2026 [id number] / / [id number] Procedures Procedure Name Priority Date/Time Associated Diagnosis Comments EGFR Routine 08/20/2024 11:03 AM EMERGENCY VETERINARIAN Other male erectile dysfunction HEMOGLOBIN A1C Routine 08/20/2024 11:03 AM EMERGENCY VETERINARIAN Type 2 diabetes mellitus without complication, unspecified whether residential insulin use (HCC) from Last 3 Months or Most Recently Relevant to Health Maintenance Results * (ABNORMAL) eGFR (08/20/2024 11:03 AM EMERGENCY VETERINARIAN) eGFR 52(L) >=60 mL/min/1. 73 m2 Comment: [...] reviewed 2021. Blood 08/20/2024 11:0 3 AM EMERGENCY VETERINARIAN 08/20/2024 11:14 AM EMERGENCY VETERINARIAN us Navi Baker MD LAB BLOOD ORDERABLES Fi nal Result Performing Organization Address [facility] Co de Phone Number BASHIR TINAJERO [address] [facility] [place] [address] * (ABNORMAL) Hemoglobin A1c (08/20/2024 11:03 AM EMERGENCY VETERINARIAN) Hgb A1C 6.0(H) 4.0 - 5.6 % Estimated Average Glucose 126 mg/dL BASHIR TINAJERO Comment: The ADA recommends reporting an estimated Average Glucose (eAG) with all Hemoglobin A1c results using the equation derived from a study of 507 normal and diabetic adults. Minority populations were underrepresented and children were not included. (Diabetes Care 31:1269-0088, 2008). The eAG is not equivalent to a fasting glucose. Blood 08/20/2024 11:0 3 AM EMERGENCY VETERINARIAN 08/20/2024 11:13 AM EMERGENCY VETERINARIAN us Nazia Linares NP LAB BLOOD ORDERABLES Final Res ult Performing Organization Address [facility] de Phone Number BASHIR TINAJERO [address] [facility] [place] [address] from Last 3 Months or Most Recently Relevant to Health Maintenance Additional Health Concerns Infection Onset Date Last Indicated MDR gram neg/ESBL Comment:ESBL E.coli urine 06/02/2024 06/02/2024 06/02/2024 Insurance MEDICARE BLUE TRADITIONAL OOS MEDICARE [place]AR[place] TRADITIONAL BLUE TRADITIONAL OOS MEDICARE [place] TRADITIONAL OOS Advance Directives For more information, please contact: [phone] * Full Code (Latest Code Status on File) Date Activated Date Inactivated Comments 09/09/2024 12:49 PM 09/10/2024 4:14 PM * Full Code Date Activated Date Inactivated Comments 11/11/2023 2:57 PM 11/12/2023 4:50 PM * Full Code Date Activated Date Inactivated Comments 06/25/2021 5:02 PM 06/26/2021 5:22 PM Care Teams Unionmelt Operator Relationship Specialty Start Date End Date Caesar Martin DO PCP - General 11/08/16 [place] [address] [address] [facility] [address] [place] [address] Consulting Physician Urology 09/10/24
--- OUTSIDE RECORDS SUMMARY | 2025-05-10 17:27 | XMS_ITS | Clinical Summary ---
Author Organization [facility] Gabriela oRdgers Address [address] [place] [address] Care Team Providers Care Waistline Joiner Name Role Phone Caesar Martin DO Primary [...] Comments Blood Pressure 131/70 08/19/2023 1:04 PM SATURATION EQUIPMENT OPERATOR Pulse 72 08/19/2023 1:04 PM SATURATION EQUIPMENT OPERATOR Temperature 36.3 C (97.3 F) 08/19/2023 1:04 PM SATURATION EQUIPMENT OPERATOR Respiratory Rate 14 08/19/2023 1:04 PM SATURATION EQUIPMENT OPERATOR Oxygen Saturation 94% 08/19/2023 1:04 PM SATURATION EQUIPMENT OPERATOR Inhaled Oxygen Concentration - - Weight 92.1 kg (203 lb) 08/19/2023 1:04 PM SATURATION EQUIPMENT OPERATOR Height 175.3 cm (5' 9) 02/27/2023 10:26 [...] A AND B BCBS SUPP Care Teams Waistline Joiner Relationship Specialty Start Date End Date Caesar Martin DO [address] [address] PCP - General Internal Medicine 02/27/23
--- OUTSIDE RECORDS SUMMARY | 2025-05-10 17:27 | XMS_ITS | Clinical Summary ---
Author Organization [facility] Jennifer torres Address [address] [place] [address] Phone Care Team Providers Care Customer Marketing Manager Name Role Phone Unavailable Primary Care Provider [...]
--- OUTSIDE RECORDS SUMMARY | 2025-05-10 17:27 | XMS_ITS | Encounter Summary ---
Author Organization [facility] Address [address] [facility] [address] [place] [address] Care Team Providers Care Dial Polisher Name Role Phone Caesar Martin DO Primary Care Provider Navi Baker MD Unavailable [phone] Encounter Details Date Type Department Care Team (Late st Contact Info) Description 11/27/2016 Orders Only [facility] ProviderClaudia MD [address] [place] [address] Social History Tobacco Use Types Packs/Day Years Used Date Smoking Tobacco: Former Sex and Gender Information Value Date Recorded Sex Assigned at Male 11/11/2023 9:13 AM CDT Legal Sex Male 2:05 AM CAFETERIA SERVER Gender Identity Not on file Sexual Orientation [...] documented as of this encounter Care Teams Dial Polisher Relationship Specialty Start Date End Date Caesar Martin DO PCP - General 11/08/16 [place] [address] [address] Consulting Physician Urology 09/10/24 documented as of this encounter
--- OUTSIDE RECORDS SUMMARY | 2025-05-10 17:27 | XMS_ITS ---
Author Organization [facility] [address] [place] [address] Care Team Providers Care Maitre D Name Role Phone Caesar Martin DO Primary Care Provider Navi Baker MD Unavailable [phone] Active Problems Problem Noted Date Diagnosed Date [...] (12/22/2020): Added automatically from request for surgery [id number] H/O endoscopic sinus surgery 01/05/2018 Chronic rhinosinusitis [...]
[2025-05-10 19:14] LABS: Hematocrit 32.1 % (42.0-52.0); Hemoglobin 10.6 g/dL (14.0-18.0); Immature Granulocyte Percent A 0.2 % (0-0.5); Lymphocytes Absolute Auto 0.98 K/mm3 (0.9-3.2); Mean Corpuscular HGB Conc 33.0 g/dl (32-36); Mean Corpuscular Hemoglobin 29.4 pg (26-34); Mean Corpuscular Volume 88.9 fl (80-100); Nucleated Red Blood Cells Absolute Auto 0.000 K/mm3 (0.0-0.012); Nucleated Red Blood Cells Perc 0.0 % (0.0-0.2); Platelet Count Result 170 k/mm3 (150-375); Red Blood Count 3.61 M/mm3 (4.6-6.20); White Blood Count 8.6 K/mm3 (4.5-10.0)
[2025-05-10 19:42] LABS: Prostate Specific Antigen 0.2 ng/mL (< OR = 4.0); Thyroid Stimulating Hormone 1.200 uIU/mL (0.465-4.680)
[2025-05-10 19:47] LABS: Ferritin 12.70 ng/mL (11.1-264)
== END 2025-05-10 15:19 | disposition home or self-care (01) ==
LOC: ANHGOSHLAB 15:19
PROVIDERS: PCP Internal Medicine; Visit Provider Internal Medicine
DX: I48.91 Unspecified atrial fibrillation (principal); C61 Malignant neoplasm of prostate; Z12.5 Encounter for screening for malignant neoplasm of prostate
CPT/HCPCS: 36415; 82728; 84153; 84443; 85025

== ENCOUNTER 2025-06-03 13:29 | Outpatient (CLI) | payer MEDICARE, BC, SELFPAY ==
--- OUTSIDE RECORDS SUMMARY | 2025-06-03 13:33 | XMS_ITS | Clinical Summary ---
Author Organization [facility] Address [address] [place] [address] Phone Care Team Providers Care Anesthesiology Technologist Name Role Phone Unavailable Primary Care Provider [...]
--- OUTSIDE RECORDS SUMMARY | 2025-06-03 13:33 | XMS_ITS | Encounter Summary ---
Author Organization [facility] Address [address] [facility] [address] [place] [address] Care Team Providers Care Accounting Clerk Name Role Phone Caesar Martin DO Primary Care Provider [phone] Navi Baker MD Unavailable [phone] Encounter Details Date Type Department Care Team (Late st Contact Info) Description 11/27/2016 Orders Only [facility] ProviderClaudia MD [address] [place] [address] Social History Tobacco Use Types Packs/Day Years Used Date Smoking Tobacco: Former Sex and Gender Information Value Date Recorded Sex Assigned at Male 11/11/2023 9:13 AM CDT Legal Sex Male 2:05 AM 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
--- OUTSIDE RECORDS SUMMARY | 2025-06-03 13:33 | XMS_ITS ---
Author Organization [facility] [address] [place] [address] Care Team Providers Care Nautical Instrument Mechanic Name Role Phone Caesar Martin DO Primary Care Provider [phone] Navi Baker MD Unavailable [phone] Active Problems Problem Noted Date Diagnosed Date [...] (12/22/2020): Added automatically from request for surgery [id number] H/O endoscopic sinus surgery 01/05/2018 Chronic rhinosinusitis [...]
--- OUTSIDE RECORDS SUMMARY | 2025-06-03 13:33 | XMS_ITS | Clinical Summary ---
Author Organization [facility] Gabriela Rodgers Address [address] [facility] [address] Care Team Providers Care Aboriginal Community Council Member Name Role Phone Caesar Martin DO Primary [...] Comments Blood Pressure 131/70 08/19/2023 1:04 PM ROOM SERVER Pulse 72 08/19/2023 1:04 PM ROOM SERVER Temperature 36.3 C (97.3 F) 08/19/2023 1:04 PM ROOM SERVER Respiratory Rate 14 08/19/2023 1:04 PM ROOM SERVER Oxygen Saturation 94% 08/19/2023 1:04 PM ROOM SERVER Inhaled Oxygen Concentration - - Weight 92.1 kg (203 lb) 08/19/2023 1:04 PM ROOM SERVER Height 175.3 cm (5' 9) 02/27/2023 10:26 [...] A AND B BCBS SUPP Care Teams Aboriginal Community Council Member Relationship Specialty Start Date End Date Caesar Martin DO [address] [address] PCP - General Internal Medicine 02/27/23
--- OUTSIDE RECORDS SUMMARY | 2025-06-03 13:33 | XMS_ITS | Clinical Summary ---
Author Organization [facility] [address] [place] [address] Care Team Providers Care Pelletizer Tender Name Role Phone Caesar Martin DO Primary Care Provider [phone] Navi Baker MD Unavailable [phone] Allergies Active Allergy Reactions Criticality Noted Date Comments Penicillins Hives Medium Medications du-sun-TI-Ca-Fe- lycopen-lutein 0.4-162-18 mg tabletIndication s:Mineral Deficiency Prevention [...] 1 tablet (100 mg total) by mouth pattern fitter before breakfast Active carvediloL (COREG) 25 mg tabletIndication s:hypertension Take 0.5 tablets (12.5 mg total) by mouth 2 (two) times a day Active amLODIPine (NORVASC) 10 mg tabletIndication s:hypertension Take 1 tablet (10 mg total) by mouth pattern fitter before breakfast Active docosahexaenoic acid/epa (FISH OIL ORAL) Take 1 capsule by mouth 3 (three) times a week 2000mg 600mg Take on Friday, Friday, Friday Active cetirizine (ZyrTEC) 10 mg tabletIndication s:Seasonal Allergic Rhinitis Take 1 tablet (10 mg total) by mouth pattern fitter before breakfast Active Trelegy Ellipta 100-62.5-25 mcg inhalerIndicatio ns:Bronchospasm Prevention with COPD Inhale 1 puff pattern fitter before breakfast Active rosuvastatin (CRESTOR) 40 mg [...] tabletIndication s:supplement Take 1 tablet by mouth pattern fitter before breakfast Active metFORMIN (GLUCOPHAGE) 500 mg [...] (12/22/2020): Added automatically from request for surgery [id number] H/O endoscopic sinus surgery 01/05/2018 Chronic rhinosinusitis [...] AM CDT Legal Sex Male 2:05 AM BOBBIN TRUCKER Gender Identity Not on file Sexual Orientation Not on file Last Filed Vital Signs Vital Sign Reading Time Taken Comments Blood Pressure 118/60 09/10/2024 7:00 AM BOBBIN TRUCKER Pulse 70 09/10/2024 7:00 AM BOBBIN TRUCKER Temperature 36.5 C (97.7 F) 09/10/2024 7:00 AM BOBBIN TRUCKER Respiratory Rate 20 09/10/2024 7:00 AM BOBBIN TRUCKER Oxygen Saturation 95% 09/10/2024 10:27 AM BOBBIN TRUCKER Inhaled Oxygen Concentration - - Weight 81.2 kg (179 lb) 09/09/2024 6:30 AM BOBBIN TRUCKER Height 175.3 cm (5' 9) 09/09/2024 6:30 AM BOBBIN TRUCKER Body Mass Index 26.43 09/09/2024 6:30 AM BOBBIN TRUCKER Plan of Treatment Health Maintenance Due Date [...] 03/23/2028 03/23/2018 Medical Devices Implanted Type Area Braille Operator Device Identifier Shelf Expiration Date Model / Serial / Lot [employer] Simplex P Radiopaque Full Dose Cement Bone Sterile 6191-1-010 - [id number] Implanted:Qty: 1 on 11/11/2023 at [facility] Right: Shoulder [employer] 08/13/2025 6191-1-010 / / [id number] [employer] Humeral [place] Shoulder Sidus [id number] 0 [id number] - [id number] Implanted:Qty: 1 on 11/11/2023 at [facility] Right: Shoulder [employer] 05/08/2032 [id number] / / [id number] [employer] [place] Post Modular Component Glenoid Sterile Latex Free [id number] - [id number] Implanted:Qty: 1 on 11/11/2023 at [facility] Right: Shoulder [employer] 06/13/2033 [id number] / / [id number] [employer] [place] 3 Peg Modular Shoulder 5 Component Glenoid Sterile Latex [id number] - [id number] Implanted:Qty: 1 on 11/11/2023 at [facility] Right: Shoulder [employer] 09/15/2028 [id number] / / [id number] [employer] Sidus Od46 Mm H16 Mm Stem Free Shoulder Head Humeral Sterile Latex Free [id number] - [id number] Implanted:Qty: 1 on 11/11/2023 at [facility] Right: Shoulder [employer] 10/24/2032 [id number] / / [id number] [employer] Robert Kit Inflatable Penile Prosthesis Accessory Ams 700 Sterile [id number] - [id number] Implanted:Qty: 1 on 09/09/2024 by Navi Baker MD at [facility] Bilateral: Penis [employer] 11/04/2028 [id number] / / [id number] [employer] Robert Surgical Sling Advance Xp Incont Urinary 079093-63 - [id number] Implanted:Qty: 1 on 09/09/2024 by Navi Baker MD at [facility] N/A: Urinary Bladder [employer] Robert [id number] 03/14/2026 [id number] / / [id number] [employer] Robert Ams Spectra 1.5cm Concealable Rear Tip Financial Institution President Snapcone [id number] - [id number] Implanted:Qty: 1 on 09/09/2024 by Navi Baker MD at [facility] Bilateral: Penis [employer] Robert [id number] 09/08/2028 [id number] / / [id number] [employer] Robert Ams 700 Ms Pump Preconnect Inflatable [place] Prosthesis 65ml [id number] - [id number] Implanted:Qty: 1 on 09/09/2024 by Navi Baker MD at [facility] Bilateral: Abdomen [employer] Robert [id number] 06/24/2026 [id number] / / [id number] [employer] Robert Prosthesis Penile 18cm Ams 700 Lgx Infpb Tenacio Tipple Oiler Inhbzn [id number] - [id number] Implanted:Qty: 1 on 09/09/2024 by Navi Baker MD at [facility] Bilateral: Penis [employer] Scientific Robert [id number] 06/15/2026 [id number] / / [id number] Procedures Procedure Name Priority Date/Time Associated Diagnosis Comments EGFR Routine 08/20/2024 11:03 AM BOBBIN TRUCKER Other male erectile dysfunction HEMOGLOBIN A1C Routine 08/20/2024 11:03 AM BOBBIN TRUCKER Type 2 diabetes mellitus without complication, unspecified whether intermediate manager insulin use (HCC) from Last 3 Months or Most Recently Relevant to Health Maintenance Results * (ABNORMAL) eGFR (08/20/2024 11:03 AM BOBBIN TRUCKER) eGFR 52(L) >=60 mL/min/1. 73 m2 Comment: [...] reviewed 2021. Blood 08/20/2024 11:0 3 AM BOBBIN TRUCKER 08/20/2024 11:14 AM BOBBIN TRUCKER us Navi Baker MD LAB BLOOD ORDERABLES Fi nal Result Performing Organization Address [facility] Co de Phone Number BASHIR TINAJERO [address] [address] [facility] [address] [place], [place] [id number] * (ABNORMAL) Hemoglobin A1c (08/20/2024 11:03 AM BOBBIN TRUCKER) Hgb A1C 6.0(H) 4.0 - 5.6 % Estimated Average Glucose 126 mg/dL BASHIR TINAJERO Comment: The ADA recommends reporting an estimated Average Glucose (eAG) with all Hemoglobin A1c results using the equation derived from a study of 507 normal and diabetic adults. Minority populations were underrepresented and children were not included. (Diabetes Care 31:6067-2039, 2008). The eAG is not equivalent to a fasting glucose. Blood 08/20/2024 11:0 3 AM BOBBIN TRUCKER 08/20/2024 11:13 AM BOBBIN TRUCKER us Nazia Linares NP LAB BLOOD ORDERABLES Final Res ult Performing Organization Address [facility] de Phone Number BASHIR TINAJERO [address] [address] [facility] [address] [place], [place] [id number] from Last 3 Months or Most Recently Relevant to Health Maintenance Additional Health Concerns Infection Onset Date Last Indicated MDR gram neg/ESBL Comment:ESBL E.coli urine 06/02/2024 06/02/2024 06/02/2024 Insurance MEDICARE [place] TRADITIONAL OOS MEDICARE KARIN TRADITIONAL Member Subscriber Plan / Payer ( fective 2013-Present) Name:Ramirez Shaw Relation to Subscriber:Self Name:RAMIREZ SHAW Payer ID:[id number] (NAIC) Type:Zady Address: [address] TRADITIONAL OOS MEDICARE [place] TRADITIONAL OOS Advance Directives For more information, please contact: [phone] * Full Code (Latest Code Status on File) Date Activated Date Inactivated Comments 09/09/2024 12:49 PM 09/10/2024 4:14 PM * Full Code Date Activated Date Inactivated Comments 11/11/2023 2:57 PM 11/12/2023 4:50 PM * Full Code Date Activated Date Inactivated Comments 06/25/2021 5:02 PM 06/26/2021 5:22 PM Care Teams Pelletizer Tender Relationship Specialty Start Date End Date Caesar Martin DO PCP - General 11/08/16 [place] [address] [address] [facility] [address] [place] [address] Consulting Physician Urology 09/10/24
--- NOTE | 2025-06-03 13:41 | ECHO_ITS ---
Patient Info Name: Ramirez Shaw Age: 74 years : 1950 Gender: Male Ht: 68 in Wt: 174 lbs BSA: 1.96 m2 HR: 61 bpm BP: 126 / 75 mmHg Heart Rhythm: Atrial Fibrillation Technical Quality: Good Exam Date: 06/03/2025 1:43 PM Patient Status: O Admit Date: 06/03/2025 Exam Type: CA echo doppler color flow Complete two-dimensional, color flow and Doppler transthoracic echocardiogram is performed. Fish Warden: Ananya Zuniga Attending Provider: Caesar Martin DO Summary 1. Complete two-dimensional, color flow and Doppler transthoracic echocardiogram is performed. 2. Left ventricular chamber dimension is normal. 3. Left ventricular systolic function is normal, estimated at 60-65. 4. The left ventricular diastolic function is abnormal. 5. E/e' 12 is mildly elevated. 6. Atrial fibrillation. 7. Left atrial chamber dimension is mildly enlarged. 8. Right atrial chamber dimension is mildly enlarged. 9. There is mild aortic valve sclerosis. 10. There is trace mitral valve regurgitation. 11. There is trace tricuspid valve regurgitation. 12. No pulmonary hypertension, estimated pulmonary arterial systolic pressure is 27 mmHg. 13. There is trace pulmonic regurgitation. 14. The aortic root size at the sinus of Valsalva is borderline dilated at 4.0 cm. 15. The prox ascending aorta size is borderline dilated at 4.0 cm. Left Ventricle E/e' 12 is mildly elevated. Left ventricular chamber dimension is normal. Left ventricular systolic function is normal, estimated at 60-65. The left ventricular diastolic function is abnormal. Atrial fibrillation. Right Ventricle Right ventricular chamber dimension is normal. Right ventricular systolic function is normal and with normal TAPSE 2.3 cm. Left Atria Left atrial chamber dimension is mildly enlarged. Right Atria Right atrial chamber dimension is mildly enlarged. Aortic Valve The aortic valve is trileaflet. There is mild aortic valve sclerosis. There is no aortic valve stenosis. There is no aortic valve regurgitation. Pulmonic Valve There is trace pulmonic regurgitation. Mitral Valve There is no mitral valve stenosis. There is trace mitral valve regurgitation. Tricuspid Valve There is trace tricuspid valve regurgitation. No pulmonary hypertension, estimated pulmonary arterial systolic pressure is 27 mmHg. Pericardium/Pleural There is no pericardial effusion. Inferior Vena Cava Normal inferior vena cava with >50% collapse upon inspiration consistent with normal right atrial pressure, 5 mmHg. Aorta The aortic root size at the sinus of Valsalva is borderline dilated at 4.0 cm. The prox ascending aorta size is borderline dilated at 4.0 cm. Left Ventricular Outflow Tract Name Value Normal LVOT 2D LVOT Diameter 2.3 cm LVOT Doppler LVOT Peak Velocity 101 cm/s LVOT Peak Gradient 4 mmHg LVOT Mean Gradient 2 mmHg LVOT VTI 18 cm LVOT VTI/AV VTI Ratio 0.8 LVOT Stroke Volume 75 ml LVOT CO 4.6 l/min LVOT CI 2.3 l/min/m2 Pulmonic Valve Name Value Normal RVOT Doppler RVOT Peak Velocity 55 cm/s RVOT Peak Gradient 1 mmHg PV Doppler PV Peak Velocity 101 cm/s PV Peak Gradient 4 mmHg Mitral Valve Name Value Normal MV Doppler MV Peak Gradient 9 mmHg MV Mean Gradient 2 mmHg MV Area (Cont Eq VTI) 2.2 cm2 MV Diastolic Function MV E Peak Velocity 130 cm/s MV A Peak Velocity 1 cm/s MV E/A 90.2 MV Decel Time (PW) 169 ms MV Annular TDI MV E/e' (Septal) 13.5 MV E/e' (Lateral) 11.6 MV E/e' (Average) 12.6 Tricuspid Valve Name Value Normal TV Regurgitation Doppler TR Peak Velocity 236 cm/s TR Peak Gradient 20 mmHg Estimated PAP/RSVP RA Pressure 5 mmHg <=5 PA Systolic Pressure 27 mmHg <36 RV Systolic Pressure 27 mmHg <36 TV Annular TDI TV Lateral Angelique s' Velocity 14.5 cm/s >=9.5 Aorta Name Value Normal Ascending Aorta Ao Root Diameter (MM) 4.1 cm Ao Root Diam Index (MM) 2.1 cm/m2 Aortic Valve Name Value Normal AV Doppler AV Peak Velocity 111 cm/s AV Peak Gradient 5 mmHg AV Mean Gradient 3 mmHg AV VTI 23 cm AV Area (Cont Eq VTI) 3.2 cm2 >=3.0 AV Area (Cont Eq Colby) 3.8 cm2 AV DI (Colby) 0.91 AV Regurgitation 2D LVOT Area 4.2 cm2 Ventricles Name Value Normal LV Dimensions 2D/MM IVS Diastolic Thickness (2D) 0.9 cm 0.6-1.0 LVID Diastole (2D) 5.6 cm 4.2-5.8 LVIW Diastolic Thickness (2D) 0.9 cm 0.6-1.0 LVID Systole (2D) 3.6 cm 2.5-4.0 LVOT Diameter 2.3 cm LV Mass (2D Cubed) 203.53 g 88.00-224.00 LV Mass Index (2D Cubed) 104 g/m2 49-115 Relative Wall Thickness (2D) 0.33 <=0.42 LV Fractional Shortening/Ejection Fraction 2D/MM LV Fractional Shortening (2D) 37 % 25-43 LV EF (2D Teichholz) 66 % LV Diastolic Volume (4C MOD) 76 ml LV EF (4C MOD) 67 % LV Diastolic Volume (2C MOD) 111 ml LV EF (2C MOD) 64 % LV Diastolic Volume (BP MOD) 95 ml 62-150 LV Diastolic Volume Index (BP MOD) 49 ml/m2 34-74 LV Systolic Volume (BP MOD) 32 ml 21-61 LV Systolic Volume Index (BP MOD) 16 ml/m2 11-31 LV EF (BP MOD) 66 % 52-72 LV Diastolic Length (4C) 7.4 cm LV Systolic Length (4C) 6.3 cm LV Stroke Volume (4C MOD) 50 ml Atria Name Value Normal LA Dimensions LA Dimension (MM) 5.5 cm 3.0-4.0 LA Volume (4C A-L) 59 ml LA Volume (BP A-L) 70 ml RA Dimensions RA Area (4C) 27.2 cm2 <=18.0 Report Signatures
== END 2025-06-03 13:30 | disposition home or self-care (01) ==
LOC: ANHCARD 13:30
PROVIDERS: PCP Internal Medicine; Visit Provider Internal Medicine
DX: R93.1 Abnormal findings on diagnostic imaging of heart and coronary circulation (principal); I48.91 Unspecified atrial fibrillation
CPT/HCPCS: 93306

== ENCOUNTER 2025-07-06 00:36 | Day surgery (SDC) | payer MEDICARE, BC, SELFPAY ==
[2025-07-01 10:56] VITALS: BMI 26.6
[2025-07-06 06:20] VITALS: BP 125/65; PULSE 81; RESP 16; TEMP 36.3; O2SAT 98
[2025-07-06] MEDS: LACTATED RINGERS 1,000 ML 150 ML IV CONT (06:32)
--- NOTE | 2025-07-06 06:42 | WPDANESEPPF ---
Anes - Initial Pre Proc Eval Procedure: Operation Date: 07/06/25 07:30 Proposed Procedures p EGD & Diagnostic Colonoscopy - Gianni Ackerman MD Date/Time: 07/06/25 06:42 Surgeon: Gianni Ackerman MD Pre Op Diagnosis: Iron deficiency anemia, unspecified Patient Data Age: 74 Gender: M Height: 1.73 m Weight: 78.6 kg Last Vital Signs Temp 36.3 C L 07/06/25 06:20 Pulse 81 07/06/25 06:20 Resp 16 07/06/25 06:20 BP 125/65 07/06/25 06:20 Pulse Ox 98 07/06/25 06:20 O2 Del Method Room Air 07/06/25 06:20 Allergies Allergy/AdvReac Type Severity Reaction Status Date / Time No Known Allergies Allergy Verified 07/06/25 06:16 Home Medications ?Medication ?Instructions ?Recorded ?Confirmed ?Type albuterol sulfate 90 mcg/actuation 2 puff inhalation Q4-6H PRN 01/21/20 07/01/25 History aerosol inhaler (Proventil HFA) shortness of breath or wheezing felodipine 10 mg tablet,extended 10 mg PO DAILY 01/21/20 07/06/25 History release 24 hr nebivolol 20 mg tablet (Bystolic) 20 mg PO DAILY 01/21/20 07/06/25 History atorvastatin 20 mg tablet 20 mg PO DAILY 05/12/20 07/06/25 History omega-3 fatty acids 1,000 mg 1,000 mg PO 3XW 02/12/24 07/06/25 History capsule (Fish Oil Concentrate) omeprazole magnesium 20 mg 20 mg PO DAILY 07/05/24 07/06/25 History tablet,delayed release (Prilosec OTC) fluticasone fur. 100 mcg-umeclid 1 inh inhalation Q24H #60 ea 10/29/24 07/06/25 Rx 62.5 mcg-vilant 25 mcg inhalat.powder (Trelegy Ellipta) epinephrine 0.3 mg/0.3 mL 0.3 mg (0.3 mL) IM ONCE #1 ea 01/07/25 05/11/25 Rx injection, auto-injector (EpiPen) apixaban 5 mg tablet (Eliquis) 5 mg PO BID atrial fibrilation #60 05/10/25 07/06/25 Rx tabs semaglutide 1 mg/dose (4 mg/3 mL) 1 mg (0.75 mL) subcut WEEKLY #3 mL 06/13/25 07/06/25 Rx subcutaneous pen injector (Ozempic) telmisartan 40 mg tablet (Micardis) 40 mg PO DAILY #30 tabs 07/04/25 07/06/25 Rx Laboratory Tests 07/06/25 06:30 POC Capillary Glucose 112 H mg/dl (65-105) Patient hx anesthesia problems: none Family hx anesthesia problems: none Results Review: All pre-operative results and documents have been reviewed as part of the pre-operative evaluation. [facility] Past Medical History Medical History Atrial fibrillation with controlled ventricular rate Bacteriuria Acute kidney injury superimposed on stage 3a chronic kidney disease COPD (chronic obstructive pulmonary disease) Type 2 diabetes mellitus with chronic kidney disease Diabetes type 2, uncontrolled DM hyperosmolarity type II, uncontrolled CKD (chronic kidney disease) stage 3, GFR 30-59 ml/min Elevated PSA Pulmonary nodule Diabetes HTN (hypertension) Erectile dysfunction Asthma Hemorrhoids Heartburn Chicken pox Mumps Measles Hyperlipidemia Asthma Surgical History Surgical History History of prostate biopsy Family History Family History Mother Hypertension Father Family history of osteoarthritis Social History Social History Social History: Caffeine-none Smoking status: Former smoker Smoking end date: 07/14/89 Alcohol intake: current Alcohol use details: beer Substance use: never Substance use type: does not use Anes - Eval Final PreProcedure Day of Procedure 07/06/25 06:42 Patient weight: overweight Heart: irregular rhythm Lungs: decreased breath sounds Airway: Mallampati scale class II Neurological: alert and oriented Last oral intake: >/= 8 hours ASA classification: III Emergent: no Anesthetic plan: proceed Anesthesia type and monitoring: general GIVS and standard monitoring Results Review: All pre-operative results and documents have been reviewed as part of the pre-operative evaluation. Informed Consent: The patient's anesthetic plan and its attendant risks and benefits were discussed with the patient/family/POA. Questions were solicited and answers provided to the satisfaction of the patient/family/POA.
--- NOTE | 2025-07-06 07:31 | PM.HPGS ---
History of Present Illness History of Present Illness Consent: Risks, benefits, and alternatives have been discussed and questions answered. Patient agrees to proceed with procedure. Chief complaint: Iron deficiency anemia, unspecified Narrative: Ramirez Shaw is a 74 year old male here for egd and colonoscopy because of anemia, last colonoscopy 11 years ago Review of Systems Review of Systems: All systems reviewed & are unremarkable except as noted in HPI and below PMFSH Past Medical History Medical History Atrial fibrillation with controlled ventricular rate Bacteriuria Acute kidney injury superimposed on stage 3a chronic kidney disease COPD (chronic obstructive pulmonary disease) Type 2 diabetes mellitus with chronic kidney disease Diabetes type 2, uncontrolled DM hyperosmolarity type II, uncontrolled CKD (chronic kidney disease) stage 3, GFR 30-59 ml/min Elevated PSA Pulmonary nodule Diabetes HTN (hypertension) Erectile dysfunction Asthma Hemorrhoids Heartburn Chicken pox Mumps Measles Hyperlipidemia Asthma Surgical History Surgical History History of prostate biopsy Family History Family History Mother Hypertension Father Family history of osteoarthritis Social History Social History Social History: Caffeine-none Smoking status: Former smoker Smoking end date: 07/14/89 Alcohol intake: current Alcohol use details: beer Substance use: never Substance use type: does not use Meds Home Medications and Allergies Home Medications ?Medication ?Instructions ?Recorded ?Confirmed ?Type albuterol sulfate 90 mcg/actuation 2 puff inhalation Q4-6H PRN 01/21/20 07/01/25 History aerosol inhaler (Proventil HFA) shortness of breath or wheezing felodipine 10 mg tablet,extended 10 mg PO DAILY 01/21/20 07/06/25 History release 24 hr nebivolol 20 mg tablet (Bystolic) 20 mg PO DAILY 01/21/20 07/06/25 History atorvastatin 20 mg tablet 20 mg PO DAILY 05/12/20 07/06/25 History omega-3 fatty acids 1,000 mg 1,000 mg PO 3XW 02/12/24 07/06/25 History capsule (Fish Oil Concentrate) omeprazole magnesium 20 mg 20 mg PO DAILY 07/05/24 07/06/25 History tablet,delayed release (Prilosec OTC) fluticasone fur. 100 mcg-umeclid 1 inh inhalation Q24H #60 ea 10/29/24 07/06/25 Rx 62.5 mcg-vilant 25 mcg inhalat.powder (Trelegy Ellipta) epinephrine 0.3 mg/0.3 mL 0.3 mg (0.3 mL) IM ONCE #1 ea 01/07/25 05/11/25 Rx injection, auto-injector (EpiPen) apixaban 5 mg tablet (Eliquis) 5 mg PO BID atrial fibrilation #60 05/10/25 07/06/25 Rx tabs semaglutide 1 mg/dose (4 mg/3 mL) 1 mg (0.75 mL) subcut WEEKLY #3 mL 06/13/25 07/06/25 Rx subcutaneous pen injector (Ozempic) telmisartan 40 mg tablet (Micardis) 40 mg PO DAILY #30 tabs 07/04/25 07/06/25 Rx Allergies Allergy/AdvReac Type Severity Reaction Status Date / Time No Known Allergies Allergy Verified 07/06/25 06:16 Vital Signs Vital Signs - 24 hr 07/06/25 06:20 Temperature 97.3 F L Pulse Rate 81 Respiratory Rate 16 Blood Pressure 125/65 Pulse Oximetry 98 Oxygen Delivery Room Air Exam Const: General: comfortable and no acute distress HENMT: Face/Nose/Sinus: Normal nares present Eyes: General: appearance normal, both eyes and all related structures Neck: Neck: no JVD Resp: Auscultation: clear to auscultation bilaterally Cardio: Rate: regular rate Rhythm: regular rhythm GI: Inspection: non-distended GI Palp: Yes Soft to palpation Skin: General skin exam: normal color Extrem: General: normal to inspection Psych: Mental Status: mental status grossly normal Assessment and Plan Assessment and plan (1) Anemia: Qualifiers: Anemia type: unspecified type Qualified Code(s): D64.9 - Anemia, unspecified Code(s): D64.9 - Anemia, unspecified Status: Acute Assessment and Plan: egd and colonoscopy
--- NOTE | 2025-07-06 07:39 | SUR.OPER ---
EGD [id number]. Colonoscopy start time 741.
--- NOTE | 2025-07-06 08:03 | S_PTH ---
PATIENT: Ramirez Shaw LOC: [facility]#:[id number] AGE/SX: 74/M ROOM: RE07/06/[address]: Gianni Ackerman MD : 1950 BED: DIS: 07/06/2025 SPEC #: [id number] RECD: 07/06/25 09:56 STATUS: FLOYD REMonalisa #: [id number] LAURA: 07/06/25 08:[address]: Gianni Ackerman DEPT: [facility] Surgical RECD BY: Carmencita Sutton ENTERED: 07/06/25 09:58 SP TYPE: Surgical OTHR DR: Caesar Martin DO Tissues: A - Small Bowel Bx B - Gastric Biopsy C - Colon Polypectomy D - Colon Polypectomy E - Colon Polypectomy Procedures: Hematoxylin and Eosin Stain Gross and Microscopic Level 4
[2025-07-06 08:05] VITALS: BP 101/64; PULSE 71; RESP 16; O2SAT 97
[2025-07-06 08:15] VITALS: BP 90/51; PULSE 67; RESP 19; O2SAT 97
[2025-07-06 08:25] VITALS: BP 102/55; PULSE 69; RESP 19; O2SAT 98
== END 2025-07-06 08:39 | disposition home or self-care (01) ==
PROVIDERS: PCP Internal Medicine; Referring Provider Internal Medicine; Visit Provider Internal Medicine Gastroenterology
PROC: 0DJ08ZZ Inspection of Upper Intestinal Tract, Via Natural or Artificial Opening Endoscopic (ICD-10-PCS; CPT 45378; principal; 2025-07-06 07:30)
DX: D50.9 Iron deficiency anemia, unspecified (principal); D12.2 Benign neoplasm of ascending colon; D12.3 Benign neoplasm of transverse colon; D12.4 Benign neoplasm of descending colon; K57.30 Diverticulosis of large intestine without perforation or abscess without bleeding; K64.8 Other hemorrhoids; I48.91 Unspecified atrial fibrillation; J44.9 Chronic obstructive pulmonary disease, unspecified; E11.22 Type 2 diabetes mellitus with diabetic chronic kidney disease; N18.30 Chronic kidney disease, stage 3 unspecified; I12.9 Hypertensive chronic kidney disease with stage 1 through stage 4 chronic kidney disease, or unspecified chronic kidney disease; E78.5 Hyperlipidemia, unspecified; Z87.891 Personal history of nicotine dependence; Z79.01 Long term (current) use of anticoagulants; Z79.85 Long-term (current) use of injectable non-insulin antidiabetic drugs
CPT/HCPCS: 43239; 45385; 82948; 88305; J7120